=== PATIENT | female | born 1975 | race Two or more races ===

== ENCOUNTER 2024-05-13 08:09 | Outpatient (OUT) | payer BC, SELFPAY ==
--- NOTE | 2024-05-13 | XR_ITS ---
The [address] [address] Patient Name: ALEC LAM MRN: [id number] date: 1975 Sex: F Assigned Patient Location: [facility] Current Patient Location: Accession/Order Number: [id number] Exam Date: 05/13/2024 08:10 Report Date: 05/14/2024 07:55 At the request of: MIGUEL SAAVEDRA Procedure: XR foot RT min 3V PROCEDURE: XR foot RT min 3V HISTORY: RIGHT FOOT PAIN ; chronic first and second metatarsophalangeal joint pain; no known injury COMPARISON: None. FINDINGS: BONES:Mild narrowing of the first metatarsophalangeal joint and tiny degenerative osteophytes along the lateral margin. Mild degenerative hepatic spurring of the calcaneus. No fracture, dislocation, bone lesion. No significant loss of plantar arch. SOFT TISSUES:No visible soft tissue swelling. EFFUSION:None visible. OTHER: Negative. XR/XR foot RT min 3V IMPRESSION: 1. Mild degenerative change of the first metatarsophalangeal joint which may contribute to patient's symptoms. Electronically authenticated by: PER FLYNN Date: 05/14/2024 07:55
== END 2024-05-13 08:10 | disposition home or self-care (01) ==
PROVIDERS: Visit Provider Podiatrist Foot & Ankle Surgery
DX: M79.671 Pain in right foot (principal)
CPT/HCPCS: 73630

== ENCOUNTER 2024-07-13 08:07 | Outpatient (OUT) | payer BC, SELFPAY ==
--- NOTE | 2024-07-13 09:09 | P.GSHP_ITS ---
History of Present Illness History of Present Illness Chief complaint: hallux rigidus right foot Narrative: Patient presents for presurgical testing. The patient reports a long history of right great toe pain for which she has received injections, worn orthotics, and tried alternative footwear with no relief of symptoms. She denies any trauma, injury, numbness, tingling, weakness, or any other complaints. She does take meloxicam which provides little relief. Review of Systems ROS Narrative REVIEW OF SYSTEMS: Negative except as stated in HPI, ten or more systems reviewed. Constitutional: No fever, chills, weakness ENT: No sore throat or epistaxis Cardiovascular: No edema, chest pain, palpitations, or activity intolerance Respiratory: No shortness of breath, cough, or wheezing Gastrointestinal: No abdominal pain, constipation, diarrhea, or vomiting Genitourinary: No dysuria or hematuria Neurological: No numbness, tingling, weakness, or headache Psychiatric: No mood changes PFSH PFSH Medical History (Updated 07/13/24 @ 09:07 by Latoya Martinez NP) Right foot pain ?M79.671 - Pain in right foot (ICD-10) Hallux rigidus ?M20.20 - Hallux rigidus, unspecified foot (ICD-10) Arthritis ?M19.90 - Unspecified osteoarthritis, unspecified site (ICD-10) Shoulder pain ?M25.519 - Pain in unspecified shoulder (ICD-10) Anxiety ?F41.9 - Anxiety disorder, unspecified (ICD-10) Hypertension ?I10 - Essential (primary) hypertension (ICD-10) Postoperative nausea and vomiting ?R11.2 - Nausea with vomiting, unspecified (ICD-10) ?Z98.890 - Other specified postprocedural states (ICD-10) Cubital tunnel syndrome ?G56.20 - Lesion of ulnar nerve, unspecified upper limb (ICD-10) Surgical History (Updated 07/13/24 @ 08:40 by Latoya Martinez NP) History of nasal septoplasty ?Z98.890 - Other specified postprocedural states (ICD-10) History of sinus surgery ?Z98.890 - Other specified postprocedural states (ICD-10) S/P cubital tunnel release ?Z98.890 - Other specified postprocedural states (ICD-10) H/O reduction mammoplasty ?Z98.890 - Other specified postprocedural states (ICD-10) History of breast augmentation ?Z98.82 - Breast implant status (ICD-10) Family History (Updated 07/13/24 @ 08:40 by Latoya Martinez NP) Other Family history of cancer Family history of heart disease Family history of hypertension Family history of myocardial infarction Social History (Updated 07/13/24 @ 08:32 by Latoya Martinez NP) Within the past year, how often did you have a drink containing alcohol: monthly or less Smoking status: Never smoker Non-prescribed substance use: denies use 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 [employer] Highest level of school completed/degree received: high school graduate Meds Home Medications and Allergies Home Medications ?Medication ?Instructions ?Recorded ?Confirmed ?Type citalopram 20 mg tablet 20 mg PO DAILY 07/13/24 07/13/24 History meloxicam 15 mg tablet 15 mg PO DAILY 07/13/24 07/13/24 History valsartan 80 1 tab PO DAILY 07/13/24 07/13/24 History mg-hydrochlorothiazide 12.5 mg tablet Allergies Allergy/AdvReac Type Severity Reaction Status Date / Time Sulfa (Sulfonamide Allergy Rash Verified 07/13/24 08:27 Antibiotics) Exam Narrative Exam Narrative: Constitutional: Awake, alert, comfortable, well-appearing, nontoxic, interactive, vital signs as charted Head: Normocephalic, atraumatic Neck: Supple, normal appearance, normal range of motion, no meningeal signs, no lymphadenopathy Respiratory: No respiratory distress, breath sounds clear Cardiovascular: Regular rate and rhythm, strong and regular heart tones Abdomen: Nontender, normal bowel sounds, soft, no CVA tenderness Musculoskeletal: Normal gait, no swelling or edema, tenderness over the right first MPJ with reduced range of motion, good capillary refill, sensation intact Skin: No rashes or induration, no lesions, only visible skin inspected Neuro: No neurological deficits, normal sensation Psychiatric: Oriented ?3, normal affect Assessment and Plan Assessment and Plan (1) Right foot pain: (2) Hallux rigidus: Plan Right first metatarsal phalangeal joint fusion with bone graft as needed scheduled with Dr. Valdez July 23, 2024.
[2024-07-13 09:52] LABS: Calcium 8.5 mg/dL (8.5-10.1); Carbon Dioxide 29.8 mmol/L (21.0-32.0); Chloride 105 mmol/L (98-107); Estimated GFR (African America >60 (>=60 mL/min/1.73m^2); Estimated GFR (Non-African Ame >60 (>=60 mL/min/1.73m^2); Glucose 81 mg/dL (74-106); Potassium 3.8 mmol/L (3.5-5.1); Sodium 142 mmol/L (136-145)
== END 2024-07-13 08:08 | disposition home or self-care (01) ==
LOC: PST 08:09
PROVIDERS: Visit Provider Podiatrist Foot & Ankle Surgery
DX: Z01.812 Encounter for preprocedural laboratory examination (principal); Z01.818 Encounter for other preprocedural examination; M20.21 Hallux rigidus, right foot
CPT/HCPCS: 36415; 80048; G0463

== ENCOUNTER 2024-07-23 06:07 | Day surgery (SDC) | payer BC, SELFPAY ==
[2024-07-13 09:02] VITALS: BP 129/84; PULSE 67; TEMP 36.3; O2SAT 97; BMI 28.0
[2024-07-23] VITALS (14 sets, daily range): BP systolic 127–152; BP diastolic 81–92; PULSE 76–94; TEMP 36.5–36.8; O2SAT 93–97; BMI 27.6
--- NOTE | 2024-07-23 | FL_ITS ---
[address] [address] Patient Name: ALEC LAM MRN: [id number] date: 1975 Sex: F Assigned Patient [facility]: [facility] Current Patient Location: [facility] Accession/Order Number: [id number] Exam Date: 07/23/2024 09:53 Report Date: 07/24/2024 07:46 At the request of: MIGUEL SAAVEDRA Procedure: FL fluoroscopy <1hr NON-READ EXAM: FL fluoroscopy <1hr NON-READ HISTORY: TECHNIQUE: FINDINGS: Please see Operative Report. Electronically authenticated by: RADIOLOGIST NO Date: 07/24/2024 07:46
--- OUTSIDE RECORDS SUMMARY | 2024-07-23 06:10 | XMS_ITS | CCD ---
Author Organization [facility] Care Team Providers Care Bsa Officer Name Role Phone LeisulemaTomás Primary Care Provider Might STOKER ERECTOR AND SERVICER - CAP BLOCKER, Ana Paula Santizo Primary Care Provider Might STOKER ERECTOR AND SERVICER - CAP BLOCKER, Ana Paula Santizo Primary Care Provider Might STOKER ERECTOR AND SERVICER - CAP BLOCKER, Ana Paula Santizo Primary Care Provider Might STOKER ERECTOR AND SERVICER - CAP BLOCKER, Ana Paula Santizo Primary Care Provider Might STOKER ERECTOR AND SERVICER-CAP BLOCKER, Ana Paula Myers Primary Care Un available Kimberlee Malave MD Attending Unavail able Might STOKER ERECTOR AND SERVICER-CAP BLOCKER, Ana Paulabernie Myers Primary Care Un available Kimberlee Malave MD Attending Unavail able Might STOKER ERECTOR AND SERVICER-CAP BLOCKER, Ana Paula [facility] [place] Primary Care Un available Kimberlee Malave MD Attending Unavail able Might STOKER ERECTOR AND SERVICER-CAP BLOCKER, Ana Paula [facility] Care Un available Kimberlee Malave MD Attending Unavail able Might STOKER ERECTOR AND SERVICER-CAP BLOCKER Ana Paula [facility] [place] Primary Care Un available Jessika STOKER ERECTOR AND SERVICER-CAP BLOCKERSameera Attending U navailable Might STOKER ERECTOR AND SERVICER-CAP BLOCKER [facility] Primary Care Un available Jessika STOKER ERECTOR AND SERVICER-CAP BLOCKER, Sameera Herrera Attending U navailable Might STOKER ERECTOR AND SERVICER-CAP BLOCKER [facility] Primary Care Un available Kimberlee Malave MD Attending Unavail able Might STOKER ERECTOR AND SERVICER-CAP BLOCKER, [facility] Primary Care Un available Kimberlee Malave MD Attending Unavail able MIGHT, ANA PAULA Santizo Primary Care Unavailable Sujata ADRIAN Admitting Unavailenrique e Sujata ADRIAN Attending Unavailabl e Sujata ADRIAN Referring Unavailabl e MIGHT, ANA PAULA Santizo Primary Care Unavailable MIGHT, ANA PAULA Santizo Primary Care Unavailable KIMBERLEE MALAVE Referring Unavailable MIGHT, ANA PAULA Santizo Primary Care Unavailable KIMBERLEE MALAVE Referring Unavailable MIGHT, ANA PAULA W Primary Care Unavailable MIGHT, ANA PAULA W Primary Care Unavailable MIGHT, ANA PAULA W Referring Unavailable MIGHT, ANA PAULA W Primary Care Unavailable MIGHT, ANA PAULA W Referring Unavailable MIGHT, ANA PAULA W Primary Care Unavailable JAZZMINE PALMER Referring Unavailabl e MIGHT, ANA PAULA W Primary Care Unavailable KIMBERLEE MALAVE Referring Unavailable MIGHT, ANA PAULA W Primary Care Unavailable MIGHT, ANA PAULA W Referring Unavailable MIGHT, ANA PAULA W Primary Care Unavailable MIGHT, ANA PAULA W Referring Unavailable MIGHT, ANA PAULA W Primary Care Unavailable MIGHT, ANA PAULA W Referring Unavailable MIGHT, ANA PAULA W Primary Care Unavailable MIGHT, ANA PAULA W Referring Unavailable MIGHT, ANA PAULA W Primary Care Unavailable MIGHT, ANA PAULA W Referring Unavailable MIGHT, ANA PAULA W Primary Care Unavailable MIGHT, ANA PAULA W Referring Unavailable MIGHT, ANA PAULA W Primary Care Unavailable MIGHT, ANA PAULA W Referring Unavailable MIGHT, ANA PAULA W Primary Care Unavailable MIGHT, ANA PAULA W Referring Unavailable MIGHT, ANA PAULA W Primary Care Unavailable KIMBERLEE MALAVE Referring Unavailable MIGHT, ANA PAULA W Primary Care Unavailable MIGHT, ANA PAULA W Referring Unavailable MIGHT, ANA PAULA W Primary Care Unavailable MIGHT, ANA PAULA W Referring Unavailable MIGHT, ANA PAULA W Primary Care Unavailable MIGHT, ANA PAULA W Referring Unavailable MIGHT, ANA PAULA W Primary Care Unavailable MIGHT, ANA PAULA W Referring Unavailable MIGHT, ANA PAULA W Primary Care Unavailable MIGHT, ANA PAULA W Referring Unavailable MIGHT, ANA PAULA W Primary Care Unavailable MIGHT, ANA PAULA W Referring Unavailable MIGHT, ANA PAULA W Primary Care Unavailable MIGHT, ANA PAULA W Referring Unavailable MIGHT, ANA PAULA W Primary Care Unavailable MIGHT, ANA PAULA W Referring Unavailable MIGHT, ANA PAULA W Primary Care Unavailable JUDAH RIOS Referring Unavailable JUDAH RIOS Attending Unavailable MIGHT, ANA PAULA W Primary Care Unavailable KIMBERLEE MALAVE Referring Unavailable MIGHT, ANA PAULA W Primary Care Unavailable JAZZMINE PALMER Referring Unavailabl e JAZZMINE PALMER Attending Unavailabl e MIGHT, ANA PAULA W Primary Care Unavailable KIMBERLEE MALAVE Referring Unavailable MIGHT, ANA PAULA W Primary Care Unavailable MIGHT, ANA PAULA W Referring Unavailable Allergies Allergy Classification Reported Allergen(s) Allergy Type Date of Onset Reaction(s) Facility (20 sources) Sulfamethoxazole / Trimethoprim Drug Allergy 07-30-20 16 [place], [place] (1 source) Sulfonamides (Antibiotic); Translations: [sulfa drugs] Propensity to adverse reactions to drug (disorder) [facility] Medications Current Medications Medication Drug Class(es) Dates Sig (Normalized) Sig (Original) acetaminophen 325 mg / oxyCODONE hydrochloride 5 mg oral tablet (2 sources) Opioid Agonist Start: 06-08-2024 End: 06-15-2024 oxyCODONE-acetamin ophen (PERCOCET) 5-325 MG per tablet Indications: Pain following surgery or procedure Take 1 tablet by mouth every 6 hours as needed for Pain for up to 7 days. Intended supply: 7 days. Take lowest dose possible to manage pain Max Daily Amount: 4 tablets 28 tablet 06/08/2024 06/15/2024 Active Start: 06-08-2024 End: 06-08-2024 take 1 tablet by mouth every twenty-four hours 1 tablet, Oral, ONCE, 1 dose, On Sat06/08/24 at 1245, Maximum dose of acetaminophen is 4000 mg from all sources in 24 hours., STAT [id number] 200 actuat albuterol 0.09 mg/actuat metered dose inhaler (1 source) beta2-Adrenergic Agonist Start: 08-16-2023 take 2 puff(s) by inhalation four times daily as needed for wheezing albuterol sulfate HFA (VENTOLIN HFA) 108 (90 Base) MCG/ACT inhaler Indications: Acute bronchitis, unspecified organism , Mild intermittent reactive airway disease with acute exacerbation Inhale 2 puffs into the lungs 4 times daily as needed for Wheezing 18 g 1 08/16/2023 Active amoxicillin 875 mg / clavulanate 125 mg oral tablet (1 source) Penicillin-class Antibacterial Start: 07-15-2024 End: 07-25-2024 take 1 tablet by mouth twice daily amoxicillin-clav ulanate (AUGMENTIN) 875-125 MG per tablet Take 1 tablet by mouth 2 times daily for 10 days 20 tablet 07/15/2024 07/25/2024 Active azelastine hydrochloride 0.137 mg/actuat metered dose nasal spray (2 sources) Histamine-1 Receptor Antagonist Start: 08-30-2022 take 1 spray(s) nasal route twice daily Azelastine HCl 137 MCG/SPRAY SOLN INSTILL 1 SPRAY INTO NOSTRIL(S) TWICE A DAY 0 08/30/2022 Active baclofen 20 mg oral tablet (6 sources) gamma-Aminobutyric Acid-ergic Agonist Start: 08-15-2022 baclofen (LIORESAL) 20 MG tablet Indications: Left sided sciatica Take 1 tablet by mouth in the morning and 1 tablet at noon and 1 tablet before bedtime. 30 tablet 0 03/19/2022 Active betamethasone 0.5 mg/ml / clotrimazole 10 mg/ml topical cream (3 sources) Azole Antifungal, Corticosteroid Start: 12-22-2019 clotrimazole-bet amethasone (LOTRISONE) 1-0.05 % cream Indications: Recurrent candidiasis of vagina Apply topically 2 times daily. 45 g 1 12/22/2019 Active Start: 10-01-2019 clotrimazole-b etamethasone (LOTRISONE) 1-0.05 % cream Indications: Acute vaginitis Apply topically 2 times daily. 1 Tube 1 10/01/2019 Active calcium chloride 0.0014 meq/ml / potassium chloride 0.004 meq/ml / sodium chloride 0.103 meq/ml / sodium lactate 0.028 meq/ml injectable solution (1 source) Start: 06-08-2024 IntraVENous, at 125 mL/hr, CONTINUOUS, Starting on Sat06/08/24 at 0730, Pre-op (day of surgery) cephalexin 500 mg oral capsule (7 sources) Cephalosporin Antibacterial Start: 06-01-2024 take 1 capsule by mouth four times daily cephALEXin (KEFLEX) 500 MG capsule Take 1 capsule by mouth 4 times daily Start 3 days prior to procedure 40 capsule 06/01/2024 Active ciprofloxacin 500 mg oral tablet (1 source) Quinolone Antimicrobial Start: 07-06-2024 End: 07-13-2024 take 1 tablet by mouth twice daily ciprofloxacin (CIPRO) 500 MG tablet Take 1 tablet by mouth 2 times daily for 7 days 14 tablet 07/06/2024 07/13/2024 Active citalopram 20 mg oral tablet (20 sources) Serotonin Reuptake Inhibitor Start: 01-02-2024 take 1 tablet by mouth once daily citalopram (CELEXA) 20 MG tablet Indications: Stress TAKE 1 TABLET BY MOUTH EVERY DAY 90 tablet 3 01/02/2024 Active Start: 07-08-2023 take 1 tablet by moise once daily citalopram (CELEXA) 20 MG tablet Indications: Stress TAKE 1 TABLET BY MOUTH EVERY DAY 90 tablet 1 07/08/2023 Active Start: 06-06-2022 take 1 tablet by moise th once daily citalopram (CELEXA) 20 MG tablet TAKE 1 TABLET BY MOUTH DAILY 0 06/06/2022 Active citalopram (MARIA GUADALUPE XA) 10 MG tablet Take 10 mg by mouth 0 Active clindamycin 20 mg/ml vaginal cream (2 sources) Lincosamide Antibacterial Start: 09-17-2022 clindamycin (CLEOCIN ) 2 % vaginal cream Indications: BV (bacterial vaginosis) Place vaginally nightly. For 5 nights 40 g 0 09/17/2022 Active Start: 10-19-2019 clindamycin (C LEOCIN) 2 % vaginal cream Indications: BV (bacterial vaginosis) Place vaginally nightly. For 7 nights 40 g 0 10/19/2019 Active diclofenac sodium 75 mg delayed release oral tablet (6 sources) Nonsteroidal Anti-inflammatory Drug Start: 06-15-2020 diclofenac (VOLTAREN) 75 MG EC tablet doxycycline hyclate 100 mg oral tablet (3 sources) Tetracycline-class Drug Start: 05-21-2024 End: 05-31-2024 take 1 tablet by mouth twice daily doxycycline hyclate (VIBRA-TABS) 100 MG tablet Indications: Acute non-recurrent sinusitis, unspecified location Take 1 tablet by mouth 2 times daily for 10 days 20 tablet 05/21/2024 05/31/2024 Active take 1 tablet by mouth twice mitch ly doxycycline hyclate (PERIOSTAT) 20 MG tablet Take 1 tablet by mouth 2 times daily Unsure of dosage 0 Active drospirenone 4 mg oral tablet (6 sources) Progestin Start: 07-13-2021 take 1 tablet by mouth once daily SLYND 4 MG TABS TAKE ONE (1) TABLET BY MOUTH DAILY 28 tablet 2 07/13/2021 Active fluconazole 150 mg oral tablet (20 sources) Azole Antifungal Start: 04-13-2024 End: 05-21-2024 take 1 tablet by mouth once daily as needed fluconazole (DIFLUCAN) 150 MG tablet Indications: Yeast infection Take 1 tablet by mouth daily as needed (yeast) 3 tablet 1 04/13/2024 Active Start: 09-24-2023 take 1 tablet by moise th once daily fluconazole (DIFLUCAN) 150 MG tablet Indications: Acute vaginitis Take 1 tablet by mouth daily 3 tablet 0 09/24/2023 Active Start: 04-27-2022 take 1 tablet by moise th once daily as needed fluconazole (DIFLUCAN) 150 MG tablet Indications: Yeast vaginitis Take 1 tablet by mouth daily as needed (yeast) 3 tablet 1 04/27/2022 Active Start: 04-04-2020 fluconazole (D IFLUCAN) 150 MG tablet Start: 05-12-2019 take 1 tablet by moise th once daily fluconazole (DIFLUCAN) 150 MG tablet Indications: Acute vaginitis Take 1 tablet by mouth daily 3 tablet 0 05/12/2019 Active hydroCHLOROthiazide 12.5 mg / valsartan 80 mg oral tablet (18 sources) Thiazide Diuretic, Angiotensin 2 Receptor Justyn Start: 01-02-2024 take 1 tablet by mouth once daily valsartan-hydroCHLOROthiazide (DIOVAN-HCT) 80-12.5 MG per tablet Indications: Primary hypertension TAKE 1 TABLET BY MOUTH EVERY DAY 90 tablet 3 01/02/2024 Active Start: 08-02-2023 take 1 tablet by moise th once daily valsartan-hydroCHLOROthiazide (DIOVAN-HC T) 80-12.5 MG per tablet Indications: Primary hypertension Take 1 tablet by mouth daily 90 tablet 1 08/02/2023 Active 200 actuat levalbuterol 0.045 mg/actuat metered dose inhaler (2 sources) beta2-Adrenergic Agonist Start: 08-21-2023 take 1-2 puff(s) by inhalation every four hours as needed for wheezing levalbuterol (XOPENEX HFA) 45 MCG/ACT inhaler Inhale 1-2 puffs into the lungs every 4 hours as needed for Wheezing 15 g 2 08/21/2023 Active 10 ml lidocaine hydrochloride 10 mg/ml injection (1 source) Antiarrhythmic, Amide Local Anesthetic Start: 06-08-2024 End: 06-09-2024 take 1 dose intravenously once daily 1 mL, IntraDERmal, ONCE PRN, 1 dose, Starting on Sat06/08/24 at 0705, Until Sat06/09/24 at 0705, IV start, Pre-op (day of surgery) medroxyPROGESTERone acetate 5 mg oral tablet (1 source) Progestin Start: 03-29-2022 take 1 tablet by mouth in the morning medroxyPROGESTERone (PROVERA) 5 MG tablet Take 1 tablet by mouth in the morning and 1 tablet in the evening. Do all this for 7 days. 14 tablet 0 03/29/2022 Active metroNIDAZOLE 500 mg oral tablet (1 source) Nitroimidazole Antimicrobial Start: 05-31-2020 End: 06-07-2020 take 1 tablet by mouth twice daily metroNIDAZOLE (FLAGYL) 500 MG tablet Indications: Vaginal discharge Take 1 tablet by mouth 2 times daily for 7 days 14 tablet 0 05/31/2020 06/07/2020 Active predniSONE 20 mg oral tablet (2 sources) Start: 05-21-2024 End: 05-26-2024 take 2 tablets by mouth once daily predniSONE (DELTASONE) 20 MG tablet Indications: Acute non-recurrent sinusitis, unspecified location Take 2 tablets by mouth daily for 5 days 10 tablet 05/21/2024 05/26/2024 Active 72 hr scopolamine 0.0139 mg/hr transdermal system (1 source) Anticholinergic Start: 06-08-2024 End: 06-11-2024 1 patch, TransDERmal, Administer over 72 Hours, EVERY 72 HOURS, First dose on Sat06/08/24 at 0730, For 1 dose, Remove in 72 hours, Multiphase Phase of Care tranexamic acid 650 mg oral tablet (1 source) Antifibrinolytic Agent Start: 06-05-2022 take 2 tablets by mouth three times daily tranexamic acid (LYSTEDA) 650 MG TABS tablet Take 2 tablets by mouth 3 times daily 30 tablet 3 06/05/2022 Active valACYclovir 1000 mg oral tablet (15 sources) Herpesvirus Nucleoside Analog DNA Polymerase Inhibitor, Herpes Simplex Virus Nucleoside Analog DNA Polymerase Inhibitor, Herpes Zoster Virus Nucleoside Analog DNA Polymerase Inhibitor Start: 10-08-2023 take 2 tablets by mouth once daily valACYclovir (VALTREX) 1 g tablet Indications: Herpes genitalis in women Take 2 tablets by mouth daily 90 tablet 3 10/08/2023 Active Start: 09-23-2023 take 1 tablet by moise th twice daily valACYclovir (VALTREX) 500 MG tablet Take 1 tablet by mouth 2 times daily 6 tablet 6 09/23/2023 Active Start: 04-30-2022 take 1 tablet by moise th twice daily valACYclovir (VALTREX) 500 MG tablet Indications: Herpes genitalis in women One tablet by mouth twice a day for 5 days each episode. 30 tablet 3 04/30/2022 Active Start: 07-24-2019 take 1 tablet by moise th twice daily valACYclovir (VALTREX) 500 MG tablet Indications: Herpes genitalis in women One tablet by mouth twice a day for 5 days each episode. 30 tablet 8 07/24/2019 Active Start: 03-17-2019 take 1 tablet by moise th twice daily valACYclovir (VALTREX) 500 MG tablet Indications: Herpes genitalis in women One tablet by mouth twice a day for 5 days each episode. 30 tablet 1 03/17/2019 Active Completed/Discontinued Medications Medication Drug Class(es) Dates Sig (Normalized) Sig (Original) aprepitant 40 mg oral capsule (1 source) Substance P/Neurokinin-1 Receptor Antagonist Start: 06-08-2024 End: 06-08-2024 take 1 dose by mouth once daily 40 mg, Oral, ONCE, 1 dose, On 06/08/24 at 0730, Pre-op (day of surgery) celecoxib 200 mg oral capsule (20 sources) Nonsteroidal Anti-inflammatory Drug Start: 01-02-2024 End: 06-02-2024 take 1 capsule by mouth once daily celecoxib (CELEBREX) 200 MG capsule Indications: Generalized OA TAKE 1 CAPSULE BY MOUTH EVERY DAY 90 capsule 1 01/02/2024 06/02/2024 Discontinued (LIST CLEANUP) Start: 07-08-2023 take 1 capsule by mo [facility] once daily celecoxib (CELEBREX) 200 MG capsule Indications: Generalized OA TAKE 1 CAPSULE BY MOUTH EVERY DAY 90 capsule 1 07/08/2023 Active Start: 06-22-2022 take 1 capsule by mo [facility] once daily celecoxib (CELEBREX) 200 MG capsule Indications: Generalized OA TAKE 1 CAPSULE BY MOUTH EVERY DAY 90 capsule 1 06/22/2022 Active Start: 12-29-2021 take 1 capsule by mo ut once daily celecoxib (CELEBREX) 200 MG capsule Indications: Generalized OA Take 1 capsule by mouth daily 90 capsule 1 12/29/2021 Active 24 hr metFORMIN hydrochloride 500 mg extended release oral tablet (8 sources) Biguanide Start: 02-17-2024 End: 06-02-2024 take 1 tablet by mouth once daily at breakfast metFORMIN (GLUCOPHAGE-XR) 500 MG extended release tablet Take 1 tablet by mouth daily (with breakfast) 90 tablet 1 02/17/2024 06/02/2024 Discontinued (LIST CLEANUP) 5 ml sodium chloride 9 mg/ml injection (3 sources) Start: 06-08-2024 5-40 mL, Intra VENous, EVERY 12 HOURS SCHEDULED (2 times per day), First dose on Sat06/08/24 at 0900, Until Discontinued, For Line Patency: Peripheral IV = 5 mL; Midline or Central Line = 10 mL/lumen. If following IV push medication, administer flush at same rate as the IV push. Flush volume is determined by type of infusion therapy being given. For non-viscous solutions use: Peripheral IV = 5 mL Midline or Central Line = 10 mL/lumen For viscous solutions (i.e. blood components, parenteral nutrition, contrast media, or after obtaining blood sample) use: Peripheral IV = 10 mL Midline or Central Line = 20 mL/lumen, Pre-op (day of surgery) Start: 06-08-2024 take 20 mL intraveno usly every hour IntraVENous, at 5-250 mL/hr, PRN, if patient receiving piggyback infusions and maintenance fluids are not ordered OR KVO fluids to protect IV site / prevent frequent line interruptions/ long duration, Starting on Sat06/08/24 at 0705, For piggyback infusion, administer at same rate as piggyback for a total of 25 mL. Enter 25 mL into dose field and piggyback rate into rate field of order. If piggyback is infusing at a rate less than 100 mL/hr, enter 25 mL into dose field and 100 mL/hr into rate field of order. For KVO fluids, enter rate of 20 mL/hr or less into rate field of order., Pre-op (day of surgery) Start: 06-08-2024 5-40 mL, Intra VENous, PRN, Starting on Sat06/08/24 at 0705, Until Discontinued, Line Care, After every IV line use, For Line Patency: Peripheral IV = 5 mL; Midline or Central Line = 10 mL/lumen. If following IV push medication, administer flush at same rate as the IV push. Flush volume is determined by type of infusion therapy being given. For non-viscous solutions use: Peripheral IV = 5 mL Midline or Central Line = 10 mL/lumen For viscous solutions (i.e. blood components, parenteral nutrition, contrast media, or after obtaining blood sample) use: Peripheral IV = 10 mL Midline or Central Line = 20 mL/lumen, Pre-op (day of surgery) Problems Active Problems Problem Classification Problem Date Documented Date Episodic/Chronic Adjustment disorders (20 sources) Stress; Translations: [Reaction to severe stress, unspecified] Onset: 12-29-2021 12-29-2021 Chronic Disorders of lipid metabolism (18 sources) Dyslipidemia; Translations: [Hyperlipidemia, unspecified] Onset: 02-01-2023 02-01-2023 Chronic Osteoarthritis (20 sources) Degenerative joint disease involving multiple joints; Translations: [Polyosteoarthritis, unspecified] Onset: 12-29-2021 12-29-2021 Chronic Other nervous system disorders (1 source) Postoperative pain ; Translations: [Other acute postprocedural pain] 06-08-2024 Episodic Other nervous system disorders (1 source) Other acute postprocedural pain; Translations: [Other acute postprocedural pain] Onset: 06-08-2024 Episodic Other screening for suspected conditions (not mental disorders or infectious disease) (7 sources) Cancer cervix screening status; Translations: [Encounter for screening for malignant neoplasm of cervix] Onset: 10-08-2023 Episodic Spondylosis; intervertebral disc disorders; other back problems (20 sources) 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; Translations: [Other cervical disc displacement, unspecified cervical region] Onset: 12-29-2021 12-29-2021 Chronic Thyroid disorders (1 source) Goiter; 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 Unclassified (1 source) Cancer cervix screening status; Translations: [Screening for cervical cancer] Past or Other Problems Problem Classification Problem Date Documented Date Episodic/Chronic Acquired foot deformities (14 sources) Acquired deformity of toe; Translations: [Other deformities of toe(s) (acquired), right foot] Onset: 12-27-2023 12-27-2023 Episodic Inflammatory diseases of female pelvic organs (20 sources) Acute vaginitis; Translations: [Bacterial vaginosis] Onset: 12-22-2019 Resolved: 12-27-2023 12-22-2019 Episodic Mycoses (20 sources) Recurrent candidiasis of vagina; Translations: [Recurrent candidiasis of vagina] Onset: 12-22-2019 12-22-2019 Episodic Other connective tissue disease (20 sources) Bicipital tenosynovitis; Translations: [Bicipital tendinitis, unspecified shoulder] Onset: 12-29-2021 Resolved: 12-27-2023 12-29-2021 Episodic Other connective tissue disease (20 sources) Bursitis of right shoulder; Translations: [Bursitis of right shoulder] Onset: 12-29-2021 Resolved: 09-12-2023 12-29-2021 Episodic Other connective tissue disease (20 sources) Tendinitis of left rotator cuff; Translations: [Other shoulder lesions, left shoulder] Onset: 12-29-2021 Resolved: 09-12-2023 12-29-2021 Episodic Other connective tissue disease (15 sources) Metatarsalgia of right foot; Translations: [Metatarsalgia, right foot] Onset: 12-27-2023 12-27-2023 Episodic Other connective tissue disease (1 source) Metatarsalgia, right foot; Translations: [Metatarsalgia, right foot] Onset: 12-27-2023 Episodic Other non-traumatic joint disorders (20 sources) Shoulder joint pain; Translations: [Pain in unspecified shoulder] Onset: 12-29-2021 Resolved: 09-12-2023 12-29-2021 Episodic Other nutritional; endocrine; and metabolic disorders (20 sources) Body mass index 25-29 - overweight; Translations: [Overweight] Onset: 12-29-2021 12-29-2021 Episodic Spondylosis; intervertebral disc disorders; other back problems (20 sources) Cervical radiculopathy; Translations: [Radiculopathy, cervical region] Onset: 12-29-2021 12-29-2021 Episodic Results Test Name Value Interpretation Reference Range [facility] Basic Metabolic Panelon 10-1 Anion gap [Moles/Vol] 12 mmol/L 9 - 16 mmol/L [facility] Calcium [Mass/Vol] 9.3 mg/dL 8.6 - 10. 4 mg/dL [facility] Chloride [Moles/Vol] 100 mmol/L 98 - 10 7 mmol/L [facility] CO2 [Moles/Vol] 26 mmol/L 20 - 31 mmol/L [facility] Creatinine [Mass/Vol] 0.9 mg/dL 0.50 - 0.90 mg/dL [facility] Est, Glom Filt Rate 83 - PINF [facility] Comment on above: These results are not intended for use in patients <18 years of age. eGFR results are calculated without a race factor using the 2020 CKD-EPI equation. Careful clinical correlation is recommended, particularly when comparing to results calculated using previous equations. The CKD-EPI equation is less accurate in patients with extremes of muscle mass, extra-renal metabolism of creatine, excessive creatine ingestion, or following therapy that affects renal tubular secretion. Glucose [Mass/Vol] 85 mg/dL 74 - 99 mg/dL [facility] Potassium [Moles/Vol] 3.9 mmol/L 3.7 - 5.3 mmol/L [facility] Sodium [Moles/Vol] 138 mmol/L 136 - 145 mmol/L [facility] Urea nitrogen [Mass/Vol] 16 mg/dL 6 - 20 mg/dL [facility] Basic Metabolic Profon 05-22 Anion gap [Moles/Vol] 12 mmol/L Normal 9-16 [facility] Comment on above: Performed By: #### B MP, CBC #### [address] [id number] Shotblaster: Cory Farmer MD Calcium [Mass/Vol] 9.3 mg/dL Normal 8.6-10.4 [facility] Comment on above: Performed By: #### B MP, CBC #### [facility] [address] [place] [id number] Shotblaster: Cory Farmer MD Chloride [Moles/Vol] 100 mmol/L Normal 98-107 [facility] Comment on above: Performed By: #### B MP, CBC #### [facility] [address] [place] [id number] Shotblaster: Cory Farmer MD CO2 [Moles/Vol] 26 mmol/L Normal 20-31 [facility] Comment on above: Performed By: #### B MP, CBC #### [facility] [address] [place] [id number] Shotblaster: Cory Farmer MD Creatinine [Mass/Vol] 0.9 mg/dL Normal 0.50-0.90 [facility] Comment on above: Performed By: #### B MP, CBC #### [facility] [address] [place] [phone] Shotblaster: Cory Farmer MD GFR/1.73 sq M.predicted among non-blacks MDRD (S/P/Bld) [Vol rate/Area] 83 mL/min/{1.73_m2} Normal >60 [facility] Comment on above: Result Comment: These results are not intended for use in patients <18 years of age. eGFR results are calculated without a race factor using the 2020 CKD-EPI equation. Careful clinical correlation is recommended, particularly when comparing to results calculated using previous equations. The CKD-EPI equation is less accurate in patients with extremes of muscle mass, extra-renal metabolism of creatine, excessive creatine ingestion, or following therapy that affects renal tubular secretion. Performed By: #### B MP, CBC #### [facility] [address] [place] [phone] Shotblaster: Cory Farmer MD Glucose [Mass/Vol] 85 mg/dL Normal 74-99 [facility] Comment on above: Performed By: #### B MP, CBC #### [facility] [address] [place] [phone] Shotblaster: Cory Farmer MD Potassium [Moles/Vol] 3.9 mmol/L Normal 3.7-5.3 [facility] Comment on above: Performed By: #### B MP, CBC #### [facility] [address] [place] [phone] Shotblaster: Cory Farmer MD Sodium [Moles/Vol] 138 mmol/L Normal 136-145 [facility] Comment on above: Performed By: #### B MP, CBC #### [facility] [address] [place] [address] [phone] Shotblaster: Cory Farmer MD Urea nitrogen [Mass/Vol] 16 mg/dL Normal 6-20 [facility] Comment on above: Performed By: #### B MP, CBC #### [facility] [address] [place], [place] [phone] Shotblaster: Cory Farmer MD CBCon 05-22-2024 Erythrocyte distribution width (RBC) [Ratio] 12.4 % 11.8 - 14.4 % [facility] Hematocrit (Bld) [Volume fraction] 41.5 % 36.3 - 47.1 % [facility] Hemoglobin (Bld) [Mass/Vol] 13.9 g/dL 11.9 - 15.1 g/dL [facility] MCH (RBC) [Entitic mass] 31.7 pg 25.2 - 33.5 pg [facility] MCHC (RBC) [Mass/Vol] 33.5 g/dL 28.4 - 34.8 g/dL [facility] MCV (RBC) [Entitic vol] 94.7 fL 82.6 - 102.9 fL [facility] Nucleated RBC/100 WBC (Bld) [Ratio] 0.0 % 0.0 per 100 WBC [facility] Platelet mean volume (Bld) [Entitic vol] 9.9 fL 8.1 - 13.5 fL [facility] Platelets (Bld) [#/Vol] 190 10*3/uL [facility] RBC (Bld) [#/Vol] 4.38 10*6/uL 3.95 - 5.1 1 m/uL [facility] WBC other (Bld) [#/Vol] 6.7 [facility] Erythrocyte distribution width (RBC) [Ratio] 12.4 % Normal 11.8-14.4 [facility] Comment on above: Performed By: #### B MP, CBC #### [facility] [address] [place], [place] [phone] Shotblaster: Cory Farmer MD Hematocrit (Bld) [Volume fraction] 41.5 % Normal 36.3-47.1 [facility] Comment on above: Performed By: #### B MP, CBC #### [address] [address] Shotblaster: Cory Farmer MD Hemoglobin (Bld) [Mass/Vol] 13.9 g/dL Normal 11.9-15.1 [facility] Comment on above: Performed By: #### B MP, CBC #### [address] [address] Shotblaster: Cory Farmer MD MCH (RBC) [Entitic mass] 31.7 pg Normal 25.2-33.5 [facility] Comment on above: Performed By: #### B MP, CBC #### [address] [address] Shotblaster: Cory Farmer MD MCHC (RBC) [Mass/Vol] 33.5 g/dL Normal 28.4-34.8 [facility] Comment on above: Performed By: #### B MP, CBC #### [address] [address] Shotblaster: Cory Farmer MD MCV (RBC) [Entitic vol] 94.7 fL Normal 82.6-102.9 [facility] Comment on above: Performed By: #### B MP, CBC #### [address] [address] Shotblaster: Cory Farmer MD NRBC Automated 0.0 per 100 WBC Normal 0.0 [facility] Comment on above: Performed By: #### B MP, CBC #### [address] [phone] Shotblaster: Cory Farmer MD Platelet mean volume (Bld) [Entitic vol] 9.9 fL Normal 8.1-13.5 [facility] Comment on above: Performed By: #### B MP, CBC #### [facility] [address] [place] [address] Shotblaster: Cory Farmer MD Platelets (Bld) [#/Vol] 190 10*3/uL Normal 138-453 [facility] Comment on above: Performed By: #### B MP, CBC #### [facility] [address] [place] [address] Shotblaster: Cory Farmer MD RBC (Bld) [#/Vol] 4.38 10*6/uL Normal 3.95-5.11 [facility] Comment on above: Performed By: #### B MP, CBC #### [facility] [address] [place] [address] Shotblaster: Cory Farmer MD WBC (Bld) [#/Vol] 6.7 10*3/uL Normal 3.5-11.3 [facility] Comment on above: Performed By: #### B MP, CBC #### [facility] [address] [place] [phone] Shotblaster: Cory Farmer MD MR Foot - right WO contrasto n 04-08-2024 1. No clear MR evidence for metatarsal stress fracture. 2. Probable degenerative marrow edema and intraosseous ganglion formation in the proximal phalanx 1st digit and distal 1st metatarsal. 3. Mild degenerative change of the 1st MTP/MTS joints. Mild hallux valgus/metatarsus varus. [facility] R[facility] CONSOLIDATED EXAMINATION: MRI OF THE RIGHT FOOT WITHOUT CONTRAST, 04/08/2024 8:11 am TECHNIQUE: Multiplanar multisequence MRI of the right foot was performed without the administration of intravenous contrast. COMPARISON: None HISTORY: ORDERING SYSTEM PROVIDED HISTORY: Metatarsalgia, right foot 48-year-old female with right foot metatarsalgia? FINDINGS: LISFRANC JOINT: Lisfranc ligament complex appears continuous/intact. BONE MARROW: No significant marrow edema in the metatarsal diaphyses to suggest metatarsal stress fracture. Marrow edema, subcortical cystic changes or intraosseous ganglion formation involving the distal 1st metatarsal. Probable degenerative marrow edema and intraosseous ganglion formation in the proximal phalanx 1st digit. No marginal erosions. No acute displaced fracture or dislocation. GREATER AND LESSER MTP JOINTS: Mild degenerative change of the 1st MTP/MTS joints. Mild hallux valgus/metatarsus varus at the 1st MTP joint. SOFT TISSUES: No organized fluid collection. Visualized intertarsal musculature grossly unremarkable. TENDONS: Visualized peroneal, flexor, extensor tendons appear grossly intact without evidence of tearing or tenosynovitis. Nhan Allen MD - 04/08/2024 EXAMINATION: MRI OF THE RIGHT FOOT WITHOUT CONTRAST, 04/08/2024 8:11 am TECHNIQUE: Multiplanar multisequence MRI of the right foot was performed without the administration of intravenous contrast. COMPARISON: None HISTORY: ORDERING SYSTEM PROVIDED HISTORY: Metatarsalgia, right foot 48-year-old female with right foot metatarsalgia? FINDINGS: LISFRANC JOINT: Lisfranc ligament complex appears continuous/intact. BONE MARROW: No significant marrow edema in the metatarsal diaphyses to suggest metatarsal stress fracture. Marrow edema, subcortical cystic changes or intraosseous ganglion formation involving the distal 1st metatarsal. Probable degenerative marrow edema and intraosseous ganglion formation in the proximal phalanx 1st digit. No marginal erosions. No acute displaced fracture or dislocation. GREATER AND LESSER MTP JOINTS: Mild degenerative change of the 1st MTP/MTS joints. Mild hallux valgus/metatarsus varus at the 1st MTP joint. SOFT TISSUES: No organized fluid collection. Visualized intertarsal musculature grossly unremarkable. TENDONS: Visualized peroneal, flexor, extensor tendons appear grossly intact without evidence of tearing or tenosynovitis. IMPRESSION: 1. No clear MR evidence for metatarsal stress fracture. 2. Probable degenerative marrow edema and intraosseous ganglion formation in the proximal phalanx 1st digit and distal 1st metatarsal. 3. Mild degenerative change of the 1st MTP/MTS joints. Mild hallux valgus/metatarsus varus. [facility] Radiology Study observation (narrative) [facility] MR Foot - right WO contrastO rdered By: Nhan Dooley on 04-08-2024 [facility] Work Phone: MRI FOOT RIGHT WO CONTRASTon 04-08-2024 MRI FOOT RIGHT WO CONTRAST EXAMINATION: MRI OF THE RIGHT FOOT WITHOUT CONTRAST, 04/08/2024 8:11 am TECHNIQUE: Multiplanar multisequence MRI of the right foot was performed without the administration of intravenous contrast. COMPARISON: None HISTORY: ORDERING SYSTEM PROVIDED HISTORY: Metatarsalgia, right foot 48-year-old female with right foot metatarsalgia? FINDINGS: LISFRANC JOINT: Lisfranc ligament complex appears continuous/intact. BONE MARROW: No significant marrow edema in the metatarsal diaphyses to suggest metatarsal stress fracture. Marrow edema, subcortical cystic changes or intraosseous ganglion formation involving the distal 1st metatarsal. Probable degenerative marrow edema and intraosseous ganglion formation in the proximal phalanx 1st digit. No marginal erosions. No acute displaced fracture or dislocation. GREATER AND LESSER MTP JOINTS: Mild degenerative change of the 1st MTP/MTS joints. Mild hallux valgus/metatarsus varus at the 1st MTP joint. SOFT TISSUES: No organized fluid collection. Visualized intertarsal musculature grossly unremarkable. TENDONS: Visualized peroneal, flexor, extensor tendons appear grossly intact without evidence of tearing or tenosynovitis. IMPRESSION: 1. No clear MR evidence for metatarsal stress fracture. 2. Probable degenerative marrow edema and intraosseous ganglion formation in the proximal phalanx 1st digit and distal 1st metatarsal. 3. Mild degenerative change of the 1st MTP/MTS joints. Mild hallux valgus/metatarsus varus. Interpreted by: Nhan Dooley MD Signed by: Nhan Dooley MD 04/08/24 Final result Normal [facility] Provider Letteron 02-10-2024 Provider Letter Ana Paula Milligan APRN-CAP BLOCKER [address] [place] [address] Re: Alec Richtering 1975 Date of Visit: 01/28/2024 Dear Ana Paula Milligan, I had the pleasure of evaluating your patient, Alec Yeboah, in the [facility] on 01/28/2024. Attached you will find my office visit note with detailed assessment and recommendations. Thank you for allowing me to participate in the care of your kind patient. The patient was provided with discharge instructions, both written and verbal, and follow up has been arranged as stated in the attached note. Please do not hesitate to contact our office with any questions. Sincerely, Kimberlee Malave MD MS Allergy and Immunology [facility] [address] [address] C C Providers: The following document(s) were included in the letter: January 28, 2024 15:19:26 EDT - (01/28/2024) Office Visit Note Normal [facility] Allergy/Immunology Office/Cl inic Noteon 01-28-2024 Allergy/Immunology Office/Clinic Note Chief Complaint PND/sore throat History of Present Illness Alec is a 48 year old female being seen in our office for a follow up of allergic rhinitis. She reports PND, sore throat, nasal drainage, and itchy watery eyes. She denies nasal congestion, and nose bleeds. She denies any ER/UC visits since last office visit. She reports she has needed antibiotics and steroids in July, August, and September of 2023 for reoccurring sinus infections. She continues to take Pataday eye drops for itchy watery eyes. She continues to take oral antihistamine prior to allergy injection immunotherapy only. She continues to receive allergy injection immunotherapy. She denies any adverse reactions at the injection site. She reports she has been receiving allergy immunotherapy since 2004. She reports she is still having reoccurring sinus infections and allergy symptoms. 04/25/2023 Assessment/Plan 1. Chronic allergic rhinitis due to pollen Overall, chronic nasal and sinus symptoms have significantly improved since starting allergy immunotherapy injections. Although over the last year, she has had an increase in recurrent sinus infections requiring antibiotics which has been a change for her. We discussed repeating environmental allergy testing to determine if new sensitizations have occurred and she is agreeable to this plan. -Continue oral antihistamine daily as needed -Notify office if sinus infection occurs -continue allergy shots Schedule repeat skin testing with Dr. Malave 2. Recurrent sinus infections There has been approximately 3-4 sinus infections requiring multiple courses of antibiotics in order to resolve symptoms. She and has been receiving allergy no therapy injections on the reformulated prescription since 2017. [1] Physical Exam Vitals & Measurements HR: 73 (Peripheral) BP: 115/73 HT: 170 cm WT: 79.3 kg WT: 79.3 kg (Dosing) BMI: 27.44 Constitutional: The patient is oriented to person, place, and time and well-developed, well-nourished, and in no distress. HENT: Head: Normocephalic and atraumatic. Right Ear: Tympanic membrane, external ear and ear canal normal. No drainage or tenderness. Tympanic membrane is not injected, not scarred, not perforated, not erythematous and not retracted. Left Ear: Tympanic membrane, external ear and ear canal normal. No drainage or tenderness. Tympanic membrane is not injected, not scarred, not perforated, not erythematous and not retracted. Nose: Mucosal edema moderate (pale boggy nasal mucosa without obstruction or nasal polyps) and rhinorrhea (clear) ispresent. Mouth/Throat: Uvula is midline, oropharynx is clear and moist and mucous membranes are normal. Eyes: Conjunctivae and EOM are normal. Pupils are equal, round, and reactive to light. Neck: Normal range of motion. Neck supple. Cardiovascular: Normal rate and regular rhythm. No murmur heard. Pulmonary/Chest: Effort normal and breath sounds normal. No wheezes. No rales. Abdominal: Soft. Bowel sounds are normal. No masses.Musculoskelet al: Normal range of motion. No visible edema. Neurological: Alert and oriented to person, place, and time. Skin: Skin is warm and dry. No rash noted. Not diaphoretic. No erythema. Psychiatric: Affect normal. Vitals Reviewed Additional Vitals BP Position/Location: Sitting, Left arm Assessment/Plan Chronic allergic rhinitis pollen: Although she has had some improvement in her symptoms with allergen immunotherapy in the discussed that she has had persistent sensitization to trees, grasses, weeds, cat, dog, dust mite, borderline to mold despite allergen immunotherapy and this is likely the cause of her persistent symptoms of recurrent infections. As such we discussed reformulation of her allergen immunotherapy to include allergens that were not previously in her serums including the grasses, weeds, dog, mold and increasing cat/tree/dust mite in her serums. She will restart allergen immunotherapy buildup and is in agreement with this plan. In the meantime she will continue to use oral antihistamines for symptom relief. Chronic allergic conjunctivitis: Alec has had persistent ocular symptoms especially in the winter and spring and I would recommend that she continue Pataday eyedrops as needed. I am hopeful with reformulation of her immunotherapy serums that she will have less frequent need for the eyedrops. Plan - Reformulate allergy injection immunotherapy (Consent form signed ) - Continue allergy injection immunotherapy - Dust mite avoidance hand out given - Zyrtec given (sample given in office) - Follow up 6 months Physician Comments This note was created with the aid of [employer] voice recognition software. Every reasonable effort was made to assure accuracy and reliability of this note despite the inaccuracy, inefficiencies, and flaws of any electronic medical record program. There may be typographical errors that remain unaddressed and this in no way reflects on the quality of patient care received in this (more content not included)... Normal [facility] DBT Breast - bilateral scree n for implanton 11-29-2023 Stable exam. No mammographic evidence of malignancy BIRADS: BIRADS - CATEGORY 2 Benign Findings. Normal interval follow-up is recommended in 12 months. OVERALL ASSESSMENT - BENIGN A letter of notification will be sent to the patient regarding the results. [employer] recommends annual mammograms for women 40 years and older. [facility] EXAMINATION: BREAST SCREENING MAMMOGRAM WITH TOMOSYNTHESIS, 11/29/2023 TECHNIQUE: Screening mammography of the breast was performed with tomosynthesis. 2D standard and 3D tomosynthesis combination imaging performed in the MLO and CC projection. Computer aided detection was utilized in this interpretation of this exam. COMPARISON: November 02, 2022 and September 22, 2021 HISTORY: Screening. FINDINGS: Breasts are composed of scattered fibroglandular density. There is no dominant mass, architectural distortion or concerning grouping of microcalcification in either breast. Bilateral implants stable. [facility] Radiology Study observation (narrative) [facility] DBT Breast - bilateral scree n for implantOrdered By: Kevin Lopez on 11-29-2023 [facility] Work Phone: [facility] RENNY DIGITAL SCREEN AUGM ENTED BILATERALon 11-29-2023 [facility] RENNY DIGITAL SCREEN AUGMENTED BILATERAL EXAMINATION: BREAST SCREENING MAMMOGRAM WITH TOMOSYNTHESIS, 11/29/2023 TECHNIQUE: Screening mammography of the breast was performed with tomosynthesis. 2D standard and 3D tomosynthesis combination imaging performed in the MLO and CC projection. Computer aided detection was utilized in this interpretation of this exam. COMPARISON: November 02, 2022 and September 22, 2021 HISTORY: Screening. FINDINGS: Breasts are composed of scattered fibroglandular density. There is no dominant mass, architectural distortion or concerning grouping of microcalcification in either breast. Bilateral implants stable. IMPRESSION: Stable exam. No mammographic evidence of malignancy BIRADS: BIRADS - CATEGORY 2 Benign Findings. Normal interval follow-up is recommended in 12 months. OVERALL ASSESSMENT - BENIGN A letter of notification will be sent to the patient regarding the results. The [employer] recommends annual mammograms for women 40 years and older. Interpreted by: Kevin Lopez DO Signed by: Kevin Lopez DO 11/29/23 Final result Normal [facility] Cytology Reporton 10-08-2023 Cytology report Cyto stain.thin prep Doc (Cvx/Vag) (NOTE) Path Number: [id number] DIAGNOSIS Imaged ThinPrep Pap - Cervical (1 monolayer slide): Specimen Adequacy: Satisfactory for evaluation. -Endocervical/transf ormation zone component is absent. Descriptive Diagnosis: Negative for intraepithelial lesion or malignancy. Cytotech Screener: EY Electronically Signed Out Betty Alba CT(ASCP) ey/10/17/2023 Source of Specimen: A: Imaged ThinPrep Pap - Cervical (1 monolayer slide) HPV Reflex?............. .........HPV if ASCUS Clinical History Irregular Z12.4 Encounter for screening for malignant neoplasm of cervix LMP: 10/03/2023 Processing Lab: [address] [phone] Interpretation performed at [address] [phone] This Pap Test has been evaluated with the assistance of the ThinPrep Pap Test Imaging System. The Pap smear is a screening test primarily for squamous epithelial lesions, which is subject to both false negative and false positive results. Your patient should be reminded to consult you immediately if she experiences any suspicious signs or symptoms, regardless of her Pap smear result. GYNECOLOGIC CYTOLOGY REPORT Patient Name: CAROLEALEC [facility] Rec: [id number] Ofelia Feliz [facility] ANATOMIC PATHOLOGY [address] [place], [place] [address] Normal [facility] RENNY DIGITAL SCREEN AUGM ENTED BILATERALon 11-02-2022 No mammographic evidence of malignancy BIRADS: BIRADS - CATEGORY 1 Negative. Normal interval follow-up is recommended in 12 months. OVERALL ASSESSMENT - NEGATIVE A letter of notification will be sent to the patient regarding the results. The [employer] recommends annual mammograms for women 40 years and older. [facility] EXAMINATION: BREAST SCREENING MAMMOGRAM WITH TOMOSYNTHESIS, 11/02/2022 TECHNIQUE: Screening mammography of the breast was performed with tomosynthesis. 2D standard and 3D tomosynthesis combination imaging performed in the MLO and CC projection. Computer aided detection was utilized in this interpretation of this exam. COMPARISON: 22 September 2021 HISTORY: Screening. FINDINGS: Breasts are composed of scattered fibroglandular density. There is no dominant mass, architectural distortion or concerning grouping of microcalcification in either breast. Bilateral implants appear stable. [facility] Radiology Study observation (narrative) [employer] Phone: [facility] RENNY DIGITAL SCREEN AUGM ENTED BILATERALOrdered By: Kevin Lopez on 11-02-2022 [facility] Phone: US THYROIDon 07-16-2022 Essentially unremarkable thyroid ultrasound [facility] EXAMINATION: THYROID ULTRASOUND 07/16/2022 COMPARISON: None. HISTORY: ORDERING SYSTEM PROVIDED HISTORY: Thyromegaly TECHNOLOGIST PROVIDED HISTORY: This procedure can be scheduled via [employer]. Access your [employer] account by visiting Dick [employer] Bro. FINDINGS: Right thyroid lobe: 12.1 x 13.3 x 44.1 mm Left thyroid lobe: 11.5 x 11.9 x 41.5 mm Isthmus: 1.5 mm Thyroid Gland: Thyroid gland demonstrates normal echotexture and vascularity. The gland is nonenlarged. Nodules: No solid-appearing thyroid nodules greater than 1 cm in size are present. Tiny colloid cyst in the right lobe measuring up to 3.4 x 2.9 x 3.6 mm. Cervical lymphadenopathy: No abnormal lymph nodes in the imaged portions of the neck. [facility] Zay Oseguera MD - 07/16/2022 EXAMINATION: THYROID ULTRASOUND 07/16/2022 COMPARISON: None. HISTORY: ORDERING SYSTEM PROVIDED HISTORY: Thyromegaly TECHNOLOGIST PROVIDED HISTORY: This procedure can be scheduled via [employer]. Access your [employer] account by visiting Dick [employer] Bro. FINDINGS: Right thyroid lobe: 12.1 x 13.3 x 44.1 mm Left thyroid lobe: 11.5 x 11.9 x 41.5 mm Isthmus: 1.5 mm Thyroid Gland: Thyroid gland demonstrates normal echotexture and vascularity. The gland is nonenlarged. Nodules: No solid-appearing thyroid nodules greater than 1 cm in size are present. Tiny colloid cyst in the right lobe measuring up to 3.4 x 2.9 x 3.6 mm. Cervical lymphadenopathy: No abnormal lymph nodes in the imaged portions of the neck. IMPRESSION: Essentially unremarkable thyroid ultrasound [employer] Phone: Radiology Study observation (narrative) [employer] Phone: US THYROIDOrdered By: Zay salinas on 07-16-2022 [employer] Phone: Otheron 05-12-2019 Direct Exam Positive Abnormal [facility] VAGINITIS DNA PROBEon 2018 Direct Exam Negative [facility] Direct Exam Method of testing is a DNA probe intended for detection and identification of Tiburcio species, Gardnerella vaginalis, and Trichomonas vaginalis nucleic acid in vaginal fluid specimens from patients with symptoms of vaginitis/vaginosis. [facility] Interpretation and review of laboratory results Abnormal [facility] Special Requests NOT REPORTED [facility] Specimen Description .VAGINA [employer] Vital Signs Date Time Vital Sign Value Performing Clinician Lucio nguyen 07-16-2024 13:18-0500 Body temperature 96.69 [degF] [facility] 03 [facility] 07-16-2024 13:18-0500 Diastolic blood pressure 88 mm[Hg] Mth 03 [facility] 07-16-2024 13:18-0500 Heart rate 78 /min [facility] 03 [place] 07-16-2024 13:18-0500 Respiratory rate 20 /min Mth 03 [facility] 07-16-2024 13:18-0500 Systolic blood pressure 124 mm[Hg] Mth 03 [facility] [facility] 07-09[facility]24 13:25-0500 Body temperature 97 [degF] Mth 03 [facility] [place] 07-09-2024 13:25-0500 Diastolic blood pressure 89 mm[Hg] Mth 03 [facility] [place] 07-09-2024 13:25-0500 Heart rate 77 /min Mth 03 Bon [facility] [place] 07-09-2024 13:25-0500 Respiratory rate 18 /min Mth 03 [facility] [place] 07-09-2024 13:25-0500 Systolic blood pressure 143 mm[Hg] Mth 03 [facility] [place] 07-01-2024 15:20-0500 Body temperature 98.2 [degF] Mth 03 [facility] 07-01-2024 15:20-0500 Diastolic blood pressure 73 mm[Hg] Mth 03 Bon [facility] 07-01-2024 15:20-0500 Heart rate 77 /min Mth 03 Bon [facility] [place] 07-01-2024 15:20-0500 Respiratory rate 18 /min Mth 03 Bon [facility] 07-01-2024 15:20-0500 Systolic blood pressure 131 mm[Hg] Mth 03 [facility] [place] 06-25-2024 13:20-0500 Body temperature 96.69 [degF] Mth 03 [facility] [place] 06-25-2024 13:20-0500 Diastolic blood pressure 81 mm[Hg] Mth 03 Bon [facility] [place] 06-25-2024 13:20-0500 Heart rate 74 /min Mth 03 Bon [facility] [place] 06-25-2024 13:20-0500 Respiratory rate 18 /min Mth 03 Bon [facility] [place] 06-25-2024 13:20-0500 Systolic blood pressure 126 mm[Hg] Mth 03 Bon [facility] [place] 06-18-2024 13:18-0500 Body temperature 96.3 [degF] Mth 03 Bon [facility] [facility] [place] 06-18-2024 13:18-0500 Diastolic blood pressure 77 mm[Hg] Mth 03 [facility] 06-18-2024 13:18-0500 Heart rate 70 /min Mth 03 [facility] 06-18-2024 13:18-0500 Respiratory rate 20 /min [facility] 03 [facility] 06-18-2024 13:18-0500 Systolic blood pressure 129 mm[Hg] [facility] 03 [facility] 06-08-2024 13:30-0500 Diastolic blood pressure 76 mm[Hg] VITALY Adrian MD Work Phone: [facility] 06-08-2024 13:30-0500 Heart rate 73 /min VITALY Adrian MD Work Phone: [facility] 06-08-2024 13:30-0500 Respiratory rate 24 /min VITALY Adrian MD Work Phone: [facility] 06-08-2024 13:30-0500 SaO2% (BldA) [Mass fraction] 98 % VITALY Adrian MD Work Phone: [facility] 06-08-2024 13:30-0500 Systolic blood pressure 120 mm[Hg] VITALY Adrian MD Work Phone: [facility] 06-08-2024 11:44-0500 Body temperature 97.7 [degF] VITALY Adrian MD Work Phone: [facility] 06-08-2024 07:36-0500 Body height 170.2 cm VITALY Adrian MD Work Phone: [facility] 06-08-2024 07:36-0500 Body mass index (BMI) [Ratio] 27.57 kg/m2 VITALY Adrian MD Work Phone: [facility] [place] 06-08-2024 07:36-0500 Body weight 79.83 kg VITALY Adrian MD Work Phone: [facility] [place] 05-21-2024 13:18-0400 Body temperature 96.91 [degF] Mth 03 [facility] [place] 05-21-2024 13:18-0400 Diastolic blood pressure 84 mm[Hg] Mth 03 [facility] [place] 05-21-2024 13:18-0400 Heart rate 76 /min Mth 03 [facility] [place] 05-21-2024 13:18-0400 Respiratory rate 20 /min Mth 03 [facility] [place] 05-21-2024 13:18-0400 Systolic blood pressure 142 mm[Hg] Mth 03 [facility] [place] 04-07-2024 13:15-0400 Body temperature 97.59 [degF] Mth 03 [email or web address] 04-07-2024 13:15-0400 Diastolic blood pressure 84 mm[Hg] Mth 03 [email or web address] 04-07-2024 13:15-0400 Heart rate 75 /min Mth 03 [email or web address] 04-07-2024 13:15-0400 Respiratory rate 18 /min Mth 03 [facility] [email or web address] 04-07-2024 13:15-0400 Systolic blood pressure 130 mm[Hg] Mth 03 [email or web address] 03-31-2024 13:10-0400 Body temperature 97.11 [degF] Mth 03 [facility] [email or web address] 03-31-2024 13:10-0400 Diastolic blood pressure 71 mm[Hg] Mth 03 [email or web address] 03-31-2024 13:10-0400 Heart rate 80 /min Mth 03 [facility] [email or web address] 03-31-2024 13:10-0400 Respiratory rate 20 /min Mth 03 [facility] [email or web address] 03-31-2024 13:10-0400 Systolic blood pressure 128 mm[Hg] Mth 03 [facility] [email or web address] 03-17-2024 13:18-0400 Body temperature 97.11 [degF] Mth 03 [facility] [email or web address] 03-17-2024 13:18-0400 Diastolic blood pressure 68 mm[Hg] Mth 03 [facility] [email or web address] 03-17-2024 13:18-0400 Heart rate 73 /min Mth 03 [facility] [email or web address] 03-17-2024 13:18-0400 Respiratory rate 20 /min Mth 03 [facility] [email or web address] 03-17-2024 13:18-0400 Systolic blood pressure 139 mm[Hg] Mth 03 [facility] 03-10-2024 13:15-0400 Body temperature 97.3 [degF] Mth 03 [facility] 03-10-2024 13:15-0400 Diastolic blood pressure 71 mm[Hg] Mth 03 [facility] [email or web address] 03-10-2024 13:15-0400 Heart rate 68 /min Mth 03 [facility] [email or web address] 03-10-2024 13:15-0400 Respiratory rate 20 /min Mth 03 [facility] [email or web address] 03-10-2024 13:15-0400 Systolic blood pressure 125 mm[Hg] Mth 03 [facility] [email or web address] 11-21-2023 13:25-0400 Body temperature 98.01 [degF] Mth 01 [facility] [email or web address] 11-21-2023 13:25-0400 Diastolic blood pressure 79 mm[Hg] Mth 01 [facility] [email or web address] 11-21-2023 13:25-0400 Heart rate 67 /min Mth 01 [facility] [email or web address] 11-21-2023 13:25-0400 Respiratory rate 16 /min Mth 01 [facility] [email or web address] 11-21-2023 13:25-0400 Systolic blood pressure 149 mm[Hg] Mth 01 [facility] [email or web address] 09-24-2023 13:15-0500 Body temperature 97.9 [degF] Mth 01 [facility] [email or web address] 09-24-2023 13:15-0500 Diastolic blood pressure 72 mm[Hg] Mth 01 [facility] [email or web address] 09-24-2023 13:15-0500 Heart rate 72 /min Mth 01 [facility] [email or web address] 09-24-2023 13:15-0500 Respiratory rate 18 /min Mth 01 [facility] [email or web address] 09-24-2023 13:15-0500 Systolic blood pressure 123 mm[Hg] Mth 01 [facility] 08-26-2023 13:13-0500 Body temperature 96.8 [degF] Mth 03 [facility] [email or web address] 08-26-2023 13:13-0500 Diastolic blood pressure 90 mm[Hg] Mth 03 [facility] [email or web address] 08-26-2023 13:13-0500 Heart rate 71 /min [facility] 03 ARTURO [facility] 08-26-2023 13:13-0500 Respiratory rate 20 /min [facility] 03 ARTURO WILSON [email or web address] 08-26-2023 13:13-0500 Systolic blood pressure 143 mm[Hg] [facility] 03 [place] [place] [facility] Encounters Encounter Date Encounter Type Care Provider Facility Start: 07-16-2024 End: 07-16-2024 [facility]ulatory [facility] Start: 07-16-2024 End: 07-16-2024 Subsequent hospital visit by physician [facility] Op Treatment Rm 03 [facility] ([facility] Start: 07-09-2024 End: 07-09-2024 ambulatory [facility] Start: 07-09-2024 End: 07-09-2024 Subsequent hospital visit by physician [facility] Op Treatment Rm 03 [facility] ([facility]) Start: 07-01-2024 End: 07-01-2024 ambulatory ANA PAULA [facility] Start: 07-01-2024 End: 07-01-2024 Subsequent hospital visit by physician [facility] Op Treatment Rm 03 [facility] ([facility]) Start: 06-25-2024 End: 06-25-2024 ambulatory [facility] Start: 06-25-2024 End: 06-25-2024 Subsequent hospital visit by physician [facility] Op Treatment Rm 03 [facility] ([facility]) Start: 06-18-2024 End: 06-18-2024 ambulatory [facility] Start: 06-18-2024 End: 06-18-2024 Subsequent hospital visit by physician [facility] Op Treatment Rm 03 [facility] ([facility]) Start: 06-11-2024 End: 06-11-2024 ambulatory Ana Paula Milligan [employer] Facility:[facility] Start: 06-08-2024 End: 06-08-2024 ambulatory ANA PAULA [facility] Start: 06-08-2024 End: 06-08-2024 Subsequent hospital visit by physician [facility] [place] Comment on above: Pain following surge ry or procedure (Primary Dx) Start: 06-03-2024 End: 06-03-2024 ambulatory ANA PAULA Santizo [facility] Start: 06-03-2024 End: 06-03-2024 Subsequent hospital visit by physician Ana Paula Lopez CNP Work Phone: [facility] EKG Comment on above: Abnormal ECG Start: 05-26-2024 End: 05-26-2024 ambulatory ANA PAULA Santizo [facility] Start: 05-22-2024 End: 05-22-2024 ambulatory A ADILENE ADRIAN [facility] Start: 05-22-2024 Encounter for other preprocedural examination ANA PAULA MILLIGAN [facility] Start: 05-22-2024 End: 05-22-2024 Patient encounter status Ana Paula Milligan APRN - CAP BLOCKER Work Phone: [facility] Start: 05-22-2024 End: 05-22-2024 Subsequent hospital visit by physician Ana Paula Milligan APRN - JOY Work Phone: [facility] Draw Comment on above: Pre-op testing Start: 05-21-2024 End: 05-21-2024 ambulatory ANA PAULA Santizo M[facility] Start: 05-21-2024 End: 05-21-2024 Subsequent hospital visit by physician [facility] Op Treatment 03 [facility] Start: 05-14-2024 End: 05-14-2024 ambulatory ANA PAULA W [facility]IGHT [facility] Start: 05-05-2024 End: 05-05-2024 ambulatory ANA PAULA W MIGHT [facility] Start: 04-28-2024 End: 04-28-2024 ambulatory ANA PAULA W MIGHT [facility] Start: 04-21-2024 End: 04-21-2024 ambulatory ANA PAULA W MIGHT [facility] Start: 04-15-2024 End: 04-15-2024 ambulatory Ana Paula Myers José [employer] Facility:[facility] Start: 04-08-2024 End: 04-10-2024 ambulatory ANA PAULA W MIGHT [facility] Start: 04-08-2024 End: 04-10-2024 Subsequent hospital visit by physician Judah Rios DPM Work Phone: [facility] Comment on above: Metatarsalgia, right foot Start: 04-07-2024 End: 04-07-2024 ambulatory ANA PAULA W [facility] Start: 04-07-2024 End: 04-07-2024 Subsequent hospital visit by physician [facility] Op Treatment 03 [facility] Start: 03-31-2024 End: 03-31-2024 ambulatory ANA PAULA W [facility]IGHT [facility] Start: 03-31-2024 End: 03-31-2024 Subsequent hospital visit by physician [facility] Op Treatment 03 [facility] Start: 03-24-2024 End: 03-24-2024 ambulatory ANA PAULA W [facility]IGHT [facility] Start: 03-17-2024 End: 03-17-2024 ambulatory ANA PAULA W [facility] Start: 03-17-2024 End: 03-17-2024 Subsequent hospital visit by physician [facility] Op Treatment 03 [facility] Start: 03-10-2024 End: 03-10-2024 ambulatory ANA PAULA W [facility] Start: 03-10-2024 End: 03-10-2024 Subsequent hospital visit by physician [facility] Op Treatment 03 [facility] Start: 03-03-2024 End: 03-03-2024 ambulatory ANA PAULA W [facility]IGHT [facility] Start: 02-25-2024 End: 02-25-2024 ambulatory ANA PAULA W [facility]IGHT [facility] Start: 02-18-2024 End: 02-18-2024 ambulatory Ana Paula Milligan [employer]ICER-[employer] BLOCK[employer] Facility:[facility] Start: 02-05-2024 End: 02-05-2024 ambulatory Ana Paula Milligan [employer]IC[employer] BLOCKER Facility:[facility] Start: 02-04-2024 End: 02-04-2024 ambulatory Ana Paula Milligan [employer]ICER-CAP BLOCKER Facility:[facility] Start: 01-31-2024 End: 01-31-2024 ambulatory Ana Paula Milligan [employer] SERVICER-[employer] BLOCKER Facility:[facility] Start: 01-28-2024 ambulatory Ana Paula Louis Milligan [employer] AND SERVICER-CAP BLOCKER Facility:[facility] Start: 01-28-2024 End: 01-28-2024 ambulatory Ana Paula Louis Milligan [employer] AND SERVICER-CAP BLOCKER Facility:[facility] Start: 01-14-2024 End: 01-14-2024 ambulatory ANA PAULA W [facility]IGHT [facility] Start: 12-17-2023 End: 12-17-2023 ambulatory ANA PAULA W [facility]IGHT [facility] Start: 11-29-2023 End: 12-01-2023 ambulatory ANA PAULA W MIGHT [facility] Start: 11-29-2023 End: 12-01-2023 Subsequent hospital visit by physician Jazzmine Palmer APRN - CN Work Phone: [facility] Mammography Comment on above: Screening mammogram, encounter for Start: 11-21-2023 End: 11-21-2023 ambulatory ANA PAULA W MIGHT [facility] Start: 11-21-2023 End: 11-21-2023 Subsequent hospital visit by physician [facility] Op Treatment Rm 01 [facility] Start: 10-22-2023 End: 10-22-2023 ambulatory ANA PAULA W [facility]IGHT [facility] Start: 10-08-2023 End: 10-08-2023 ambulatory ANA PAULA W MIGHT [facility] Start: 09-24-2023 End: 09-24-2023 ambulatory ANA PAULA W MIGHT [facility] Start: 09-24-2023 End: 09-24-2023 Subsequent hospital visit by physician [facility] Op Treatment Rm 01 [facility] ([facility]) Start: 08-26-2023 End: 08-26-2023 ambulatory ANA PAULA W [facility]IGHT [facility] Start: 08-26-2023 End: 08-26-2023 Subsequent hospital visit by physician [facility] Op Treatment Rm 03 [facility] ([facility]) Start: 07-23-2023 End: 07-23-2023 ambulatory ANA PAULA W MIGHT [facility] Start: 11-02-2022 End: 11-04-2022 Subsequent hospital visit by physician [facility] Mammography Room [facility] Mammography Comment on above: Screening mammogram, encounter for Start: 09-12-2022 End: 09-12-2022 Subsequent hospital visit by physician Ana Paula Milligan APRN - CAP BLOCKER Work Phone: [facility] Laboratory Comment on above: Screening for malign ant neoplasm of cervix; Acute vaginitis Start: 07-16-2022 End: 07-18-2022 Subsequent hospital visit by physician [facility] Ultrasound Room [facility] Ultrasound Comment on above: Thyromegaly Start: 05-23-2022 End: 05-23-2022 Subsequent hospital visit by physician Mac Roper PT [facility] Physical Therapy Comment on above: Arrived Start: 05-16-2022 End: 05-16-2022 Subsequent hospital visit by physician Mac Roper PT [facility] Physical Therapy Comment on above: Arrived Start: 05-14-2022 End: 05-14-2022 Subsequent hospital visit by physician Aakash Charles PTA [facility] Physical Therapy Comment on above: Arrived Start: 05-11-2022 End: 05-11-2022 Subsequent hospital visit by physician Aakash Charles PTA [facility] Physical Therapy Comment on above: Arrived Start: 05-10-2022 End: 05-10-2022 Subsequent hospital visit by physician Mac Roper PT [facility] Physical Therapy Comment on above: Arrived Start: 05-09-2022 End: 05-09-2022 Subsequent hospital visit by physician Wicho Simmons PT [facility] Physical Therapy Start: 05-31-2020 End: 05-31-2020 Subsequent hospital visit by physician Tomás Lynch [facility] Laboratory Comment on above: Screening for cervic al cancer Start: 10-01-2019 End: 10-01-2019 Subsequent hospital visit by physician Tomás Lynch [facility] Laboratory Comment on above: Acute vaginitis Start: 05-12-2019 End: 05-12-2019 Subsequent hospital visit by physician Tomás Lynch [facility] Laboratory Comment on above: Acute vaginitis Procedures Date Procedure Procedure Detail Performing Clinician Start: 06-03-2024 Ecg routine ecg w/le ast 12 lds w/i&r Ana Paula Milligan [employer]IC[employer] - [employer] BLOCKER Work Phone: Start: 05-22-2024 Ecg routine ecg w/le ast 12 lds w/i&r Sujata Adrian MD Work Phone: Start: 05-22-2024 Basic metabolic pane l calcium total A Adilene Adrian MD Work Phone: Start: 04-08-2024 Mri lower extrem oth /thn jt w/o contr matrl Judah Rios DPM Work Phone: Start: 11-29-2023 Screening mammograph y bi 2-view breast inc cad Jazzmine Burnseliezer Palmer [employer] SERVICER - CNM Work Phone: Start: 10-08-2023 Microscopic observat ion [Identifier] in Cervix by Cyto stain [facility] 01 Start: 11-02-2022 Screening mammograph y bi 2-view breast inc cad Jazzmine Susanne Palmer [employer] AND SERVICER - CNM Work Phone: Start: 09-12-2022 Microscopic observat ion [Identifier] in Cervix by Cyto stain [facility] Start: 07-16-2022 Us soft tissue head & neck real time imge hayde Milligan [employer] AND SERVICER - CAP BLOCKER Work Phone: Start: 09-05-2021 Microscopic observat ion [Identifier] in Cervix by Cyto stain Mac Roper PT Start: 05-12-2019 Iadna tiburcio specie s direct probe tq Jazzmine Burnseliezer Palmer Work Phone: Plan of Treatment Date Care Activity Detail Author Start: 02-11-2029 Lipid panel Lipids [facility] Start: 11-05-2028 DTaP/Tdap/Td vaccine (3 - Td or Tdap) DTaP/Tdap/Td vaccine (3 - Td or Tdap) [facility] Start: 11-05-2028 DTaP/Tdap/Td vaccine (3 - Td) DTaP/Tdap/Td vaccine (3 - Td) [place], [place] Start: 02-02-2028 Lipid panel Lipids [facility] Start: 02-13-2027 Diabetes screen Diabetes screen [facility] Start: 12-29-2026 Lipid panel Lipids [facility] Start: 10-07-2026 Screening for malign ant neoplasm of cervix [facility] Start: 2026 Shingles Vaccine (1 of 2) Shingles Vaccine (1 of 2) [facility] [place] Start: 11-28-2025 Screening for malign ant neoplasm of breast Breast cancer screen [facility] Start: 09-12-2025 Screening for malign ant neoplasm of cervix [facility] Start: 02-13-2025 COVID-19 Vaccine (#1) COVID-19 Vacci ne (#1) [facility] Comment on above: Postponed from 02/14 (Patient Refused) Start: 02-13-2025 COVID-19 Vaccine ( season) COVID-19 Vaccine () [facility] Comment on above: Postponed from 04/05 (Patient Refused) Start: 09-05-2024 Screening for malign ant neoplasm of cervix [facility] Start: 08-31-2024 End: 08-31-2024 Patient encounter procedure 08/31/2024 3:45 PM EST Office Visit [facility] [address] [place] [address] [place] [address] [place] [address] f/u remove saline implants bilaterally and placement of new saline implants with gonzales pattern mastopexy and partial capsulectomy sx on 06/08/2024 [facility] Comment on above: f/u remove saline im plants bilaterally and placement of new saline implants with gonzales pattern mastopexy and partial capsulectomy sx on 06/08/2024 Start: 08-16-2024 Depression Screen Depression Screen [facility] Start: 08-14-2024 End: 08-14-2024 Patient encounter procedure 08/14/2024 8:00 AM EST Office Visit [facility] [address] [place] [address] Ana Paula Milligan, [employer] SERVICER - CAP BLOCKER [address] [place] [address] 6 month check [facility] Comment on above: 6 month check Start: 08-02-2024 Hepatitis B vaccine (1 of 3 - 19+ 3-dose series) Hepatitis B vaccine (1 of 3 - 19+ 3-dose series) [facility] Comment on above: Postponed from 08/17 (Patient Refused) Start: 08-02-2024 Hepatitis B vaccine (1 of 3 - 3-dose series) Hepatitis B vaccine (1 of 3 - 3-dose series) [facility] Comment on above: Postponed from 08/17 (Patient Refused) Start: 08-02-2024 Hepatitis C screening Hepatitis C sc reen [facility] Comment on above: Postponed from 08/17 (Patient Refused) Start: 08-02-2024 HIV screening HIV screen [facility] Comment on above: Postponed from 08/17 (Patient Refused) Start: 08-02-2024 Influenza vaccination B ON [facility] Comment on above: Postponed from 03/05 (Patient Refused) Postponed from 03/05 (Patient Refused) Start: 07-22-2024 End: 07-22-2024 Patient encounter procedure 07/22/2024 3:45 PM EST Appointment [facility] ([facility]) [address] [place] [address] Allergy [facility] Comment on above: Allergy Start: 07-16-2024 End: 07-16-2024 Patient encounter procedure 07/16/2024 1:15 PM EST Appointment [facility] ([facility]) [address] [place], [place] [phone] Allergy [facility] ([facility] Comment on above: Allergy Start: 07-15-2024 End: 07-15-2024 Patient encounter procedure 07/15/2024 8:30 AM EST Office Visit [facility] [address] [place], [place] [id number] [place] [address] [place], [place] [id number] f/u remove saline implants bilaterally and placement of new saline implants with gonzales pattern mastopexy and partial capsulectomy sx on 06/08/2024 [facility] Comment on above: f/u remove saline im plants bilaterally and placement of new saline implants with gonzales pattern mastopexy and partial capsulectomy sx on 06/08/2024 Start: 07-09-2024 End: 07-09-2024 Patient encounter procedure 07/09/2024 1:15 PM EST Appointment [facility] ([facility]) [address] [place] [address] [phone] Allergy [facility] ([facility] Comment on above: Allergy Start: 07-06-2024 End: 07-06-2024 Patient encounter procedure 07/06/2024 4:00 PM EST Office Visit [facility] [address] [place] [address] [place] [address] [place], [place] [phone] f/u remove saline implants bilaterally and placement of new saline implants with gonzales pattern mastopexy and partial capsulectomy sx on 06/08/2024 [facility] Comment on above: f/u remove saline im plants bilaterally and placement of new saline implants with gonzales pattern mastopexy and partial capsulectomy sx on 06/08/2024 Start: 07-01-2024 End: 07-01-2024 Patient encounter procedure 07/01/2024 3:10 PM EST Appointment [facility] ([facility]) [address] [place] [address] [phone] Allergy [facility] ([facility] Comment on above: Allergy Start: 06-25-2024 End: 06-25-2024 Patient encounter procedure 06/25/2024 1:15 PM EST Appointment [facility] ([facility]) [address] [place] [phone] Allergy [facility] ([facility]) Comment on above: Allergy Start: 06-18-2024 End: 06-18-2024 Patient encounter procedure 06/18/2024 1:15 PM EST Appointment [facility] ([facility]) [address] [place] [phone] Allergy [facility] ([facility]) Comment on above: Allergy Start: 06-15-2024 End: 06-15-2024 Patient encounter procedure 06/15/2024 4:00 PM EST Office Visit [facility] [address] [place] [address] [place] [address] [place] [address] f/u remove saline implants bilaterally and placement of new saline implants with gonzales pattern mastopexy and partial capsulectomy sx on 06/08/2024 [facility] Comment on above: f/u remove saline im plants bilaterally and placement of new saline implants with gonzales pattern mastopexy and partial capsulectomy sx on 06/08/2024 Start: 06-08-2024 End: 06-08-2024 Admission to same day surgery center 06/08/2024 8:30 AM EST - 06/08/2024 11:30 AM EST [place] [facility] [address] [place] [address] [place] [address] [address] [facility] [address] [place] [address] COSMETC REMOVAL BILATERAL OLD SALINE IMPLANTS AND REPLACEMENT WITH BILATERAL NEW SALINE IMPLANTS WITH GONZALES PATTERN MASTOPEXY AND PARTIAL CAPSULECTOMY [facility] [place] Comment on above: COSMETC REMOVAL BILA TERAL OLD SALINE IMPLANTS AND REPLACEMENT WITH BILATERAL NEW SALINE IMPLANTS WITH GONZALES PATTERN MASTOPEXY AND PARTIAL CAPSULECTOMY Start: 06-08-2024 End: 06-08-2024 Anesthesia consultation 06/08/2024 8:30 AM EST Anesthesia [place] [facility] [address] [facility] [place] [address] Jacob Prasad MD [address] [place] [address] [facility] [place] Start: 06-08-2024 End: 06-08-2024 Mammaplasty augmentation w/prosthetic implant [facility] Start: 06-08-2024 Subsequent hospital visit by physician 06/08/2024 8:30 AM EST Hospital Encounter [facility] [place] [address] [place] [address] [place] [address] [place] [address] [facility] [place] Start: 05-27-2024 End: 05-27-2024 Patient encounter procedure 05/27/2024 3:45 PM EDT Appointment [facility] Pre-Admit Testing [address] [place] [address] COSMETIC PAT FOR DOS 06/08 @ [facility] OR - DR ADRIAN [facility] Pre-Admit Testing Comment on above: COSMETIC PAT FOR DOS 06/08 @ [facility] OR - DR ADRIAN Start: 05-26-2024 End: 05-26-2024 Patient encounter procedure 05/26/2024 1:15 PM EDT Appointment [facility] ([facility]) [address] [place] [phone] Allergy [facility] ([facility]) Comment on above: Allergy Start: 05-17-2024 Screening for malign ant neoplasm of colon [facility] Start: 04-21-2024 End: 04-21-2024 Patient encounter procedure 04/21/2024 1:15 PM EDT Appointment [facility] ([facility]) [address] [place] [phone] Allergy [facility] ([facility]) Comment on above: Allergy Start: 04-08-2024 End: 04-08-2024 Patient encounter procedure 04/08/2024 8:30 AM EDT Appointment [facility] [address] [place] [address] Judah Rios, SUSI [address] [place] [address] [place] [address] MEDIA/PT [facility] Comment on above: MEDIA/PT Start: 04-07-2024 End: 04-07-2024 Patient encounter procedure 04/07/2024 1:15 PM EDT Appointment [facility] ([facility]) [address] [place], [place] [phone] Allergy [facility] ([facility]) Comment on above: Allergy Start: 04-05-2024 COVID-19 Vaccine () COVID-19 Vaccine () [facility] Start: 03-24-2024 End: 03-24-2024 Patient encounter procedure 03/24/2024 1:15 PM EDT Appointment [facility] ([facility]) [address] [place], [place] [phone] Allergy [facility] ([facility]) Comment on above: Allergy Start: 03-17-2024 End: 03-17-2024 Patient encounter procedure 03/17/2024 1:15 PM EDT Appointment [facility] ([facility]) [address] [place], [place] [phone] Allergy [facility] ([facility]) Comment on above: Allergy Start: 03-05-2024 Influenza vaccination Flu vaccine (# 1) [facility] Start: 02-02-2024 COVID-19 Vaccine (#1) COVID-19 Vacci ne (#1) [facility] Comment on above: Postponed from 02/14 (Patient Refused) Start: 01-31-2024 End: 01-31-2024 Patient encounter procedure 01/31/2024 8:20 AM EDT Office Visit [facility] [address] [place] [id number] Ana Paula Milligan, [employer] SERVICER - CAP BLOCKER [address] [place] [phone] 6 month [facility] Comment on above: 6 month Start: 12-17-2023 End: 12-17-2023 Patient encounter procedure 12/17/2023 1:15 PM EDT Appointment [facility] ([facility]) [address] [place], [place] [phone] Allergy injections. Dr Regan [facility] ([facility]) Comment on above: Allergy injections. Dr Malave Start: 12-11-2023 End: 12-11-2023 Patient encounter procedure 12/11/2023 2:30 PM EDT Initial consult [facility] [address] [place] [address] f/u cosmetic consult implant removal and replace (no fee) [facility] Comment on above: f/u cosmetic consult implant removal and replace (no fee) Start: 11-29-2023 End: 11-29-2023 Patient encounter procedure 11/29/2023 8:00 AM EDT Appointment [facility] [address] [place] [address] Jazzmine Palmer, [employer] SERVICER - CNM [address] [place] [address] Dr [address] [place] [address] EPIC sched w/ patient [facility] Comment on above: EPIC sched w/ patien t Start: 11-27-2023 End: 11-27-2023 Patient encounter procedure 11/27/2023 3:00 PM EDT Initial consult [facility] [address] [place] [address] f/u cosmetic consult implant removal and replace (no fee) [facility] Comment on above: f/u cosmetic consult implant removal and replace (no fee) Start: 10-22-2023 End: 10-22-2023 Patient encounter procedure 10/22/2023 1:15 PM EDT Appointment [facility] ([facility] [address] [place], [place] [phone] Allergy injections. Dr Regan [facility] Comment on above: Allergy injections. Dr Malave Start: 10-08-2023 End: 10-08-2023 Patient encounter procedure 10/08/2023 2:45 PM EST Office Visit [facility] Part of [address] [place] [address] Jazzmine Palmer, [employer]OK[employer]OR AND SERVICER - [address] [place] [phone] yearly [facility] Part [facility] Comment on above: yearly Start: 09-24-2023 End: 09-24-2023 Patient encounter procedure 09/24/2023 1:15 PM EST Appointment [facility] ([facility] [address] [place], [place] [phone] Allergy injections. Dr Malave [facility] ([facility] Comment on above: Allergy injections. Dr Malave Start: 09-23-2023 End: 09-23-2023 Patient encounter procedure 09/23/2023 8:00 AM EST Office Visit [facility] Part of [place] [phone] [place] [address] [place] [phone] genetic eval [facility] Comment on above: genetic eval Start: 07-31-2023 Depression Screen Depression Screen [facility] Start: 07-06-2023 Depression Screen Depression Screen [facility] Start: 05-29-2023 Influenza vaccination [facility] Comment on above: Postponed from 03/05 (Patient Refused) Postponed from 03/05 (Patient Refused) Start: 03-19-2023 Depression Screen Depression Screen [facility] Start: 01-04-2023 End: 01-04-2023 Patient encounter procedure 01/04/2023 Office Visit Primary Care Ana Paula Milligan, [employer]OR AND SERVICER - CAP BLOCKER [address] [place] [address] [facility] [place] Start: 12-29-2022 COVID-19 Vaccine (#1) COVID-19 Vacci ne (#1) [facility] Comment on above: Postponed from 02/14 (Not Indicated) Start: 12-29-2022 Hepatitis C screening Hepatitis C sc reen [facility] Comment on above: Postponed from 08/17 (Patient Refused) Start: 12-29-2022 HIV screening HIV screen [facility] Comment on above: Postponed from 08/17 (Patient Refused) Start: 12-05-2022 End: 12-05-2022 Patient encounter procedure 12/05/2022 Office Visit General Surgery Cierra Orta I, DO [address] [facility] [address] [facility] [address] [place] [phone] [facility] GENERAL SURGERY [facility] Start: 09-12-2022 End: 09-12-2022 Patient encounter procedure 09/12/2022 Office Visit Obstetrics and Gynecology Jazzmine Palmer, BRITTANY - CNM [address] [facility] [address] [place] [address] [facility] Start: 08-14-2022 End: 08-14-2022 Patient encounter procedure 08/14/2022 Office Visit Obstetrics and Gynecology Iva Osborne, DO [address] [place] [address] [facility] Start: 08-14-2022 End: 08-14-2022 Professional / ancillary services management 08/14/2022 Ancillary Procedure Obstetrics and Gynecology [facility] Start: 07-06-2022 End: 07-06-2022 Patient encounter procedure 07/06/2022 Office Visit Primary Care Ana Paula Milligan, [employer] E[employer]OR AND SERVICER - CAP BLOCKER [address] [place] [address] [facility] [place] Start: 07-03-2022 Cervical cancer screen Cervical canc er screen [facility] [place] Start: 07-03-2022 Screening for malign ant neoplasm of cervix ARTURO DEZ [facility] Start: 06-05-2022 End: 06-05-2022 Patient encounter procedure 06/05/2022 Initial consult Obstetrics and Gynecology Iva Osborne, DO [address] [place] [address] [facility] Start: 06-01-2022 End: 06-01-2022 Patient encounter procedure 06/01/2022 Appointment Physical Therapy Aakash Charles BENZ[employer] WORK[employer] [facility] Start: 05-30-2022 End: 05-30-2022 Patient encounter procedure 05/30/2022 Appointment Physical Therapy Aakash Charles, [employer]ENZ[employer] WORK[employer] [facility] Start: 05-28-2022 End: 05-28-2022 Patient encounter procedure 05/28/2022 Appointment Physical Therapy Aakash Charles [employer] [facility] Start: 05-25-2022 End: 05-25-2022 Patient encounter procedure 05/25/2022 Appointment Physical Therapy Wicho Simmons, PT [facility] Start: 05-24-2022 End: 05-24-2022 Patient encounter procedure [facility] Start: 05-23-2022 End: 05-23-2022 Patient encounter procedure 05/23/2022 Appointment Physical Therapy Mac Roper, PT [facility] Start: 05-18-2022 End: 05-18-2022 Patient encounter procedure 05/18/2022 Appointment Physical Therapy Aakash Charles [employer] Start: 05-16-2022 End: 05-16-2022 Patient encounter procedure 05/16/2022 Appointment Physical Therapy Mac Roper PT [facility] Start: 05-14-2022 End: 05-14-2022 Patient encounter procedure 05/14/2022 Appointment Physical Therapy Aakash Charles [employer] [employer] Start: 05-11-2022 End: 05-11-2022 Patient encounter procedure 05/11/2022 Appointment Physical Therapy Aakash Charles [facility] Start: 03-05-2022 Influenza vaccination Flu vaccine (# 1) [facility] Start: 2021 Screening for malign ant neoplasm of colon [facility] Start: 06-07-2021 End: 06-07-2021 Office Visit 06/07/2021 Office Visit Obstetrics and Gynecology Jazzmine Palmer, STOKER E[employer]OR AND SERVICER - CN [address] [facility] [address] [place], [place] [phone] [facility] Start: 06-15-2020 End: 06-15-2020 Ancillary Procedure [facility] Start: 05-12-2020 Diabetes screen Diabetes screen [place], [place] Comment on above: Postponed from 08/17 (Not Indicated) Start: 05-12-2020 HIV screen HIV screen [place], [place] Comment on above: Postponed from 08/17 (Patient Refused) Start: 05-12-2020 Influenza vaccination Flu vaccine (# 1) [place], [place] Comment on above: Postponed from 04/05 (Patient Refused) Start: 05-12-2020 Lipid screen Lipid screen [place], [place] Comment on above: Postponed from 08/17 (Not Indicated) Start: 04-05-2020 Influenza vaccination Flu vaccine (# 1) [place] Start: 10-07-2019 End: 10-07-2019 Office Visit 10/07/2019 Office Visit Obstetrics and Gynecology Jazzmine Palmer, STOKER ERECTOR AND SERVICER - CN [address] [facility] [address] [place] [address] [facility] Start: 2016 Diabetes screen Diabetes screen [place], [place] Start: 2016 Lipid panel Lipid screen [place], [place] Start: 1991 HIV screening HIV screen [place], [place] End: 10-01-2019 C.trachomatis N.gonorrhoeae DNA C.trachomatis N.gonorrhoeae DNA Microbiology Routine Acute vaginitis 1 Occurrences starting 10/01/2019 until 10/01/2019 [place] Comment on above: 1 Occurrences starti ng 10/01/2019 until 10/01/2019 C.trachomatis N.gonorrhoeae DNA C.trachomatis N.gonorrhoeae DNA Microbiology Routine Acute vaginitis 10/01/2019 12:11 PM EST [place] End: 10-01-2019 Culture, Genital Culture, Genital Microbiology Routine Acute vaginitis 1 Occurrences starting 10/01/2019 until 10/01/2019 [facility] [place] Comment on above: 1 Occurrences starti ng 10/01/2019 until 10/01/2019 Culture, Genital Culture, Genita l Microbiology Routine Acute vaginitis 10/01/2019 12:10 PM EST [facility] [place] End: 09-12-2022 Culture, Genital [employer] Phone: Comment on above: 1 Occurrences starti ng 09/12/2022 until 09/12/2022 End: 05-31-2020 Cytopathology procedure, preparation of smear, genital source [facility] Routine Screening for cervical cancer 1 Occurrences starting 05/31/2020 until 05/31/2020 [place] Comment on above: 1 Occurrences starti ng 05/31/2020 until 05/31/2020 End: 09-12-2022 Cytopathology procedure, preparation of smear, genital source [facility] Routine Screening for malignant neoplasm of cervix 1 Occurrences starting 09/12/2022 until 09/12/2022 [employer] Phone: Comment on above: 1 Occurrences starti ng 09/12/2022 until 09/12/2022 EKG 12 Lead EKG 12 Lead ECG Routine 05/22/2024 2:37 PM EDT [employer] Phone: EKG 12 lead EKG 12 lead ECG Routine Abnormal ECG 06/03/2024 3:24 PM EDT [employer] End: 05-12-2019 Fungus Culture Fungus Culture Microbiology Routine Acute vaginitis 1 Occurrences starting 05/12/2019 until 05/12/2019 [facility] Comment on above: 1 Occurrences starti ng 05/12/2019 until 05/12/2019 Fungus Culture Fungus Culture Microbiology Routine Acute vaginitis 05/12/2019 6:14 PM EDT [facility] [place] Oxygen therapy [[facility] Data Set] Initiate Oxygen Therapy Protocol Respiratory Care Routine As Needed until discontinued starting 06/08/2024 [employer] Phone: Comment on above: As Needed until disc ontinued starting 06/08/2024 End: 06-08-2024 , urine POCT , urine POCT Point of Care Testing Routine One Time for 1 Occurrences starting 06/08/2024 until 06/08/2024 [facility] Comment on above: One Time for 1 Occur rences starting 06/08/2024 until 06/08/2024 End: 10-01-2019 VAGINITIS DNA PROBE VAGINITIS DNA PROBE Microbiology Routine Acute vaginitis 1 Occurrences starting 10/01/2019 until 10/01/2019 [place] Comment on above: 1 Occurrences starti ng 10/01/2019 until 10/01/2019 VAGINITIS DNA PROBE VAGINITIS DN A PROBE Microbiology Routine Acute vaginitis 10/01/2019 12:10 PM EST [place] Immunizations Immunization Date Immunization Notes Care Provider Romy larios 11-05-2018 tetanus toxoid, redu kirt diphtheria toxoid, and acellular pertussis vaccine, adsorbed Shaela Judson PT [facility] Work Phone: 02-26-2018 tetanus toxoid, redu kirt diphtheria toxoid, and acellular pertussis vaccine, adsorbed Shaela Judson PT [facility] [email or web address] Work Phone: 12-20-2011 pneumococcal polysaccharide vaccine, 23 valent Shaela Judson PT [facility] [employer] Phone: Payers Date Payer Category Payer Unknown [id number] 2021 Unknown 2020 Unknown [employer] M ELVIE [place] - EXCHANGE [id number] 2020-Present [phone] [address] [place] [address] [id number] 2017 Unknown [employer] Lukas BERMEO [place] [address] xxxxxxxxxxxx 2017-Present [phone] [address] [place] [address] xxxxxxxxxxxx [id number] 1976 Unknown [id number] 2.16.840.1.194842.3.579.2.196 1976 Unknown [id number] 2.16.840.1.183015.3.579.2.196 1976 Unknown [id number] 2.16.840.1.923418.3.579.2.196 1976 Unknown [id number] 2.16.840.1.547961.3.579.2.196 1976 Unknown [id number] 2.16.840.1.160862.3.579.2.196 1976 Unknown [id number] 2.16.840.1.251564.3.579.2.196 1976 Unknown [id number] 2.16.840.1.856983.3.579.2.196 1976 Unknown [id number] 2.16.840.1.857751.3.579.2.196 1976 Unknown [id number] 2.16.840.1.697376.3.579.2.175 1976 Unknown [id number] 2.16.840.1.160960.3.579.2.173 1976 Unknown [id number] 2.16.840.1.187014.3.579.2.173 1976 Unknown [id number] 2.16.840.1.134499.3.579.2.173 1976 Unknown [id number] 2.16.840.1.750332.3.579.2.173 1976 Unknown [id number] 2.16.840.1.481524.3.579.2.173 1976 Unknown [id number] 2.16.840.1.906488.3.579.2.173 1976 Unknown [id number] 2.16.840.1.710810.3.579.2.173 1976 Unknown [id number] 2.16.840.1.861935.3.579.2.173 1976 Unknown [id number] 2.16.840.1.496372.3.579.2.173 1976 Unknown [id number] 2.16.840.1.604969.3.579.2.173 1976 Unknown [id number] 2.16.840.1.832140.3.579.2.173 1976 Unknown [id number] 2.16.840.1.674601.3.579.2.173 1976 Unknown [id number] 2.16.840.1.871141.3.579.2.173 1976 Unknown [id number] 2.16.840.1.586780.3.579.2.173 1976 Unknown [id number] 2.16.840.1.631668.3.579.2.173 1976 Unknown [id number] 2.16.840.1.121066.3.579.2.173 1976 Unknown [id number] 2.16.840.1.551919.3.579.2.173 1976 Unknown [id number] 2.16.840.1.674480.3.579.2.173 1976 Unknown [id number] 2.16.840.1.378069.3.579.2.173 1976 Unknown [id number] 2.16.840.1.467383.3.579.2.173 1976 Unknown [id number] 2.16.840.1.147062.3.579.2.173 1976 Unknown [id number] 2.16.840.1.353435.3.579.2.173 1976 Unknown [id number] 2.16.840.1.150601.3.579.2.173 1976 Unknown [id number] 2.16.840.1.436436.3.579.2.173 1976 Unknown [id number] 2.16.840.1.560234.3.579.2.173 1976 Unknown [id number] 2.16.840.1.390026.3.579.2.173 1976 Unknown [id number] 2.16.840.1.018258.3.579.2.173 1976 Unknown [id number] 2.16.840.1.555287.3.579.2.173 1976 Unknown [id number] 2.16.840.1.984704.3.579.2.173 Social History Date Type Detail Facility Start: 10-01-2019 End: 02-20-2022 Tobacco smoking status NHIS Never smoker [place] Start: 10-01-2019 End: 02-17-2024 Alcohol intake Current drinker of alcohol (finding) [place] Start: 04-22-2018 Alcohol Comment occasionally [place], [place] Sex Assigned At Not on file [place] Start: 05-31-2020 End: 02-20-2022 Tobacco use and exposure Never used [place], [place] Start: 1975 Sex Assigned At Female [place] Start: 05-12-2019 End: 06-08-2024 Alcohol intake Yes [facility] Start: 08-16-2023 End: 06-08-2024 History of Social function [facility] [facility] How hard is it for y ou to pay for the very basics like food, housing, medical care, and heating Not hard at all [facility] (I/We) worried wheth er (my/our) food would run out before (I/we) got money to buy more. Never true [facility] At any time in the p ast 12 months, were you homeless or living in care home [including now]? No [facility] Start: 12-22-2019 Gender identity Identifies as female gender (finding) [facility] Start: 12-22-2019 Sexual orientation Heterosexual (angélica lane) [facility] Start: 06-02-2024 End: 07-15-2024 Alcoholic beverage intake Ex-drinker (finding) [facility] Medical Equipment Procedure Code Equipment Code Equipment Origin al Text Equipment Identifier Dates Implant Brst 300 330cc P41cm [id number] Nacl Styl 68mp Smooth - [id number] Start: 06-08-2024 Comment on above: Description: FILLED WITH 310CC 0.9% SODIUM CHLORIDE Implant Brst 300 330cc P41cm [id number] Nacl Styl 68mp Smooth - [id number] Start: 06-08-2024 Comment on above: Description: FILLED WITH 310CC 0.9% SODIUM CHLORIDE Clinical Notes 05-09-2022 to 07-16-2024 Discharge InstructionsRashmi Charles RN - 07/16/2024 1:15 PM ESTDischarge Yoko Burdick RN - 07/09/2024 1:15 PM ESTDischarge Renae Escudero RN - 07/01/2024 3:10 PM EST Note Date & Type Note Facility 07-16-2024 Hospital Discharg e instructions Rashmi Charles RN - 07/16/2024 1:32 PM EST Verbally reviewed discharge instructions for care and follow up. Previous print out of these instructions were given with prior treatment.Patient verbalized understanding of these instructions. Today's copy offered and declined. documented in this encounter [facility] 07-16-2024 History of Presen t illness Narrative Allergy injection flow sheet Identification of own vial of serum Delayed reaction URI with or without wheezing Time of injection [place] No [id number] Injection Schedule Concentration Dose Location Vial Expiration Date Reviewed Red#A 0.3ml left yes Red#B 0.3ml right Injection given by: Yasmin CHOI Injection site checked upon discharge by: Yasmin CHOI Comments: no local Reminder: document all injections in the allergy binder. documented in this encounter [facility] 07-09-2024 [facility] Discharg e instructions Ykoo Young RN - 07/09/2024 1:43 PM EST Verbally reviewed discharge instructions for care and follow up. Previous print out of these instructions were given with prior treatment.Patient verbalized understanding of these instructions. Today's copy offered and declined. documented in this encounter [facility] 07-09-2024 History of Presen t illness Narrative Allergy injection flow sheet Identification of own vial of serum Delayed reaction URI with or without wheezing Time of injection Discharge time Yes No No [id number] Injection Schedule Concentration Dose Location Vial Expiration Date Reviewed Red A 0.25ml Left arm yes Red B 0.25ml Right arm yes Injection given by: TONY CHOI Injection site checked upon discharge by: TONY CHOI Comments: no local Reminder: document all injections in the allergy binder. documented in this encounter [facility] 07-01-2024 [facility] Discharg e instructions Renae Cisneros RN - 07/01/2024 3:31 PM EST Verbally reviewed discharge instructions for care and follow up. Previous print out of these instructions were given with prior treatment.Patient verbalized understanding of these instructions. Today's copy offered and declined. documented in this encounter [facility] 07-01-2024 History of Presen t illness Narrative Allergy injection flow sheet Identification of own vial of serum Delayed reaction URI with or without wheezing Time of injection Discharge time Yes No No [id number] Injection Schedule Concentration Dose Location Vial Expiration Date Reviewed Red vial A 0.2ml LA yes Red vial B 0.2 ml RA yes Injection given by: Renae Cisneros RN Injection site checked upon discharge by: Renae Cisneros RN Comments: no local Reminder: document all injections in the allergy binder. documented in this encounter [facility] 06-25-2024 [facility] Discharg e instructions Yoko Young RN - 06/25/2024 2:38 PM EST Verbally reviewed discharge instructions for care and follow up. Previous print out of these instructions were given with prior treatment.Patient verbalized understanding of these instructions. Today's copy offered and declined. documented in this encounter [facility] 06-25-2024 History of Presen t illness Narrative Allergy injection flow sheet Identification of own vial of serum Delayed reaction URI with or without wheezing Time of injection Discharge time Yes No No [id number] Injection Schedule Concentration Dose Location Vial Expiration Date Reviewed Red A 0.15ml Left arm yes Red B 0.15ml Right arm yes Injection given by: TONY CHOI Injection site checked upon discharge by: TONY CHOI Comments: small local (LEFT ARM) Reminder: document all injections in the allergy binder. documented in this encounter [facility] 06-18-2024 [facility] Discharg e instructions Rashmi Charles RN - 06/18/2024 1:33 PM EST Verbally reviewed discharge instructions for care and follow up. Previous print out of these instructions were given with prior treatment.Patient verbalized understanding of these instructions. Today's copy offered and declined. documented in this encounter [facility] 06-18-2024 History of Presen t illness Narrative Allergy injection flow sheet Identification of own vial of serum Delayed reaction URI with or without wheezing Time of injection Discharge time Yes No No [id number] Injection Schedule Concentration Dose Location Vial Expiration Date Reviewed Red#A 0.1ml left yes Red#B 0.1ml right Injection given by: Yasmin CHOI Injection site checked upon discharge by: Yasmin CHOI Comments: no local Reminder: document all injections in the allergy binder. documented in this encounter [facility] 06-03-2024 History of Presen t illness Narrative Pt called into PAT stating that her PCP ordered a repeat EKG today due to abnormal EKG documented in this encounter [facility] 06-02-2024 Hospital Discharg Noris Nunez RN - 06/02/2024 8:24 AM EDT BREAST SURGERY Activity You have had anesthesia today Do not drive, operate heavy equipment, consume alcoholic beverages, or make any important decisions for 24 hours. NO driving for 7 days If you are taking pain medication: Do not drive or consume alcohol. Take your time changing positions today. You may feel light headed or dizzy if you move too quickly. Continue your home medications as ordered by your physician. Avoid aspirin and over the counter medications (including vitamins, and herbal supplements) for 7 days. DO NOT smoke. Activity should be minimal for the first 24 hours. DO NOT use your arms in strenuous activity as vacuuming, pushing yourself up in bed and pushing yourself up from a sitting position for approximately 1 week. NO HEAVY LIFTING (10 LBS. OR MORE) FOR 3-4 WEEKS. You may take gentle walks within a few days. Do not return to aerobic exercise for 3 weeks. No contact sports, gym or heavy work for 6 weeks. Use Incentive Spirometer as directed, at least 10 times an hour, when awake (if provided) Sleep with the head of the bed elevated or sleep in a recliner. During the first week, attempt to sleep on your back instead of on your side. We want your implants to stay in a perfect position during the initial healing process. DO NOT sleep on your belly. Wear your bra or garment continuously day and night for the first week. Then you may remove it to bathe or wash the bra. To wash the bra: hand wash, then air dry. DO NOT place in the dryer, it will shrink. We recommend sleeping in a bra at all times. If you have a drain, empty and record drainage from drain on form provided and bring the form with you to your follow up appointment Diet You can eat your normal diet when you feel well. You should start off with bland foods like chicken soup, toast, or yogurt. Then advance as tolerated. Drink plenty of fluids (unless your doctor tells you not to). Your urine should be very lightly colored without a strong odor. Medicines If the doctor gave you a prescription medicine for pain, take it as needed as prescribed. You will need to take an antibiotic for any dental procedures in the future. Call the office to have antibiotics prescribed. Care of the cut (incision) Do not change dressing You may reinforce dressing with gauze if needed Dr. Adrian will remove steri-strips placed over your incision line within 7-10 days after surgery. If they fall off prior to this time, do not be concerned. You may cover the area with a gauze bandage if it weeps or rubs against clothing. Keep the area clean and dry. Call your doctor now or seek immediate medical care if: You have pain that does not get better after you take pain medicine. You have a fever over 101 F. You have chills Excessive swelling or bleeding( especially if you notice a difference in only one breast) You have signs of infection, such as: Increased pain, swelling, warmth, or redness. Red streaks leading from the incision. Pus draining from the incision. If you do not urinate within 8 hours after surgery The following attachments cannot be sent through Care Everywhere.scopolamine transdermal ([place]ian)documented in this encounter [facility] 05-21-2024 Hospital Discharg e Rashmi Mathis RN - 05/21/2024 1:27 PM EDT Verbally reviewed discharge instructions for care and follow up. Previous print out of these instructions were given with prior treatment.Patient verbalized understanding of these instructions. Today's copy offered and declined. documented in this encounter [facility] 05-21-2024 History of Presen t illness Narrative Allergy injection flow sheet Identification of own vial of serum Delayed reaction URI with or without wheezing Time of injection Discharge time Yes No No 1320 1240 Injection Schedule Concentration Dose Location Vial Expiration Date Reviewed Yellow#A 0.4ml left yes Yellow#B 0.4ml right Injection given by: Yasmin CHOI Injection site checked upon discharge by: Yasmin CHOI Comments: no local Reminder: document all injections in the allergy binder. documented in this encounter [facility] 04-07-2024 Hospital Discharg e instructions Yoko Young RN - 04/07/2024 2:58 PM EDT Verbally reviewed discharge instructions for care and follow up. Previous print out of these instructions were given with prior treatment.Patient verbalized understanding of these instructions. Today's copy offered and declined. documented in this encounter [facility] 04-07-2024 History of Presen t illness Narrative Allergy injection flow sheet Identification of own vial of serum Delayed reaction URI with or without wheezing Time of injection Discharge time Yes No No 1325 9385 Injection Schedule Concentration Dose Location Vial Expiration Date Reviewed BLUE A 0.4ML LEFT ARM YES BLUE B 0.4ML RIGHT ARM YES Injection given by: Stephenie YOUNG RN Injection site checked upon discharge by: Stephenie YOUNG RN Comments: no local Reminder: document all injections in the allergy binder. documented in this encounter [facility] 03-31-2024 [facility] Discharg e instructions Rashmi Charles RN - 03/31/2024 1:37 PM EDT Verbally reviewed discharge instructions for care and follow up. Previous print out of these instructions were given with prior treatment.Patient verbalized understanding of these instructions. Today's copy offered and declined. documented in this encounter [facility] 03-31-2024 History of Presen t illness Narrative Allergy injection flow sheet Identification of own vial of serum Delayed reaction URI with or without wheezing Time of injection Discharge time Yes No No 8259 1333 Injection Schedule Concentration Dose Location Vial Expiration Date Reviewed Blue#A 0.2ml left yes Blue#B 0.2ml right Injection given by: Melvin Pate RN Injection site checked upon discharge by: Yasmin CHOI Comments: no local Reminder: document all injections in the allergy binder. documented in this encounter [facility] 03-17-2024 [facility] Discharg e instructions Rashmi Charles RN - 03/17/2024 2:07 PM EDT Verbally reviewed discharge instructions for care and follow up. Previous print out of these instructions were given with prior treatment.Patient verbalized understanding of these instructions. Today's copy offered and declined. documented in this encounter [facility] 03-17-2024 History of Presen t illness Narrative Allergy injection flow sheet Identification of own vial of serum Delayed reaction URI with or without wheezing Time of injection Discharge time Yes No No 0619 1340 Injection Schedule Concentration Dose Location Vial Expiration Date Reviewed Blue#A 0.05ML left yes Blue#B 0.05ml right Injection given by: Yasmin CHOI Injection site checked upon discharge by: Yasmin CHOI Comments: no local Reminder: document all injections in the allergy binder. documented in this encounter [facility] 03-10-2024 [facility] Discharg e instructions Rashmi Charles RN - 03/10/2024 1:23 PM EDT Verbally reviewed discharge instructions for care and follow up. Previous print out of these instructions were given with prior treatment.Patient verbalized understanding of these instructions. Today's copy offered and declined. documented in this encounter [facility] 03-10-2024 History of Presen t illness Narrative Allergy injection flow sheet Identification of own vial of serum Delayed reaction URI with or without wheezing Time of injection Discharge time Yes No No 9470 6399 Injection Schedule Concentration Dose Location Vial Expiration Date Reviewed Green#A 0.4ml left yes Green#B 0.4ml right Injection given by: Yasmin CHOI Injection site checked upon discharge by: Yasmin CHOI Comments: no local Reminder: document all injections in the allergy binder. documented in this encounter [facility] 11-21-2023 [facility] Discharg e instructions Renae Cisneros RN - 11/21/2023 2:02 PM EDT Verbally reviewed discharge instructions for care and follow up. Previous print out of these instructions were given with prior treatment.Patient verbalized understanding of these instructions. Today's copy offered and declined. documented in this encounter [facility] 11-21-2023 History of Presen t illness Narrative Allergy injection flow sheet Identification of own vial of serum Delayed reaction URI with or without wheezing Time of injection Discharge time Yes No No 8337 4144 Injection Schedule Concentration Dose Location Vial Expiration Date Reviewed Red vial A 0.5 ml LA yes Red vial B 0.5 ml RA yes Injection given by: Renae Cisneros RN Injection site checked upon discharge by: Renae Cisneros RN Comments: no local Reminder: document all injections in the allergy binder. documented in this encounter [facility] 09-24-2023 [facility] Discharg e instructions Yoko Young RN - 09/24/2023 1:21 PM EST Verbally reviewed discharge instructions for care and follow up. Previous print out of these instructions were given with prior treatment.Patient verbalized understanding of these instructions. Today's copy offered and declined. documented in this encounter [facility] 09-24-2023 History of Presen t illness Narrative Allergy injection flow sheet Identification of own vial of serum Delayed reaction URI with or without wheezing Time of injection Discharge time Yes No No 8776 3990 Injection Schedule Concentration Dose Location Vial Expiration Date Reviewed Red A 0.5ml Left arm yes Red B 0.5ml Right arm yes Injection given by: Stephenie YOUNG RN Injection site checked upon discharge by: Stephenie YOUNG RN Comments: no local Reminder: document all injections in the allergy binder. documented in this encounter [facility] 08-26-2023 [facility] Discharg e instructions Rashmi Charles RN - 08/26/2023 1:41 PM EST Verbally reviewed discharge instructions for care and follow up. Previous print out of these instructions were given with prior treatment.Patient verbalized understanding of these instructions. Today's copy offered and declined. documented in this encounter [facility] 08-26-2023 History of Presen t illness Narrative Allergy injection flow sheet Identification of own vial of serum Delayed reaction URI with or without wheezing Time of injection Discharge time Yes No No 0941 4632 Injection Schedule Concentration Dose Location Vial Expiration Date Reviewed Red#A 0.5ml left yes Red#B 0.5ml right Injection given by: Yasmin CHOI Injection site checked upon discharge by: Yasmin CHOI Comments: no local Reminder: document all injections in the allergy binder. documented in this encounter [facility] 05-23-2022 History of Presen t illness Narrative [facility] Daily Note Patient: Alec Simpson : 1975 CSN #: [id number] Referring Physician: Rasta Bain MD Date: 05/23/2022 Diagnosis: M54.16 Lumbar Radiculopathy Treatment Diagnosis: Lumbar Strain Onset Date: 03/07/22 PT Insurance Information: BCBS Total # of Visits Approved: 18 Per Physician Order Total # of Visits to Date: 7 No Show: 0 Canceled Appointment: 1 Pre-Treatment Pain: 0/10 Subjective: Pt denies pain/tightness today, just has some tenderness over L greater trochanter. Exercises: Exercise 4: B SL bridges x10 Exercise 5: piriformis stretch 10x5 Exercise 7: Scifit x8min L2.0 Exercise 8: Step stretches L HS and hip flexor [id number] Exercise 12: Monster walks fwd/retro/lateral 2 laps, YTB Exercise 13: Squats with vc's for correct form 15x Manual: Soft Tissue Mobilizaton: IDN with static placement L lumbar paraspinals 3x2 and L glut max/L piriformis and L TFL 5x3 with estim x10 min Modalities: Estim with IDN to L posterior hip to decrease pain Assessment Assessment: Progressed to squats and monster walks with YTB to progress glut strength. Noted patient compensation with squat with decreased WB'ing through L LE; able to correct with vc's and looking in a mirror. Pt able to complete SL bridges but with difficulty with L SL. Continued IDN with estim to L hip to decrease tone and pain. Will continue. Activity Tolerance Activity Tolerance: Patient tolerated treatment well Patient Education Exercise technique and progression/rationale; HEP update Pt verbalized/demonstrated good understanding: [x] Yes [] No, pt required further clarification. Post Treatment Pain: 0/10 Plan Plan Frequency: 3x/week Plan weeks: 6 weeks Goals (Total # of Visits to Date: 7) Short Term Goals Time Frame for Short Term Goals: 3 weeks Short Term Goal 1: Pt to initate HEP-MET Short Term Goal 2: Pt to not exceed 7/10 pain to improve functional capacity for ADLs-progressing Usp Goals Time Frame for [employer] Goals : 6 weeks [employer] Goal 1: Pt to be comfortable and complient with HEP [employer] Goal 2: Pt to not exceed 3/10 pain with activity to improve functional capacity. Usp Goal 3: Pt to be able to sit for 8 hour shift without significant increase in pain to improve functional endurance. Usp Goal 4: Pt to improve L Hip Strength to 5/5 to improve dynamic stability and reduce pain with ADLs. Minutes Tracking: Time In: 1639 Time Out: 1728 Minutes: 49 Timed Code Treatment Minutes: 47 Minutes Mac Roper PT, DPT Date: 05/23/2022 documented in this encounter [facility] Phone: 05-16-2022 History of Presen t illness Narrative [facility] Daily Note Patient: Alec Simpson : 1975 CSN #: [id number] Referring Physician: Rasta Bain MD Date: 05/16/2022 Diagnosis: M54.16 Lumbar Radiculopathy Treatment Diagnosis: Lumbar Strain Onset Date: 03/07/22 PT Insurance Information: BCBS Total # of Visits Approved: 18 Per Physician Order Total # of Visits to Date: 6 No Show: 0 Canceled Appointment: 1 Pre-Treatment Pain: 0/10 Subjective: Pt denies pain today but wonders if it's because she's been on a muscle relaxer for TMJ. Exercises: Exercise 1: HEP: MET, Hip/Posterior chain stretching Exercise 5: piriformis stretch 10x5 Exercise 7: Scifit x8min L1.0 Exercise 8: Step stretches L HS and hip flexor [id number] Exercise 12: sideways amb 3 laps GTB and HAB/ diags 15x ea Exercise 13: sit<>stand 10x Manual: Soft Tissue Mobilizaton: IDN with static placement L lumbar paraspinals 3x2 and L glut max/L piriformis and L TFL 5x3 with estim x10 min Modalities: Estim with IDN x10 min to L glut max, med and L piriformis to decrease pain and tone Assessment Assessment: Patient able to tolerate glut med/max strengthening with no increase in pain; mild discomfort noted with L piriformis stretch. Continued IDN with estim to L glut max, med and L piriformis to decrease tone and pain. will continue. Activity Tolerance Activity Tolerance: Patient tolerated treatment well Patient Education Exercise technique Pt verbalized/demonstrated good understanding: [x] Yes [] No, pt required further clarification. Post Treatment Pain: 0/10 Plan Plan Frequency: 3x/week Plan weeks: 6 weeks Goals (Total # of Visits to Date: 6) Short Term Goals Time Frame for Short Term Goals: 3 weeks Short Term Goal 1: Pt to initate HEP-MET Short Term Goal 2: Pt to not exceed 7/10 pain to improve functional capacity for ADLs-progressing [employer] Goals Time Frame for Usp Goals : 6 weeks [employer] Goal 1: Pt to be comfortable and complient with HEP Usp Goal 2: Pt to not exceed 3/10 pain with activity to improve functional capacity. Usp Goal 3: Pt to be able to sit for 8 hour shift without significant increase in pain to improve functional endurance. Usp Goal 4: Pt to improve L Hip Strength to 5/5 to improve dynamic stability and reduce pain with ADLs. Minutes Tracking: Time In: 1517 Time Out: 1557 Minutes: 40 Timed Code Treatment Minutes: 39 Minutes Mac Roper PT, DPT Date: 05/16/2022 [facility] this [facility] Work Phone: 05-10-2022 History of Presen t illness Narrative [facility] Daily Note Patient: Alec Simpson : 1975 CSN #: [id number] Referring Physician: Rasta Bain MD Date: 05/10/2022 Diagnosis: M54.16 Lumbar Radiculopathy Treatment Diagnosis: Lumbar Strain Onset Date: 03/07/22 PT Insurance Information: BCBS Total # of Visits Approved: 18 Per Physician Order Total # of Visits to Date: 3 No Show: 0 Canceled Appointment: 1 Pre-Treatment Pain: 10 Subjective: Patient reports about /10 soreness on the L PSIS and L greater trochanter. Was tender/sore after last session. No real difference in pain noted with estim. Exercises: Exercise 1: HEP: MET, Hip/Posterior chain stretching Exercise 4: bridges, PPT, SLR L LE x10 Exercise 5: piriformis stretch 10x5 Exercise 7: Scifit x8min L1.0 Exercise 8: Step stretches L HS and hip flexor [id number] Exercise 9: Supine L sciatic nerve glides 10x prox/distal Exercise 10: R sidelying L TFL stretch [id number] Exercise 11: MET to correct L innominate anterior rotation Manual: Soft Tissue Mobilizaton: IDN with static placement L lumbar paraspinals 3x2 and L glut max/L piriformis and L TFL 5x3 with estim x10 min Modalities: Estim with IDN to L hip in prone x10 min to decrease pain and promote healing Assessment Assessment: Focused on L hip stretching and sciatic nerve glides to improve mobility and decrease radicular pain. Patient with mild L anterior innominate rotation corrected with MET in supine. Initiated IDN with estim to L glut max, L piriformis and L TFL/IT band to decrease pain and promote healing. Will continue to progress as tolerated. Activity Tolerance Activity Tolerance: Patient tolerated treatment well Patient Education Rationale for IDN and MET, Cont stretching with HEP Pt verbalized/demonstrated good understanding: [x] Yes [] No, pt required further clarification. Post Treatment Pain: 10/12 Plan Plan Frequency: 3x/week Plan weeks: 6 weeks Goals (Total # of Visits to Date: 3) Short Term Goals Time Frame for Short Term Goals: 3 weeks Short Term Goal 1: Pt to initate HEP-MET Short Term Goal 2: Pt to not exceed 7/10 pain to improve functional capacity for ADLs-progressing Usp Goals Time Frame for Usp Goals : 6 weeks Usp Goal 1: Pt to be comfortable and complient with HEP [employer] Goal 2: Pt to not exceed 3/10 pain with activity to improve functional capacity. Usp Goal 3: Pt to be able to sit for 8 hour shift without significant increase in pain to improve functional endurance. Usp Goal 4: Pt to improve L Hip Strength to 5/5 to improve dynamic stability and reduce pain with ADLs. Minutes Tracking: Time In: 1315 Time Out: 1408 Minutes: 53 Timed Code Treatment Minutes: 50 Minutes Mac Roper, PT, DPT Date: 05/10/2022 documented in this encounter [facility] Phone: 05-09-2022 History of Presen t illness Narrative [facility] Inpatient/Observation/Outpatien t Rehabilitation Date: 05/09/2022 Patient Name: Alec Simpson [] Inpatient Acute/Observation [] Outpatient : 1975 [] Pt no showed for scheduled appointment [] Pt refused/declined therapy at this time due to: [] Pt cancelled due to: [] No Reason Given [x] Sick/ill [] Other: Patient was called into work. Therapist/Engine Room Operator will attempt to see this patient, at our earliest opportunity. Yanira Stallworth Date: 05/09/2022 documented in this encounter [facility] Phone: Evaluation note Diagnosis Thyromegaly Goiter, unspecified documented in this encounter [facility] Phone: evaluation note* Diagnosis Screening for malignant neoplasm of cervix Screening for malignant neoplasm of the cervix Acute vaginitis Vaginitis and vulvovaginitis, unspecified documented in this encounter [facility] Phone: evaluation note* Diagnosis Screening mammogram, encounter for documented in this encounter [employer] Work Phone: evaluation note* Diagnosis Screening mammogram, encounter for documented in this encounter [facility] [employer] [facility]* Diagnosis Metatarsalgia, right foot Encounter for cosmetic surgery Other plastic surgery for unacceptable cosmetic appearance documented in this encounter [facility] [employer] [facility]* Diagnosis Pre-op testing Preoperative examination, unspecified Encounter for cosmetic surgery Other plastic surgery for unacceptable cosmetic appearance documented in this encounter [facility] Access Information ManagementEvaluation note* Diagnosis Abnormal ECG Nonspecific abnormal electrocardiogram (ECG) (EKG) Encounter for cosmetic surgery Other plastic surgery for unacceptable cosmetic appearance [facility] Center Access Information ManagementEvaluation note* Diagnosis Pain following surgery or procedure- Primary Other acute postoperative pain documented in this encounter [employer] Diagnosis Acute vaginitis Vaginitis and vulvovaginitis, unspecified Diagnosis Screening for cervical cancer Screening for malignant neoplasm of the cervix Diagnosis Acute vaginitis Vaginitis and vulvovaginitis, unspecified Advance Directives Documents on File Type Date Recorded 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 Advance Directives and Living Will Power of Design Release Engineer Documents on File Type Date Recorded 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 ACP-Advance Directive ACP-Power of Design Release Engineer Healthcare Agents on File Name Relationship Healthcare Agent Relationshi p Communication José Shock Other Primary Decision Maker [address] [place] [address] (Home) Healthcare Agents on File Name Relationship Healthcare Agent Relationshi p Communication José Shock Other Primary Decision Maker [address] [place] [address] (Home) Healthcare Agents on File Name Relationship Healthcare Agent Relationshi p Communication José Shock Other Primary Decision Maker [facility] (Home) Healthcare Agents on File Name Relationship Healthcare Agent Relationshi p Communication José Shock Other Primary Decision Maker [phone] (Home) Healthcare Agents on File Name Relationship Healthcare Agent Relationshi p Communication José Carole Other Primary Decision Maker [phone] (Home) Healthcare Agents on File Name Relationship Healthcare Agent Relationshi p Communication José Shock Other Primary Decision Maker [phone] (Home) Healthcare Agents on File Name Relationship Healthcare Agent Relationshi p Communication José Shock Other Primary Decision Maker [facility] [phone] (Home) Healthcare Agents on File Name Relationship Healthcare Agent Relationshi p Communication José Shock Other Primary Decision Maker Healthcare Agents on File Name Relationship Healthcare Agent Relationshi p Communication José Shock Other Primary Decision Maker Healthcare Agents on File Name Relationship Healthcare Agent Relationshi p Communication José Carole Other Primary Decision Maker Healthcare Agents on File Name Relationship Healthcare Agent Relationshi p Communication José Shock Other Primary Decision Maker Healthcare Agents on File Name Relationship Healthcare Agent Relationshi p Communication José Shock Other Primary Decision Maker Healthcare Agents on File Name Relationship Healthcare Agent Relationshi p Communication José Shock Other Primary Decision Maker Healthcare Agents on File Name Relationship Healthcare Agent Relationshi p Communication José Carole Other Primary Decision Maker Healthcare Agents on File Name Relationship Healthcare Agent Relationshi p Communication José Shock Other Primary Decision Maker Healthcare Agents on File Name Relationship Healthcare Agent Relationshi p Communication José Carole Other Primary Decision Maker Healthcare Agents on File Name Relationship Healthcare Agent Relationshi p Communication José Shock Other Primary Decision Maker Healthcare Agents on File Name Relationship Healthcare Agent Relationshi p Communication José Carole Other Primary Decision Maker Healthcare Agents on File Name Relationship Healthcare Agent Relationshi p Communication José Shock Other Primary Decision Maker Reason for Referral Specialty Diagnoses / Procedures Referred By Contac t Referred To Contact Radiology Diagnoses Thyromegaly Procedures US THYROID Might, Ana Paula W, [employer]OR [employer] SERVICER - CAP BLOCKER [address] [place] [address] Referral ID Status Reason Start Date Expiration Date Visits Re quested Visits Authorized [id number] Open 07/06/2022 07/06/2023 1 1 Specialty Diagnoses / Procedures Referred By Xiaoac t Referred To Contact Radiology Diagnoses Metatarsalgia, right foot Procedures MRI FOOT RIGHT WO CONTRAST Judah Rios, DPM [address] [place] [address] [place] [address] Referral ID Status Reason Start Date Expiration Date Visits Re quested Visits Authorized [id number] Closed 04/01/2024 09/28/2024 1 1 Specialty Diagnoses / Procedures Referred By Praful brower Referred To Contact Cardiology Diagnoses Abnormal ECG Procedures EKG 12 lead Ana Paula Milligan [employer] SERVIC[employer] - [employer] BLOCKER [address] [place] [address] Referral ID Status Reason Start Date Expiration Date Visits Re quested Visits Authorized [id number] Open 06/02/2024 06/02/2025 1 1 Summary Purpose Family History No Family History Records FoundNo Family History Records FoundNo Family History Records Found Additional Source Comments Care Teams (unrecognized sec tion and content) Bsa Officer Relationship Specialty Start Date End Date Ana Paula Milligan [employer] E[employer] SERVICER - CAP BLOCKER [address] [id number] PCP - General Family Nurse Practitioner 12/29/21 Bsa Officer Relationship Specialty Start Date End Date Ana Paula Milligan [employer] SERVICER - CAP BLOCKER [address] [id number] PCP - General Family Nurse Practitioner 12/29/21 Bsa Officer Relationship Specialty Start Date End Date Ana Paula Milligan [employer] E[employer] AND SERVICER - CAP BLOCKER [address] [id number] PCP - General Family Nurse Practitioner 12/29/21 Bsa Officer Relationship Specialty Start Date End Date Ana Paula Milligan [employer] E[employer] SERVICER - CAP BLOCKER [address] [place] [address] PCP - General Family Nurse Practitioner 12/29/21 Bsa Officer Relationship Specialty Start Date End Date Ana Paula Milligan [employer] E[employer] AND SERVICER - CAP BLOCKER [address] [id number] PCP - General Family Nurse Practitioner 12/29/21 Bsa Officer Relationship Specialty Start Date End Date Might, Ana Paula Santizo APRN - CAP BLOCKER [address] [place] [address] PCP - General Family Nurse Practitioner 12/29/21 Bsa Officer Relationship Specialty Start Date End Date Might, Ana Paula Santizo APRN - CAP BLOCKER [address] [place] [address] PCP - General Family Nurse Practitioner 12/29/21 Bsa Officer Relationship Specialty Start Date End Date Might, Ana Paula Santizo APRN - CAP BLOCKER [address] [place] [address] PCP - General Family Nurse Practitioner 12/29/21 Bsa Officer Relationship Specialty Start Date End Date Might, Ana Paula Santizo APRN - CAP BLOCKER [address] [place] [address] PCP - General Family Nurse Practitioner 12/29/21 Bsa Officer Relationship Specialty Start Date End Date Might, Ana Paula Santizo [employer] E[employer]OR AND SERVICER - CAP BLOCKER [address] [place] [address] PCP - General Family Nurse Practitioner 12/29/21 Bsa Officer Relationship Specialty Start Date End Date Might, Ana Paula Santizo APRN - CAP BLOCKER [address] [place] [address] PCP - General Family Nurse Practitioner 12/29/21 Bsa Officer Relationship Specialty Start Date End Date Might, Ana Paula Santizo [employer] E[employer]OR AND SERVICER - CAP BLOCKER [address] [place] [address] PCP - General Family Nurse Practitioner 12/29/21 Bsa Officer Relationship Specialty Start Date End Date Might, Ana Paula Santizo [employer]OKER E[employer]OR AND SERVICER - CAP BLOCKER [address] [facility] [place] [place] [address] PCP - General Family Nurse Practitioner 12/29/21 Bsa Officer Relationship Specialty Start Date End Date JoséAna Paula APRN [facility] [address] [place] [facility] [address] PCP - General Family Nurse Practitioner 12/29/21 Bsa Officer Relationship Specialty Start Date End Date Ana Paula Milligan APRN [facility] [address] [place] [facility] [address] PCP - General Family Nurse Practitioner 12/29/21 Bsa Officer Relationship Specialty Start Date End Date Ana Paula Milligan APRN [facility] [address] [place] [facility] [place] [address] PCP - General Family Nurse Practitioner 12/29/21 Bsa Officer Relationship Specialty Start Date End Date Ana Paula Milligan APRN [facility] [address] [place] [facility] [address] PCP - General Family Nurse Practitioner 12/29/21 Bsa Officer Relationship Specialty Start Date End Date Ana Paula Milligan APRN [facility] [address] [place] [facility] [place] [address] PCP - General Family Nurse Practitioner 12/29/21 Bsa Officer Relationship Specialty Start Date End Date Ana Paula Milligan APRN [facility] [address] [place] [facility] [place] [address] PCP - General Family Nurse Practitioner 12/29/21 Reason for Visit (unrecogniz ed section and content) Specialty Diagnoses / Procedures Referred By Praful brower Referred To Contact Radiology Diagnoses Thyromegaly Procedures US THYROID Might, Ana Paula Santizo APRN [facility] [address] [place] [facility] [place] [address] Referral ID Status Reason Start Date Expiration Date Visits Re quested Visits Authorized [id number] Open 07/06/2022 07/06/2023 1 1 Specialty Diagnoses / Procedures Referred By Praful brower Referred To Contact Radiology Diagnoses Screening mammogram, encounter for Procedures SHAUNNA RENNY DIGITAL SCREEN AUGMENTED BILATERAL SHAUNNA RENNY DIGITAL SCREEN BILATERAL Spencer Jazzminesalvador Skinner, STOKER ERECTOR AND SERVICER - CNM [address] [place] [address] Referral ID Status Reason Start Date Expiration Date Visits Re quested Visits Authorized [id number] Closed 09/12/2022 09/12/2023 1 1 Referral ID Status Reason Start Date Expiration Date Visits Re quested Visits Authorized [id number] Closed 10/08/2023 10/07/2024 1 1 Specialty Diagnoses / Procedures Referred By Praful brower Referred To Contact Radiology Diagnoses Metatarsalgia, right foot Procedures MRI FOOT RIGHT WO CONTRAST Judah Rios, [facility] [address] [place] [address] [place] [address] Referral ID Status Reason Start Date Expiration Date Visits Re quested Visits Authorized [id number] Closed 04/01/2024 09/28/2024 1 1 Ordered Prescriptions (unrec ognized section and content) Prescription Sig Dispensed Refills Start Date End Da te oxyCODONE-acetaminophen (PERCOCET) 5-325 MG per tabletIndications:Pain following surgery or procedure Take 1 tablet by mouth every 6 hours as needed for Pain for up to 7 days. Intended supply: 7 days. Take lowest dose possible to manage pain Max Daily Amount: 4 tablets 28 tablet 06/08/2024 06/15/2024 Scheduled Active and Recently Administ ered Medications (unrecognized section and content) Medication Order 06/06/2024 06/07/2024 06/08/2024 aprepitant (EMEND) capsule 40 mg (COMPLETED) 40 mg, Oral, ONCE, 1 dose, On Sat06/08/24 at 0730, Pre-op (day of surgery) 0750 (Given - Provid er: Kassidy Layton RN) ceFAZolin (ANCEF) 2000 mg in sterile water 20 mL IV syringe (COMPLETED) 2,000 mg, IntraVENous, ONCE, On Sat06/08/24 at 0845, For 1 dose, Administer over 5 mins., Pre-op (day of surgery) 0844 (Given - Provid er: BRITTANY Berkowitz CRNA) oxyCODONE-acetaminophen (PERCOCET) 5-325 MG per tablet 1 tablet (COMPLETED) 1 tablet, Oral, ONCE, 1 dose, On Sat06/08/24 at 1245, Maximum dose of acetaminophen is 4000 mg from all sources in 24 hours., STAT 1223 (Given - Provid er: Becky Joseph RN) scopolamine (TRANSDERM-SCOP) transdermal patch 1 patch 1 patch, TransDERmal, Administer over 72 Hours, EVERY 72 HOURS, First dose on Sat06/08/24 at 0730, For 1 dose, Remove in 72 hours, Multiphase Phase of Care 0751 (Patch Applied - Provider: Kassidy Layton, RN - Comment: behind right ear) sodium chloride flush 0.9 % injection 5-40 mL 5-40 mL, IntraVENous, EVERY 12 HOURS SCHEDULED (2 times per day), First dose on Sat06/08/24 at 0900, Until Discontinued, For Line Patency: Peripheral IV = 5 mL; Midline or Central Line = 10 mL/lumen. If following IV push medication, administer flush at same rate as the IV push. Flush volume is determined by type of infusion therapy being given. For non-viscous solutions use: Peripheral IV = 5 mL Midline or Central Line = 10 mL/lumen For viscous solutions (i.e. blood components, parenteral nutrition, contrast media, or after obtaining blood sample) use: Peripheral IV = 10 mL Midline or Central Line = 20 mL/lumen, Pre-op (day of surgery) 0900 (Due)2100 (Due) Continuous Medication Order 06/06/2024 06/07/2024 06/08/2024 lactated ringers infusion IntraVENous, at 125 mL/hr, CONTINUOUS, Starting on Sat06/08/24 at 0730, Pre-op (day of surgery) 0747 (New Bag - Prov ider: Kassidy Layton, JIMBO)0834 (NoRateChange - Provider: BRITTANY Berkowitz CRNA)1141 (Paused - Provider: BRITTANY Berkowitz CRNA - Comment: Switch to gravity)1142 (Restarted - Provider: BRITTANY Berkowitz CLAY STAIN MIXER) PRN Medication Order 06/06/2024 06/07/2024 06/08/2024 0.9 % sodium chloride infusion IntraVENous, at 5-250 mL/hr, PRN, if patient receiving piggyback infusions and maintenance fluids are not ordered OR KVO fluids to protect IV site / prevent frequent line interruptions/ long duration, Starting on Sat06/08/24 at 0705, For piggyback infusion, administer at same rate as piggyback for a total of 25 mL. Enter 25 mL into dose field and piggyback rate into rate field of order. If piggyback is infusing at a rate less than 100 mL/hr, enter 25 mL into dose field and 100 mL/hr into rate field of order. For KVO fluids, enter rate of 20 mL/hr or less into rate field of order., Pre-op (day of surgery) BUPivacaine-EPINEPHrine (MARCAINE-w/EPINEPHrine) 0.25% -1:[id number] injection (CANCELED) PRN, Starting on Sat06/08/24 at 0956, Until Sat06/08/24 at 1143, Intra-op 0956 (Given - Provid er: Sujata Adrian MD)1010 (Given - Provider: Sujata Adrian MD) gentian shagufta 1 % topical solution (CANCELED) PRN, Starting on Sat06/08/24 at 0855, Intra-op 0855 (Given - Provid er: Sujata Ardian MD - Comment: to the sterile field) lidocaine PF 1 % injection 1 mL 1 mL, IntraDERmal, ONCE PRN, 1 dose, Starting on Sat06/08/24 at 0705, Until 06/09/24 at 0705, IV start, Pre-op (day of surgery) sodium chloride flush 0.9 % injection 5-40 mL 5-40 mL, IntraVENous, PRN, Starting on Sat06/08/24 at 0705, Until Discontinued, Line Care, After every IV line use, For Line Patency: Peripheral IV = 5 mL; Midline or Central Line = 10 mL/lumen. If following IV push medication, administer flush at same rate as the IV push. Flush volume is determined by type of infusion therapy being given. For non-viscous solutions use: Peripheral IV = 5 mL Midline or Central Line = 10 mL/lumen For viscous solutions (i.e. blood components, parenteral nutrition, contrast media, or after obtaining blood sample) use: Peripheral IV = 10 mL Midline or Central Line = 20 mL/lumen, Pre-op (day of surgery) 0747 (Given - Provid er: Kassidy Layton RN) No Frequency Medication Order 06/06/2024 06/07/2024 06/08/2024 BUPivacaine-EPINEPHrine PF (MARCAINE-w/EPINEPHrine) 0.25% -1:[id number] injection 1 dose, Starting on Sat06/08/24 at 0806, Until Sat06/08/24 at 2013, Blaine Shirley: cabinet override, Blaine Shirley: cabinet override 0815 (Due) dexmedeTOMIDine HCl in NaCl (PRECEDEX) 400 MCG/100ML premix infusion 1 dose, Starting on Sat06/08/24 at 0800, Until Sat06/08/24 at 2013, J Luis Au: cabinet override, J Luis Au: cabinet override 0815 (Due) gentian shagufta 1 % topical solution Starting on Sat06/08/24 at 0805, For 1 dose, Blaine Shirley: cabinet override 0815 (Due) INFORMATION SOURCE (unrecogn ized section and content) DATE CREATED AUTHOR 06/13/2024 [facility] DATE CREATED AUTHOR AUTHOR'S ORGANIZ ATION 06/13/2024 [facility] DATE CREATED AUTHOR AUTHOR'S ORGANIZ ATION 07/19/2024 [facility] FOR RECORDS PERTAINING TO PATIENTS WHO ARE OR HAVE BEEN ENROLLED IN A CHEMICAL DEPENDENCY/SUBSTANCEABUSE PROGRAM, SOME INFORMATION MAY BE OMITTED. This clinical summary was aggregated from multiple sources. Caution should be exercised in using it in the provision of clinical care. This summary normalizes information from multiple sources, and as a consequence, information in this document may materially change the coding, format and clinical context of patient data. In addition, data may be omitted in some cases. CLINICAL DECISIONS SHOULD BE BASED ON THE PRIMARY CLINICAL RECORDS. [employer] [facility]. provides no warranty or guarantee of the accuracy or completeness of information in this document.
[2024-07-23 06:16] LABS: Basophils Absolute Auto 0.1 10^3/uL (0.0-0.1); Basophils Percent Auto 0.8 % (0.2-2.0); Eosinophils Absolute Auto 0.5 10^3/uL (0.0-0.7); Eosinophils Percent Auto 6.2 % (0.9-7.0); Hematocrit 41.3 % (36.0-48.0); Immature Granulocytes Abs Auto 0.01 10^3/uL (0.00-0.03); Immature Granulocytes Pct Auto 0.1 % (0.0-0.5); Lymphocytes Absolute Auto 2.2 10^3/uL (1.2-3.8); Lymphocytes Percent Auto 30.1 % (20.5-60.0); Mean Corpuscular HGB Conc 33.9 g/dL (29.9-35.2); Mean Corpuscular Hemoglobin 31.3 pg (26.7-34.0); Mean Corpuscular Volume 92.2 fL (81.0-99.0); Mean Platelet Volume 9.8 fL (9.5-13.5); Monocytes Absolute Auto 0.7 10^3/uL (0.3-0.8); Monocytes Percent Auto 9.2 % (1.7-12.0); Neutrophils Absolute Auto 3.9 10^3/uL (1.4-6.5); Neutrophils Percent Auto 53.6 % (43.0-75.0); Platelet Count 166 10^3/uL (150-450); Red Blood Count 4.48 10^6/uL (4.20-5.40); Red Cell Distribution Width 11.8 % (11.0-15.0); White Blood Count 7.4 10^3/uL (4.0-11.0)
[2024-07-23 06:25] LABS: HCG Qualitative NEGATIVE (NEGATIVE); Internal Control Within Normal Limits
[2024-07-23 06:47] LABS: Glucometer 100 mg/dL (74-106)
[2024-07-23] MEDS: LACTATED RINGER'S SOLUTION 1,000 ML 50 ML IV (06:56)
[2024-07-23] MEDS: SCOPOLAMINE 1 MG/3 DAYS TRANSDERM PATCH 1 PATCH TD (07:02)
[2024-07-23] MEDS: CEFAZOLIN SODIUM 2 GM/50 ML D5W PREMIX IV (07:49)
--- NOTE | 2024-07-23 08:47 | PC.NURSE ---
(5832) Final timeout completed. Patient placed on 2l/min via nc and on monitor. (2034) Right popliteal landmarked with ultrasound per Dr. Delgado. Right popliteal block initiated. (9436) Right popliteal block completed. Patient tolerated it well. See posted vital signs.
[2024-07-23] MEDS: LACTATED RINGER'S SOLUTION 1,000 ML 1000 ML IV (09:10)
[2024-07-23] MEDS: BUPIVACAINE HCL 0.5% PF 50 MG/10 ML VIAL 20 ML INJ (10:06)
--- NOTE | 2024-07-23 10:13 | XR_ITS ---
The [address] [address] Patient Name: ALEC LAM MRN: [id number] date: 1975 Sex: F Assigned Patient Location: [facility] Current Patient Location: [facility] Accession/Order Number: [id number] Exam Date: 07/23/2024 11:10 Report Date: 07/24/2024 12:00 At the request of: MIGUEL SAAVEDRA Procedure: XR foot RT min 3V PROCEDURE: XR foot RT min 3V COMPARISON: 05/13/2024 HISTORY: hallux rigidus, 2nd hammertoe FINDINGS: BONES:Interval fusion the first metatarsal-phalangeal joint with dorsal plate and screws. No acute fracture, dislocation or mechanical failure SOFT TISSUES:Postprocedural dorsal subcutaneous soft tissue swelling and air EFFUSION:None visible. OTHER: Negative. XR/XR foot RT min 3V IMPRESSION: First metatarsal-phalangeal joint fusion Electronically authenticated by: NAHOMY KENNY Date: 07/24/2024 12:00
[2024-07-23 10:45] LABS: Glucometer 119 mg/dL (74-106)
--- NOTE | 2024-07-23 11:52 | P.ORON_ITS ---
Brief Operative Note Date of procedure: 07/23/24 Pre-op diagnosis general: Right hallux rigidus, second hammertoe with contract ure at metatarsal phalangeal joint Post-op diagnosis: same as pre-op Procedure: Procedure performed: Right first metatarsal phalangeal joint fusion, second proximal inner phalangeal joint arthroplasty, second metatarsophalangeal joint capsulotomy, application of short leg splint Indications for procedure: Patient is a 48-year-old female who presented to me for second opinion regarding her right foot. She previously was treated by another foot surgeon for last 2 years for right great toe pain which included multiple injections, orthotics and metatarsal pads. Her pain has only worsened over the last 2 years and has been affecting activities of daily living, recreation and exercise. She had been given previous surgical options involving first MPJ fusion versus first MPJ joint replacement versus cheilectomy. I discussed the pros and cons of each option and she wished to undergo first MPJ fusion. Today in the preoperative area she also related to pain at her dorsal second PIP J which sometimes rubs in shoes and persistent pain at the plantar aspect of the second metatarsal head. Examination of this toe revealed a reduci ble hammertoe as well as dorsiflexion and valgus reducible deformity at the metatarsal phalangeal joint. After discussing the potential risks and benefits of correcting her second toe in addition to her great toe she wished to proceed with additional procedures and I recommended PIPJ arthroplasty and release of the second metatarsal phalangeal joint capsule. Intraoperative findings: First metatarsal head had greater than 50% of full- thickness cartilage erosion predominantly at its dorsal aspect. The plantar cartilage was thin and there was a significant amount of acute and chronic synovitis surrounding the joint. Periarticular osteophytes were also noted. Sagittal plane deformity of the proximal inner phalangeal joint of the second toe was reducible and after arthroplasty this deformity was corrected however mild reducible contracture persisted at the metatarsal phalangeal joint. Bone quality was within normal limits. Procedure in detail: Patient was identified in preoperative holding by myself which time correct side and site were marked and consent was obtained. Regional anesthesia was performed by the anesthesia team and patient is brought back to the operating theater placed on table in supine position with a thigh tourniquet. General anesthesia was administered and the right lower extremity was prepped and draped in usual sterile fashion. Formal timeout was performed and the right lower extremity was exsanguinated and tourniquet was inflated. Incision over the dorsal aspect of the first metatarsal phalangeal joint was placed parallel to the extensor hallucis longus tendon which was protected throughout the procedure. Combination of sharp and blunt dissection with all bleeders being coagulated gained access to the dorsal first metatarsal and proximal phalanx. The capsule of the first MPJ was released with a scalpel and a McGlamry elevator then a guidepin was placed into the first metatarsal centered on the first metatarsal head. Reamers were used to prepare the first metatarsal head removing all cartilage and subchondral bone. Reamers and guidepin were removed and the guidepin was placed into the base of the proximal phalanx and reamers were used to remove cartilage and subchondral bone while contouring the joint for fusion. The guidepin and reamer were removed and the site was irrigated. 2.0 mm drill bit was then used to drill the fusion site which was then irrigated with copious saline. 1 cc of bone allograft was packed into the fusion site. Then a stab incision was placed on the medial aspect of the great toe which was then pinned in a rectus position under fluoroscopic guidance ensuring good bony apposition. Position was checked on the table as well as under fluoroscopy. Then a 3.5 mm cannulated screw was placed over the g uidewire accordingly noting compression at the fusion site. Hardware placement and position of the great toe was checked on the table as well as under fluoroscopy. Then a rongeur and sagittal saw was used to contour the dorsal aspect of the first metatarsal and proximal phalanx. A locking first MPJ plate was then provisionally fixated and checked under fluoroscopy. Then locking and nonlocking screws were placed accordingly removing temporary fixation. Stability and position was adequate and the sagittal saw was used to contour the medial eminence of the first metatarsal ensuring no bony prominences. Surgical site was irrigated with copious saline. Attention was then drawn to the second toe and an elliptical incision was placed over the dorsal aspect of the proximal inner phalangeal joint. Combination of sharp and blunt dissection gained access to the extensor tendon which was transected transversely gaining access to the PIPJ which was released of all periligamentous tissue exposing the proximal phalanx head. Sagittal saw was used to remove the proximal phalanx head which was passed the back table. Surgical site was irrigated and the tendon was repaired with observable suture. The deformity of the toe was now reduced however when loading the foot slight dorsiflexion and valgus deformity persisted at the level of the MPJ. Utilizing fluoroscopy a scalpel was used to create a stab incision over the dorsal lateral aspect of the second metatarsal phalangeal joint. The capsule and lateral collateral ligaments were released sharply. The foot was loaded and the second toe was now reduced. Surgical sites were irrigated with copious saline and incisions were then closed in layers. Tourniquet was deflated with a prompt hyperemic response. A dry sterile dressing and multilayer modified Waters compression splint was placed. Brisk capillary refill was noted to the toes. Patient tolerated the procedure and anesthesia well transferred to the recovery room with vital signs stable and brisk capillary refill to the toes. Postoperative plan: Discharge home under mother's care Prescriptions were sent to her pharmacy using my office EMR Nonweightbearing right foot but may place partial weight to the right heel for balance and transfers Elevate above level of the heart Follow-up in 1 to 2 weeks to be placed into a cam boot Implants: Medline plate and screws; 1 cc Sparc bone allograft Anesthesia: regional and General-LMA Surgeon: Navneet Valdez Estimated blood loss (mL): 10 Tourniquet time (min): 62 Pathology: none sent Condition: stable Disposition: PACU
== END 2024-07-23 12:20 | disposition home or self-care (01) ==
PROVIDERS: Anesthesiology; Visit Provider Podiatrist Foot & Ankle Surgery
PROC: (CPT 1480; principal; 2024-07-23 07:30)
DX: M20.21 Hallux rigidus, right foot (principal); M20.41 Other hammer toe(s) (acquired), right foot; M24.574 Contracture, right foot; F41.9 Anxiety disorder, unspecified; I10 Essential (primary) hypertension; Z79.899 Other long term (current) drug therapy; Z79.1 Long term (current) use of non-steroidal anti-inflammatories (NSAID); Z88.2 Allergy status to sulfonamides
CPT/HCPCS: 28270; 28285; 28750; 36415; 64445; 73630; 76000; 82948; 84703; 85025; C1713; J0665; J0690; J1100; J1885; J2250; J2405; J2704; J2795; J3010

== ENCOUNTER 2024-08-19 14:47 | Outpatient (OUT) | payer BC, SELFPAY ==
--- NOTE | 2024-08-19 14:51 | XR_ITS ---
The [address] [address] Patient Name: ALEC LAM MRN: [id number] date: 1975 Sex: F Assigned Patient Location: [facility] Current Patient Location: Accession/Order Number: [id number] Exam Date: 08/19/2024 14:57 Report Date: 08/20/2024 07:45 At the request of: MIGUEL SAAVEDRA Procedure: XR foot RT min 3V PROCEDURE: XR foot RT min 3V COMPARISON: 07/23/2024 HISTORY: Right Foot Pain FINDINGS: BONES:Stable fusion of the first metatarsal-phalangeal joint with a plate and screws. Interval partial bony fusion across the joint space. No acute fracture or dislocation. Mild enthesopathic spurring of the calcaneus. Remote resection head of the second proximal phalanx SOFT TISSUES:Negative. No visible soft tissue swelling. EFFUSION:None visible. OTHER: Negative. XR/XR foot RT min 3V IMPRESSION: Stable first metatarsal-phalangeal joint fusion with partial bony bridging Electronically authenticated by: NAHOMY KENNY Date: 08/20/2024 07:45
== END 2024-08-19 14:48 | disposition home or self-care (01) ==
LOC: RAD 14:47
PROVIDERS: Visit Provider Podiatrist Foot & Ankle Surgery
DX: M79.671 Pain in right foot (principal); M24.674 Ankylosis, right foot
CPT/HCPCS: 73630

== ENCOUNTER 2024-09-09 14:46 | Outpatient (OUT) | payer BC, SELFPAY ==
--- OUTSIDE RECORDS SUMMARY | 2024-09-09 14:49 | XMS_ITS | CCD ---
Author Organization [facility] Care Team Providers Care Residence Counselor Name Role Phone Cris Tomás Ernst Primary Care Provider Might SENIOR LOGISTICS MANAGER - VAMP THROATER, Ana Paula Santizo Primary Care Provider Might SENIOR LOGISTICS MANAGER - VAMP THROATER, Ana Paula Santizo Primary Care Provider Might SENIOR LOGISTICS MANAGER - VAMP THROATER, Ana Paula Santizo Primary Care Provider Might SENIOR LOGISTICS MANAGER - VAMP THROATER, Ana Paula Santizo Primary Care Provider Might SENIOR LOGISTICS MANAGER-VAMP THROATER, Ana Paulabernie Myers Primary Care Un available Kimberlee Spears MD Attending Unavail able Might SENIOR LOGISTICS MANAGER-VAMP THROATER, Ana Paula Louis Primary Care Un available Kimberlee Spears MD Attending Unavail able Might SENIOR LOGISTICS MANAGER-VAMP THROATER, [facility] Care Un available Kimberlee Spears MD Attending Unavail able Might SENIOR LOGISTICS MANAGER-VAMP THROATER, [facility] Care Un available Kimberlee Spears MD Attending Unavail able Might SENIOR LOGISTICS MANAGER-VAMP THROATER Anap Aula Louis Primary Care Un available Jessika SENIOR LOGISTICS MANAGER-VAMP THROATERSameera Attending U navailable Might SENIOR LOGISTICS MANAGER-VAMP THROATER, [facility] Primary Care Un available Jessika SENIOR LOGISTICS MANAGER-VAMP THROATER, Sameera Herrera Attending U navailable Might SENIOR LOGISTICS MANAGER-VAMP THROATER [facility] Primary Care Un available Kimberlee Spears MD Attending Unavail able Might SENIOR LOGISTICS MANAGER-VAMP THROATER, [facility] Care Un available Kimberlee Spears MD Attending Unavail able MIGHTANA PAULA Primary Care Unavailable Sujata ADRIAN Attending Unavailabl e Sujata ADRIAN Admitting Unavailabl e MIGHT, ANA PAULA Santizo Primary Care Unavailable Sujata ADRIAN Referring UnavailKIMBERLEE Lui Referring Unavailable MIGHT, ANA PAULA Santizo Primary Care Unavailable SLACK, LOTTIE Referring Unavailable MIGHT, ANA PAULA W Primary Care Unavailable MIGHT, ANA PAULA W Referring Unavailable MIGHT, ANA PAULA W Primary Care Unavailable MIGHT, ANA PAULA W Referring Unavailable MIGHT, ANA APULA W Primary Care Unavailable MIGHT, ANA PAULA W Primary Care Unavailable MIGHT, ANA PAULA W Referring Unavailable MIGHT, ANA PAULA W Primary Care Unavailable MIGHT, ANA PAULA W Referring Unavailable MIGHT, ANA PAULA W Primary Care Unavailable MIGHT, ANA PAULA W Referring Unavailable MIGHT, ANA PAULA W Primary Care Unavailable MIGHT, ANA PAULA W Referring Unavailable MIGHT, ANA PAULA W Referring Unavailable [...] W Referring Unavailable MIGHT, ANA PAULA W Referring Unavailable [...] Unavailable MIGHT, ANA PAULA W Referring Unavailable SLACK, LOTTIE Referring Unavailable MIGHT, ANA PAULA W Primary Care Unavailable MIGHT, ANA PAULA W Referring Unavailable MIGHT, ANA PAULA W Primary Care Unavailable SLACK, LOTTIE Referring Unavailable MIGHT, ANA PAULA W Primary Care Unavailable MIGHT, ANA PAULA W Primary Care Unavailable MIGHT, ANA PAULA W Referring Unavailable MIGHT, ANA PAULA W Primary Care Unavailable JAZZMINE PALMER Referring Unavailabl e JAZZMINE PALMER Attending Unavailabl e MIGHT, ANA PAULA W Referring Unavailable MIGHT, ANA PAULA W Primary Care Unavailable MIGHT, ANA PAULA W Primary Care Unavailable JUDAH RIOS Referring Unavailable JUDAH RIOS Attending Unavailable MIGHT, ANA PAULA W Primary Care Unavailable MIGHT, ANA PAULA W Referring Unavailable SLACK, LOTTIE Referring Unavailable MIGHT, ANAP AULA W Primary Care Unavailable MIGHT, ANA PAULA W Referring Unavailable MIGHT, ANA PAULA W Primary Care Unavailable MIGHT, ANA PAULA W Primary Care Unavailable MIGHT, ANA PAULA W Referring Unavailable MIGHT, ANA PAULA W Primary Care Unavailable MIGHT, ANA PAULA W Referring Unavailable MIGHT, ANA PAULA W Primary Care Unavailable MIGHT, ANA PAULA W Referring Unavailable MIGHT, ANA PAULA W Primary Care Unavailable Allergies Allergy Classification Reported Allergen(s) Allergy Type Date of Onset Reaction(s) Facility (20 sources) Sulfamethoxazole / Trimethoprim Drug Allergy 12-26-20 16 [place] (1 source) Sulfonamides (Antibiotic); Translations: [sulfa drugs] Propensity to adverse reactions to drug (disorder) [facility] Repository Medications Current Medications Medication Drug Class(es) [...] from all sources in 24 hours., STAT [id number] 200 actuat albuterol 0.09 mg/actuat metered dose [...] mg / clavulanate 125 mg oral tablet (2 sources) Penicillin-class Antibacterial Start: 07-15-2024 End: 07-25-2024 take [...] tablet (6 sources) gamma-Aminobutyric Acid-ergic Agonist Start: 03-19-2022 baclofen (LIORESAL) 20 MG tablet Indications: Left [...] IntraVENous, at 125 mL/hr, CONTINUOUS, Starting on 06/08/24 at 0730, Pre-op (day of surgery) cephalexin 500 mg oral capsule (10 sources) Cephalosporin Antibacterial Start: 06-01-2024 take 1 [...] Start: 07-08-2023 take 1 tablet by moise th once [...] mg / valsartan 80 mg oral tablet (20 sources) Thiazide Diuretic, Angiotensin 2 Receptor Justyn [...] 7 days. 14 tablet 0 03/29/2022 Active meloxicam 15 mg oral tablet (1 source) Nonsteroidal Anti-inflammatory Drug Start: 07-13-2024 meloxicam (MOBIC) 15 MG tablet Take 1 tablet by mouth 07/13/2024 Active metroNIDAZOLE 500 mg oral tablet (1 [...] Sat06/08/24 at 0730, Pre-op (day of surgery) celecoxib 200 mg oral capsule (20 sources) Nonsteroidal Anti-inflammatory Drug Start: 01-02-2024 End: 06-02-2024 take 1 capsule by mouth once daily celecoxib (CELEBREX) 200 MG capsule Indications: Generalized OA TAKE 1 CAPSULE BY MOUTH EVERY DAY 90 capsule 1 01/02/2024 06/02/2024 Discontinued (LIST CLEANUP) Start: 07-08-2023 take 1 capsule by mo uth once daily celecoxib (CELEBREX) 200 MG capsule Indications: Generalized OA TAKE 1 CAPSULE BY MOUTH EVERY DAY 90 capsule 1 07/08/2023 Active Start: 06-22-2022 take 1 capsule by mo uth once daily celecoxib (CELEBREX) 200 MG capsule Indications: Generalized OA TAKE 1 CAPSULE BY MOUTH EVERY DAY 90 capsule 1 06/22/2022 Active Start: 05-27-2022 take 1 capsule by mo uth once daily celecoxib (CELEBREX) 200 MG capsule [...] 12-29-2021 12-29-2021 Chronic Disorders of lipid metabolism (20 sources) Dyslipidemia; Translations: [Hyperlipidemia, unspecified] Onset: 02-01-2023 02-01-2023 Chronic Essential hypertension (1 source) Essential hypertension; Translations: [Essential (primary) hypertension] Onset: 08-14-2024 08-14-2024 Chronic Osteoarthritis (20 sources) Degenerative joint disease [...] Date Documented Date Episodic/Chronic Acquired foot deformities (18 sources) Acquired deformity of toe; Translations: [Other [...] 09-12-2023 12-29-2021 Episodic Other connective tissue disease (19 sources) Metatarsalgia of right foot; Translations: [Metatarsalgia, [...] Results Test Name Value Interpretation Reference Range Facility Basic Metabolic Panelon 10-1 Anion gap [Moles/Vol] [...] Est, Glom Filt Rate 83 - PINF [facility] Comment on above: These results are not [...] [Mass/Vol] 16 mg/dL 6 - 20 mg/dL [facility] Basic Metabolic Profon 05-22 Anion gap [Moles/Vol] 12 mmol/L Normal 9-16 [facility] Comment on above: Performed By: #### B MP, CBC #### [facility] [address] [place] [id number] Ecological Economist: Cory Farmer MD Calcium [Mass/Vol] 9.3 mg/dL Normal 8.6-10.4 [facility] Comment on above: Performed By: #### B MP, CBC #### [facility] [address] [place], [place] [phone] Ecological Economist: Cory Farmer MD Chloride [Moles/Vol] 100 mmol/L Normal 98-107 [facility] Comment on above: Performed By: #### B MP, CBC #### [facility] [address] [place] [address] Ecological Economist: Cory Farmer MD CO2 [Moles/Vol] 26 mmol/L Normal 20-31 [facility] Comment on above: Performed By: #### B MP, CBC #### [facility] [address] [place] [address] Ecological Economist: Cory Farmer MD Creatinine [Mass/Vol] 0.9 mg/dL Normal 0.50-0.90 [facility] Comment on above: Performed By: #### B MP, CBC #### [address] [address] Ecological Economist: Cory Farmer MD GFR/1.73 sq M.predicted among non-blacks MDRD (S/P/Bld) [Vol rate/Area] 83 mL/min/{1.73_m2} Normal >60 [facility] Comment on above: Result Comment: These results [...] Performed By: #### B MP, CBC #### [facility] [address] [place] [address] Ecological Economist: Cory Farmer MD Glucose [Mass/Vol] 85 mg/dL Normal 74-99 [facility] Comment on above: Performed By: #### B MP, CBC #### [facility] [address] [place] [address] Ecological Economist: Cory Farmer MD Potassium [Moles/Vol] 3.9 mmol/L Normal 3.7-5.3 [facility] Comment on above: Performed By: #### B MP, CBC #### [facility] [address] [place], [place] [phone] Ecological Economist: Cory Farmer MD Sodium [Moles/Vol] 138 mmol/L Normal 136-145 [facility] Comment on above: Performed By: #### B MP, CBC #### [facility] [address] [place], [place] [phone] Ecological Economist: Cory Farmer MD Urea nitrogen [Mass/Vol] 16 mg/dL Normal 6-20 [facility] Comment on above: Performed By: #### B MP, CBC #### [facility] [place], [place] [phone] Ecological Economist: Cory Farmer MD CBCon 05-22-2024 Erythrocyte distribution [...] Health Center WBC other (Bld) [#/Vol] 6.7 [facility] Erythrocyte distribution width (RBC) [Ratio] 12.4 % Normal 11.8-14.4 [facility] Comment on above: Performed By: #### B MP, CBC #### [facility] [address] [place] [address] Ecological Economist: Cory Farmer MD Hematocrit (Bld) [Volume fraction] 41.5 % Normal 36.3-47.1 [facility] Comment on above: Performed By: #### B MP, CBC #### [facility] [address] [place] [address] Ecological Economist: Cory Farmer MD Hemoglobin (Bld) [Mass/Vol] 13.9 g/dL Normal 11.9-15.1 [facility] Comment on above: Performed By: #### B MP, CBC #### [facility] [address] [place] [phone] Ecological Economist: Cory Farmer MD MCH (RBC) [Entitic mass] 31.7 pg Normal 25.2-33.5 [facility] Comment on above: Performed By: #### B MP, CBC #### [facility] [address] [place] [address] Ecological Economist: Cory Farmer MD MCHC (RBC) [Mass/Vol] 33.5 g/dL Normal 28.4-34.8 [facility] Comment on above: Performed By: #### B MP, CBC #### [facility] [address] [place] [address] Ecological Economist: Cory Farmer MD MCV (RBC) [Entitic vol] 94.7 fL Normal 82.6-102.9 [facility] Comment on above: Performed By: #### B MP, CBC #### [address] [address] Ecological Economist: Cory Farmer MD NRBC Automated 0.0 per 100 WBC Normal 0.0 [facility] Comment on above: Performed By: #### B MP, CBC #### [address] [address] Ecological Economist: Cory Farmer MD Platelet mean volume (Bld) [Entitic vol] 9.9 fL Normal 8.1-13.5 [facility] Comment on above: Performed By: #### B MP, CBC #### [address] [address] Ecological Economist: Cory Farmer MD Platelets (Bld) [#/Vol] 190 10*3/uL Normal 138-453 [facility] Comment on above: Performed By: #### B MP, CBC #### [address] [address] Ecological Economist: Cory Farmer MD RBC (Bld) [#/Vol] 4.38 10*6/uL Normal 3.95-5.11 [facility] Comment on above: Performed By: #### B MP, CBC #### [address] [address] Ecological Economist: Cory Farmer MD WBC (Bld) [#/Vol] 6.7 10*3/uL Normal 3.5-11.3 [facility] Comment on above: Performed By: #### B MP, CBC #### [address] [address] Ecological Economist: Cory Farmer MD MR Foot - right WO contrasto n 04-08-2024 1. No clear MR evidence for metatarsal stress fracture. 2. Probable degenerative marrow edema and intraosseous ganglion formation in the proximal phalanx 1st digit and distal 1st metatarsal. 3. Mild degenerative change of the 1st MTP/MTS joints. Mild hallux valgus/metatarsus varus. [facility] CONSOLIDATED EXAMINATION: MRI OF THE RIGHT FOOT [...] intact without evidence of tearing or tenosynovitis. [facility] CONSOLIDATED Nhan Dooley MD - 04/08/2024 EXAMINATION: MRI OF THE [...] 1st MTP/MTS joints. Mild hallux valgus/metatarsus varus. [facility] Radiology Study observation (narrative) [facility] MR Foot - right WO contrastO rdered By: Nhan Dooley on 04-08-2024 [facility] Work Phone: MRI FOOT RIGHT WO CONTRASTon [...] Nhan Dooley MD 04/08/24 Final result Normal [facility] Provider Letteron 02-10-2024 Provider Letter Ana Paula Milligna APRN-VAMP THROATER [address] [place] [address] Re: Alec Lam 1975 Date of Visit: 01/28/2024 Dear Ana Paula Milligan, I had the pleasure of evaluating your patient, Alec Lam, in the [facility] on 01/28/2024. Attached you will find my [...] our office with any questions. Sincerely, Kimberlee Spears MD MS Allergy and Immunology [facility] [address] [address] C C Providers: The following document(s) were included in the letter: January 28, 2024 15:19:26 EDT - (01/28/2024) Office Visit Note Normal [facility] Allergy/Immunology Office/Cl inic Noteon 01-28-2024 Allergy/Immunology Office/Clinic [...] shots Schedule repeat skin testing with Dr. Spears 2. Recurrent sinus infections There has been [...] note was created with the aid of [employer] voice recognition software. Every reasonable effort was made to assure accuracy and reliability of this note despite the inaccuracy, inefficiencies, and flaws of any electronic medical record program. There may be typographical errors that remain unaddressed and this in no way reflects on the quality of patient care received in this (more content not included)... Normal [facility] DBT Breast - bilateral scree n for implanton 11-29-2023 Stable exam. No mammographic evidence of malignancy BIRADS: BIRADS - CATEGORY 2 Benign Findings. Normal interval follow-up is recommended in 12 months. OVERALL ASSESSMENT - BENIGN A letter of notification will be sent to the patient regarding the results. [employer] recommends annual mammograms for women 40 years and older. [facility] RIS CONSOLIDATED EXAMINATION: BREAST SCREENING MAMMOGRAM WITH TOMOSYNTHESIS, [...] microcalcification in either breast. Bilateral implants stable. [facility] CONSOLIDATED Radiology Study observation (narrative) [facility] DBT Breast - bilateral scree n for implantOrdered By: Kevin Lopez on 11-29-2023 [facility] Work Phone: [facility] RENNY DIGITAL SCREEN AUGM ENTED BILATERALon 11-29-[address] [facility] RENNY DIGITAL SCREEN AUGMENTED BILATERAL EXAMINATION: BREAST [...] to the patient regarding the results. [employer] recommends annual mammograms for women 40 years and older. Interpreted by: Kevin Lopez DO Signed by: Kevin Lopez DO 11/29/23 Final result Normal [facility] Cytology Reporton 10-08-2023 Cytology report Cyto stain.thin prep Doc (Cvx/Vag) (NOTE) Path Number: [id number] DIAGNOSIS Imaged ThinPrep Pap - Cervical (1 [...] neoplasm of cervix LMP: 10/03/2023 Processing Lab: [place] [id number] Interpretation performed at [facility] [address] [place] [address] This Pap Test has been evaluated with the assistance of the [employer] reQRdosPrep Pap Test Imaging System. The Pap smear is a screening test primarily for squamous epithelial lesions, which is subject to both false negative and false positive results. Your patient should be reminded to consult you immediately if she experiences any suspicious signs or symptoms, regardless of her Pap smear result. GYNECOLOGIC CYTOLOGY REPORT Patient Name: ALEC LAM [facility] Rec: [id number] [facility] ANATOMIC PATHOLOGY [address] [place], [place] [address] [facility] RENNY DIGITAL SCREEN AUGM ENTED BILATERALon 11-02-2022 No mammographic evidence of malignancy BIRADS: BIRADS - CATEGORY 1 Negative. Normal interval follow-up is recommended in 12 months. OVERALL ASSESSMENT - NEGATIVE A letter of notification will be sent to the patient regarding the results. [employer] recommends annual mammograms for women 40 years and older. [facility] CONSOLIDATED EXAMINATION: BREAST SCREENING MAMMOGRAM WITH TOMOSYNTHESIS, 11/02/2022 [...] in either breast. Bilateral implants appear stable. [facility] CONSOLIDATED Radiology Study observation (narrative) [employer] Phone: [facility] RENNY DIGITAL SCREEN AUGM ENTED BILATERALOrdered By: Kevin Lopez on 11-02-2022 [facility] Phone: US THYROIDon 07-16-2022 Essentially unremarkable thyroid ultrasound [facility] CONSOLIDATED EXAMINATION: THYROID ULTRASOUND 07/16/2022 COMPARISON: None. HISTORY: ORDERING SYSTEM PROVIDED HISTORY: Thyromegaly TECHNOLOGIST PROVIDED HISTORY: This procedure can be scheduled via [employer]. Access your MyChart account by visiting [employer]. FINDINGS: Right thyroid lobe: 12.1 x 13.3 [...] in the imaged portions of the neck. [facility] RIS CONSOLIDATED Zay Oseguera MD - 07/16/2022 EXAMINATION: THYROID ULTRASOUND 07/16/2022 COMPARISON: None. HISTORY: ORDERING SYSTEM PROVIDED HISTORY: Thyromegaly TECHNOLOGIST PROVIDED HISTORY: This procedure can be scheduled via [employer]. Access your [employer] account by visiting [employer]. FINDINGS: Right thyroid lobe: 12.1 x 13.3 [...] the neck. IMPRESSION: Essentially unremarkable thyroid ultrasound [employer] Phone: Radiology Study observation (narrative) [employer] Phone: THYROIDOrdered By: Zay salinas on 07-16-2022 [employer] Phone: Otheron 05-12-2019 Direct Exam Positive Abnormal [facility] VAGINITIS DNA PROBEon 2018 Direct Exam Negative [facility]ound Direct Exam Method of testing is a DNA probe intended for detection and identification of Tiburcio species, Gardnerella vaginalis, and Trichomonas vaginalis nucleic acid in vaginal fluid specimens from patients with symptoms of vaginitis/vaginosis. [place] Interpretation and review of laboratory results Abnormal [place] Special Requests NOT REPORTED [place] Specimen Description .VAGINA [place] Vital Signs Date Time Vital Sign Value Performing Clinician Lucio nguyen 08-20-2024 13:13-0500 Body temperature 95.9 [degF] Mth 03 [facility] 08-20-2024 13:13-0500 Diastolic blood pressure 78 mm[Hg] Mth 03 [facility] 08-20-2024 13:13-0500 Heart rate 79 /min [facility] 03 [facility] 08-20-2024 13:13-0500 Respiratory rate 20 /min [facility] 03 [facility] 08-20-2024 13:13-0500 Systolic blood pressure 148 mm[Hg] Mth 03 [facility] 08-12-2024 15:23-0500 Body temperature 96.49 [degF] Mth 03 [facility] 08-12-2024 15:23-0500 Diastolic blood pressure 71 mm[Hg] Mth 03 [facility] 08-12-2024 15:23-0500 Heart rate 73 /min [facility] 03 [facility] 08-12-2024 15:23-0500 Respiratory rate 18 /min [facility] 03 [facility] 08-12-2024 15:23-0500 Systolic blood pressure 127 mm[Hg] Mth 03 [facility] 08-03-2024 13:53-0500 Body temperature 96.8 [degF] [facility] 03 [facility] 08-03-2024 13:53-0500 Diastolic blood pressure 79 mm[Hg] Mth 03 [facility] 08-03-2024 13:53-0500 Heart rate 77 /min [facility] 03 [facility] [place] 08-03-2024 13:53-0500 Respiratory rate 20 /min [facility] 03 [facility] [place] 08-03-2024 13:53-0500 Systolic blood pressure 132 mm[Hg] Mth 03 [facility] [place] 07-22-2024 15:48-0500 Body temperature 95.79 [degF] [facility] 03 [facility] 07-22-2024 15:48-0500 Diastolic blood pressure 78 mm[Hg] Mth 03 [facility] [place] 07-22-2024 15:48-0500 Heart rate 81 /min Mth 03 [facility] [place] 07-22-2024 15:48-0500 Respiratory rate 20 /min Mth 03 [facility] [place] 07-22-2024 15:48-0500 Systolic blood pressure 137 mm[Hg] Mth 03 [facility] [place] 07-16-2024 13:18-0500 Body temperature 96.69 [degF] Mth 03 [facility] 07-16-2024 13:18-0500 Diastolic blood pressure 88 mm[Hg] Mth 03 [facility] [place] 07-16-2024 13:18-0500 Heart rate 78 /min Mth 03 [facility] [place] 07-16-2024 13:18-0500 Respiratory rate 20 /min Mth 03 [facility] [place] 07-16-2024 13:18-0500 Systolic blood pressure 124 mm[Hg] Mth 03 [facility] [place] 07-09-2024 13:25-0500 Body temperature 97 [degF] Mth 03 [facility] 07-09-2024 13:25-0500 Diastolic blood pressure 89 mm[Hg] Mth 03 [facility] 07-09-2024 13:25-0500 Heart rate 77 /min Mth 03 Arturo [facility] [place] 07-09-2024 13:25-0500 Respiratory rate 18 /min Mth 03 [facility] 07-09-2024 13:25-0500 Systolic blood pressure 143 mm[Hg] Mth 03 [facility] [place] 07-01-2024 15:20-0500 Body temperature 98.2 [degF] Mth 03 [facility] [place] 07-01-2024 15:20-0500 Diastolic blood pressure 73 mm[Hg] Mth 03 [facility] 07-01-2024 15:20-0500 Heart rate 77 /min Mth 03 [facility] [place] 07-01-2024 15:20-0500 Respiratory rate 18 /min Mth 03 [facility] [place] 07-01-2024 15:20-0500 Systolic blood pressure 131 mm[Hg] Mth 03 Bon [facility] [place] 06-25-2024 13:20-0500 Body temperature 96.69 [degF] Mth 03 [facility] [employer] [facility] [place] 06-25-2024 13:20-0500 Diastolic blood pressure 81 mm[Hg] Mth 03 Arturo [facility] [place] 06-25-2024 13:20-0500 Heart rate 74 /min Mth 03 [facility] [employer] [facility] [place] 06-25-2024 13:20-0500 Respiratory rate 18 /min Mth 03 [facility] [employer] [facility] [place] 06-25-2024 13:20-0500 Systolic blood pressure 126 mm[Hg] Mth 03 [facility] [place] 06-18-2024 13:18-0500 Body temperature 96.3 [degF] Mth 03 Arturo [facility] [place] 06-18-2024 13:18-0500 Diastolic blood pressure 77 mm[Hg] Mth 03 [facility] [place] 06-18-2024 13:18-0500 Heart rate 70 /min [facility] 03 [facility] [place] 06-18-2024 13:18-0500 Respiratory rate 20 /min [facility] 03 [facility] [employer] [facility] [place] 06-18-2024 13:18-0500 Systolic blood pressure 129 mm[Hg] [facility] 03 [facility] [place] 06-08-2024 13:30-0500 Diastolic blood pressure 76 mm[Hg] VITALY Adrian MD Work Phone: [facility] [place] 06-08-2024 13:30-0500 Heart rate 73 /min VITALY Adrian MD Work Phone: [facility] [place] 06-08-2024 13:30-0500 Respiratory rate 24 /min VITALY Adrian MD Work Phone: [facility] [place] 06-08-2024 13:30-0500 SaO2% (BldA) [Mass fraction] 98 % VITALY Adrian MD Work Phone: [facility] [place] 06-08-2024 13:30-0500 Systolic blood pressure 120 mm[Hg] VITALY Adrian MD Work Phone: [facility] [place] 06-08-2024 11:44-0500 Body temperature 97.7 [degF] VITALY Adrian MD Work Phone: [facility] [employer] [place] 06-08-2024 07:36-0500 Body height 170.2 cm VITALY Adrian MD Work Phone: [facility] [place] 06-08-2024 07:36-0500 Body mass index (BMI) [Ratio] 27.57 kg/m2 VITALY Adrian MD Work Phone: [facility] [employer] [place] 06-08-2024 07:36-0500 Body weight 79.83 kg VITALY Adrian MD Work Phone: [facility] [employer] [place] 05-21-2024 13:18-0400 Body temperature 96.91 [degF] [facility] 03 [employer] [facility] [place] 05-21-2024 13:18-0400 Diastolic blood pressure 84 mm[Hg] [facility] 03 [facility] [employer] [place] 05-21-2024 13:18-0400 Heart rate 76 /min [facility] 03 [facility] [employer] [place] 05-21-2024 13:18-0400 Respiratory rate 20 /min [facility] 03 [facility] [employer] [facility] [place] 05-21-2024 13:18-0400 Systolic blood pressure 142 mm[Hg] [facility] 03 [facility] [employer] [facility] [place] 04-07-2024 13:15-0400 Body temperature 97.59 [degF] [facility] 03 [facility] [employer] [facility] [place] 04-07-2024 13:15-0400 Diastolic blood pressure 84 mm[Hg] [facility] 03 [facility] [place] 04-07-2024 13:15-0400 Heart rate 75 /min [facility] 03 [facility] [employer] [place] 04-07-2024 13:15-0400 Respiratory rate 18 /min [facility] 03 [facility] [employer] [facility] [place] 04-07-2024 13:15-0400 Systolic blood pressure 130 mm[Hg] Mth 03 [facility] [employer] [place] 03-31-2024 13:10-0400 Body temperature 97.11 [degF] [facility] 03 [facility] [employer] [facility] [place] 03-31-2024 13:10-0400 Diastolic blood pressure 71 mm[Hg] Mth 03 [facility] [employer] [place] 03-31-2024 13:10-0400 Heart rate 80 /min Mth 03 [facility] 03-31-2024 13:10-0400 Respiratory rate 20 /min Mth 03 [facility] 03-31-2024 13:10-0400 Systolic blood pressure 128 mm[Hg] Mth 03 [facility] [place] 03-17-2024 13:18-0400 Body temperature 97.11 [degF] Mth 03 [facility] 03-17-2024 13:18-0400 Diastolic blood pressure 68 mm[Hg] Mth 03 [facility] 03-17-2024 13:18-0400 Heart rate 73 /min Mth 03 [facility] [employer] [facility] [place] 03-17-2024 13:18-0400 Respiratory rate 20 /min Mth 03 [facility] 03-17-2024 13:18-0400 Systolic blood pressure 139 mm[Hg] Mth 03 [facility] 03-10-2024 13:15-0400 Body temperature 97.3 [degF] Mth 03 [facility] 03-10-2024 13:15-0400 Diastolic blood pressure 71 mm[Hg] Mth 03 [facility] [place] 03-10-2024 13:15-0400 Heart rate 68 /min Mth 03 [facility] [place] 03-10-2024 13:15-0400 Respiratory rate 20 /min Mth 03 [facility] 03-10-2024 13:15-0400 Systolic blood pressure 125 mm[Hg] Mth 03 [facility] [place] 11-21-2023 13:25-0400 Body temperature 98.01 [degF] Mth 01 [facility] 11-21-2023 13:25-0400 Diastolic blood pressure 79 mm[Hg] Mth 01 [facility] [employer] [facility] [place] 11-21-2023 13:25-0400 Heart rate 67 /min Mth 01 [facility] 11-21-2023 13:25-0400 Respiratory rate 16 /min Mth 01 [facility] 11-21-2023 13:25-0400 Systolic blood pressure 149 mm[Hg] Mth 01 [facility] [employer] [facility] [place] 09-24-2023 13:15-0500 Body temperature 97.9 [degF] Mth 01 [facility] 09-24-2023 13:15-0500 Diastolic blood pressure 72 mm[Hg] [facility] 01 ARTURO GARCES [employer] [place] 09-24-2023 13:15-0500 Heart rate 72 /min [facility] 01 ARTURO Franklin [place] 09-24-2023 13:15-0500 Respiratory rate 18 /min [facility] 01 [facility] SECCHRISTIAN WILSON [place] 09-24-2023 13:15-0500 Systolic blood pressure 123 mm[Hg] [facility] 01 ARTURO [facility] 08-26-2023 13:13-0500 Body temperature 96.8 [degF] [facility] 03 ARTURO SECCHRISTIAN KATIE [place] 08-26-2023 13:13-0500 Diastolic blood pressure 90 mm[Hg] [facility] 03 [facility]URO [facility] [place] 08-26-2023 13:13-0500 Heart rate 71 /min [facility] 03 ARTURO [employer] 08-26-2023 13:13-0500 Respiratory rate 20 /min [facility] 03 ARTURO [employer] KATIE [place] 08-26-2023 13:13-0500 Systolic blood pressure 143 mm[Hg] [facility] 03 ARTURO [employer] [place] Encounters Encounter Date Encounter Type Care Provider Facility Start: 08-20-2024 End: 08-20-2024 ambulatory [facility]ULA [facility] Start: 08-20-2024 End: 08-20-2024 Subsequent hospital visit by physician [facility] Op Treatment Rm 03 [facility] Start: 08-12-2024 End: 08-12-2024 ambulatory ANA PAULA W MIGHT [facility] Start: 08-12-2024 End: 08-12-2024 Subsequent hospital visit by physician [facility] Op Treatment 03 [facility] Start: 08-03-2024 End: 08-03-2024 ambulatory ANA PAULA W MIGHT [facility] Start: 08-03-2024 End: 08-03-2024 Subsequent hospital visit by physician [facility] Op Treatment 03 [facility] Start: 07-22-2024 End: 07-22-2024 ambulatory ANA PAULA W MIGHT [facility] Start: 07-22-2024 End: 07-22-2024 Subsequent hospital visit by physician [facility] Op Treatment Rm 03 [facility] Start: 07-16-2024 End: 07-16-2024 ambulatory ANA PAULA W MIGHT [facility] Start: 07-16-2024 End: 07-16-2024 Subsequent hospital visit by physician [facility] Op Treatment Rm 03 [facility] ([facility] Start: 07-09-2024 End: 07-09-2024 ambulatory ANA PAULA W MIGHT [facility] Start: 07-09-2024 End: 07-09-2024 Subsequent hospital visit by physician [facility] Op Treatment Rm 03 [facility] Start: 07-01-2024 End: 07-01-2024 ambulatory ANA PAULA W MIGHT [facility] Start: 07-01-2024 End: 07-01-2024 Subsequent hospital visit by physician [facility] Op Treatment Rm 03 [facility] ([facility] Start: 06-25-2024 End: 06-25-2024 ambulatory ANA PAULA W MIGHT [facility] Start: 06-25-2024 End: 06-25-2024 Subsequent hospital visit by physician [facility] Op Treatment Rm 03 [facility] ([facility] Start: 06-18-2024 End: 06-18-2024 ambulatory ANA PAULA W MIGHT [facility] Start: 06-18-2024 End: 06-18-2024 Subsequent hospital visit by physician [facility] Op Treatment Rm 03 [facility] ([facility] Start: 06-11-2024 End: 06-11-2024 ambulatory Ana Paula Milligan APRN-VAMP THROATER Facility:[facility] Start: 06-08-2024 End: 06-08-2024 [facility] Start: 06-08-2024 End: 06-08-2024 Subsequent hospital visit by physician [facility] [place] Comment on above: Pain following surge ry or procedure (Primary Dx) Start: 06-03-2024 End: 06-03-2024 ambulatory ANA PAULA W MIGHT [facility] Start: 06-03-2024 End: 06-03-2024 Subsequent hospital visit by physician Ana Paula Milligan SENIOR LOGISTICS MANAGER - VAMP THROATER Work Phone: [facility] EKG Comment on above: Abnormal ECG Start: 05-26-2024 End: 05-26-2024 ambulatory ANA PAULA W MIGHT [facility] Start: 05-22-2024 End: 05-22-2024 ambulatory ANA PAULA W MIGHT [facility] Start: 05-22-2024 Encounter for other preprocedural examination ANA PAULA MILLIGAN [facility] Start: 05-22-2024 End: 05-22-2024 Patient encounter status Ana Paula Milligan SENIOR LOGISTICS MANAGER - VAMP THROATER Work Phone: [facility] Start: 05-22-2024 End: 05-22-2024 Subsequent hospital visit by physician Ana Paula Milligan SENIOR LOGISTICS MANAGER - VAMP THROATER Work Phone: [facility] Draw Comment on above: Pre-op testing Start: 05-21-2024 End: 05-21-2024 ambulatory ANA PAULA W MIGHT [facility] Start: 05-21-2024 End: 05-21-2024 Subsequent hospital visit by physician [facility] Op Treatment 03 [facility] ([facility]) Start: 05-14-2024 End: 05-14-2024 ambulatory ANA PAULA W MIGHT [facility] Start: 05-05-2024 End: 05-05-2024 ambulatory ANA PAULA W MIGHT [facility] Start: 04-28-2024 End: 04-28-2024 ambulatory ANA PAULA W MIGHT [facility] Start: 04-21-2024 End: 04-21-2024 ambulatory ANA PAULA W MIGHT [facility] Start: 04-15-2024 End: 04-15-2024 ambulatory Ana Paula Louis Might SENIOR LOGISTICS MANAGER-VAMP THROATER Facility:[facility] Start: 04-08-2024 End: 04-10-2024 ambulatory ANA PAULA W MIGHT [facility] Start: 04-08-2024 End: 04-10-2024 Subsequent hospital visit by physician Judah Rios DPM Work Phone: [facility] Comment on above: Metatarsalgia, right foot Start: 04-07-2024 End: 04-07-2024 ambulatory ANA PUALA W MIGHT [facility] Start: 04-07-2024 End: 04-07-2024 Subsequent hospital visit by physician [facility] Op Treatment Rm 03 [facility] Start: 03-31-2024 End: 03-31-2024 ambulatory ANA PAULA W MIGHT [facility] Start: 03-31-2024 End: 03-31-2024 Subsequent hospital visit by physician [facility] Op Treatment Rm 03 [facility] ([facility] Start: 03-24-2024 End: 03-24-2024 ambulatory ANA PAULA W MIGHT [facility] Start: 03-17-2024 End: 03-17-2024 ambulatory ANA PAULA W MIGHT [facility] Start: 03-17-2024 End: 03-17-2024 Subsequent hospital visit by physician [facility] Op Treatment Rm 03 [facility] Start: 03-10-2024 End: 03-10-2024 ambulatory ANA PAULA W MIGHT [facility] Start: 03-10-2024 End: 03-10-2024 Subsequent hospital visit by physician [facility] Op Treatment Rm 03 [facility] Start: 03-03-2024 End: 03-03-2024 ambulatory ANA PAULA W MIGHT [facility] Start: 02-25-2024 End: 02-25-2024 ambulatory ANA PAULA W MIGHT [facility] Start: 02-18-2024 End: 02-18-2024 ambulatory Ana Paula Louis José SENIOR LOGISTICS MANAGER-VAMP THROATER Facility:[facility] Start: 02-05-2024 End: 02-05-2024 ambulatory Ana Paula Milligan SENIOR LOGISTICS MANAGER-VAMP THROATER Facility:[facility] Start: 02-04-2024 End: 02-04-2024 ambulatory Ana Paula Milligan SENIOR LOGISTICS MANAGER-VAMP THROATER Facility:[facility] Start: 01-31-2024 End: 01-31-2024 ambulatory Ana Paula Milligan SENIOR LOGISTICS MANAGER-VAMP THROATER Facility:[facility] Start: 01-28-2024 ambulatory Ana Paula Milligan SENIOR LOGISTICS MANAGER-VAMP THROATER Facility:[facility] Start: 01-28-2024 End: 01-28-2024 ambulatory Ana Paula Milligan SENIOR LOGISTICS MANAGER-VAMP THROATER Facility:[facility] Start: 01-14-2024 End: 01-14-2024 ambulatory ANA PAULA W MIGHT [facility] Start: 12-17-2023 End: 12-17-2023 ambulatory [facility] Start: 11-29-2023 End: 12-01-2023 ambulatory [facility] Start: 11-29-2023 End: 12-01-2023 Subsequent hospital visit by physician Jazzmine Palmer APRN - CNKerri Work Phone: [facility] Mammography Comment on above: Screening mammogram, encounter for Start: 11-21-2023 End: 11-21-2023 ambulatory [facility] Start: 11-21-2023 End: 11-21-2023 Subsequent hospital visit by physician [facility] Op Treatment 01 [facility] Start: 10-22-2023 End: 10-22-2023 ambulatory [facility] Start: 10-08-2023 End: 10-08-2023 ambulatory [facility] Start: 09-24-2023 End: 09-24-2023 ambulatory [facility] Start: 09-24-2023 End: 09-24-2023 Subsequent hospital visit by physician [facility] Op Treatment 01 [facility] Start: 08-26-2023 End: 08-26-2023 ambulatory [facility] Start: 08-26-2023 End: 08-26-2023 Subsequent hospital visit by physician [facility] Op Treatment 03 [facility] Start: 11-02-2022 End: 11-04-2022 Subsequent hospital visit by physician [facility] Mammography Room [facility] Mammography Comment on above: Screening mammogram, encounter for Start: 09-12-2022 End: 09-12-2022 Subsequent hospital visit by physician Ana Paula Lopez CNP Work Phone: [facility] Laboratory Comment on above: Screening for malign ant neoplasm of cervix; Acute vaginitis Start: 07-16-2022 End: 07-18-2022 Subsequent hospital visit by physician [facility] Ultrasound Room [facility] Ultrasound Comment on above: Thyromegaly Start: 05-23-2022 End: 05-23-2022 Subsequent hospital visit by physician Mac Roper PT [facility] Physical Therapy Comment on above: Arrived Start: 05-16-2022 End: 05-16-2022 Subsequent hospital visit by physician Mac Roper PT [facility] Physical Therapy Comment on above: Arrived Start: 05-14-2022 End: 05-14-2022 Subsequent hospital visit by physician Aakash Charles PTA [facility] Physical Therapy Comment on above: Arrived Start: 05-11-2022 End: 05-11-2022 Subsequent hospital visit by physician Aakash Charles PTA [facility] Physical Therapy Comment on above: Arrived Start: 05-10-2022 End: 05-10-2022 Subsequent hospital visit by physician Mac Roper PT [facility] Physical Therapy Comment on above: Arrived Start: 05-09-2022 End: 05-09-2022 Subsequent hospital visit by physician Wicho Simmons PT [facility] Physical Therapy Start: 05-31-2020 End: 05-31-2020 Subsequent hospital visit by physician Tomás [place] [facility] Laboratory Comment on above: Screening for cervic al cancer Start: 10-01-2019 End: 10-01-2019 Subsequent hospital visit by physician Tomás [place] [facility] Laboratory Comment on above: Acute vaginitis Start: 05-12-2019 End: 05-12-2019 [facility] [place] [facility]: Acute vaginitis Procedures Date Procedure Procedure Detail Performing Clinician Start: 06-03-2024 Ecg routine ecg w/le ast 12 lds w/i&r Ana Paula W José SCHERERN - VAMP THROATER Work Phone: Start: 05-22-2024 Ecg routine ecg w/le ast 12 lds w/i&r A Mike Adrian MD Work Phone: Start: 05-22-2024 Basic metabolic pane l calcium total A Mike Adrian MD Work Phone: Start: 04-08-2024 Mri lower extrem oth /thn jt w/o contr matrl Judah Rios DPM Work Phone: Start: 11-29-2023 Screening mammograph y bi 2-view breast inc cad Jazzmine Palmer SENIOR LOGISTICS MANAGER - CNM Work Phone: Start: 10-08-2023 Microscopic observat ion [Identifier] in Cervix by Cyto stain Mth 01 Start: 11-02-2022 Screening mammograph y bi 2-view breast inc cad Jazzmine Skinner Spencer SENIOR LOGISTICS MANAGER - CNM Work Phone: Start: 09-12-2022 Microscopic observat ion [Identifier] in Cervix by Cyto stain [facility] Start: 07-16-2022 Us soft tissue head & neck real time imge garrisonkerri Milligan SENIOR LOGISTICS MANAGER - VAMP THROATER Work Phone: Start: 09-05-2021 Microscopic observat ion [Identifier] in Cervix by Cyto stain Calebbladimir Judson PT Start: 05-12-2019 Iadna tiburcio specie s direct probe tq Jazzmine Palmer Work Phone: Plan of Treatment Date Care Activity Detail Author Start: 02-11-2029 Lipid panel Lipids [facility] Start: 11-05-2028 DTaP/Tdap/Td vaccine (3 - Td or Tdap) DTaP/Tdap/Td vaccine (3 - Td or Tdap) [facility] Start: 11-05-2028 DTaP/Tdap/Td vaccine (3 - Td) DTaP/Tdap/Td vaccine (3 - Td) [place] Start: 02-02-2028 Lipid panel Lipids [facility] Start: 02-13-2027 Diabetes screen Diabetes screen [facility] Start: 12-29-2026 Lipid panel Lipids [facility] Start: 10-07-2026 Screening for malign ant neoplasm of cervix [facility] Start: 2026 Shingles Vaccine (1 of 2) Shingles Vaccine (1 of 2) [place] Start: 11-28-2025 Screening for malign ant neoplasm of breast Breast cancer screen [facility] Start: 09-12-2025 Screening for malign ant neoplasm of cervix [facility] Start: 2025 Screening for malign ant neoplasm of colon [facility] Start: 08-14-2025 COVID-19 Vaccine ( season) COVID-19 Vaccine ( season) [facility] Comment on above: Postponed from 04/05 (Unavailable) Start: 08-14-2025 Depression Screen Depression Screen [facility] Start: 08-14-2025 Hepatitis B vaccine (1 of 3 - 19+ 3-dose series) Hepatitis B vaccine (1 of 3 - 19+ 3-dose series) [facility] [employer] Comment on above: Postponed from 08/17 (Patient Refused) Start: 08-14-2025 Hepatitis C screening Hepatitis C sc reen [facility] [employer] Comment on above: Postponed from 08/17 (Patient Refused) Start: 08-14-2025 HIV screening HIV screen [facility] [employer] Comment on above: Postponed from 08/17 (Patient Refused) Start: 02-13-2025 COVID-19 Vaccine (#1) COVID-19 Vacci ne (#1) [facility] Comment on above: Postponed from 02/14 (Patient Refused) Start: 02-13-2025 COVID-19 Vaccine ( season) COVID-19 Vaccine ( season) [facility] Comment on above: Postponed from 04/05 (Patient Refused) Start: 02-12-2025 End: 02-12-2025 Patient encounter procedure 02/12/2025 8:00 AM EDT Office Visit [facility] [address] [place] [address] Ana Paula Milligan, SENIOR LOGISTICS MANAGER - VAMP THROATER [address] [place] [address] 6 months [facility] Comment on above: 6 months Start: 02-01-2025 Influenza vaccination Flu vaccine (# 1) [facility] Comment on above: Postponed from 03/05 (Unavailable) Start: 09-17-2024 End: 09-17-2024 Patient encounter procedure 09/17/2024 1:15 PM EST Appointment [facility] [address] [place] [address] Allergy [facility] ([facility]) Comment on above: Allergy Start: 09-05-2024 Screening for malign ant neoplasm of cervix [facility] Start: 09-02-2024 End: 09-02-2024 Patient encounter procedure 09/02/2024 3:45 PM EST Office Visit [facility] [address] [place], [place] [id number] [place] [address] [place] [address] Dr Beck patient-f/u remove saline implants bilaterally and placement of new saline implants with gonzales pattern mastopexy and partial capsulectomy sx on 06/08/2024 [facility] Comment on above: Dr Beck patient-f/u rem ove saline implants bilaterally and placement of new saline implants with gonzales pattern mastopexy and partial capsulectomy sx on 06/08/2024 Start: 08-31-2024 End: 08-31-2024 Patient encounter procedure 08/31/2024 3:45 PM EST Office Visit [facility] [address] [place] [address] [place] [address] [place], [place] [id number] f/u remove saline implants bilaterally and placement of new saline implants with gonzales pattern mastopexy and partial capsulectomy sx on 06/08/2024 [facility] [facility] Comment on above: f/u remove saline im plants bilaterally and placement of new saline implants with gonzales pattern mastopexy and partial capsulectomy sx on 06/08/2024 Start: 08-20-2024 End: 08-20-2024 Patient encounter procedure 08/20/2024 1:15 PM EST Appointment [facility] (MOB) [address] [place] [address] [phone] Allergy [facility] (MOB) Comment on above: Allergy Start: 08-16-2024 Depression Screen Depression Screen [facility] Start: 08-14-2024 End: 08-14-2024 Patient encounter procedure [facility] Comment on above: 6 month check Start: 08-12-2024 End: 08-12-2024 Patient encounter procedure 08/12/2024 3:15 PM EST Appointment [facility] (MOB) [address] [place], [place] [phone] Allergy [facility] (MOB) Comment on above: Allergy Start: 08-03-2024 End: 08-03-2024 Patient encounter procedure 08/03/2024 2:00 PM EST Appointment [facility] (MOB) [address] [place] [address] [phone] Allergy [facility] (MOB) Comment on above: Allergy Start: 08-02-2024 Hepatitis B vaccine (1 of 3 - 19+ 3-dose series) Hepatitis B vaccine (1 of 3 - 19+ 3-dose series) [facility] Comment on above: Postponed from 08/17 (Patient Refused) Start: 08-02-2024 Hepatitis B vaccine (1 of 3 - 3-dose series) Hepatitis B vaccine (1 of 3 - 3-dose series) [facility] Comment on above: Postponed from 08/17 (Patient Refused) Start: 08-02-2024 Hepatitis C screening Hepatitis C sc reen [facility] Comment on above: Postponed from 08/17 (Patient Refused) Start: 08-02-2024 HIV screening [facility] Comment on above: Postponed from 08/17 (Patient Refused) Start: 08-02-2024 Influenza [facility] Comment on above: Postponed from 03/05 (Patient Refused) Postponed from 03/05 (Patient Refused) Start: 07-22-2024 End: 07-22-2024 Patient encounter procedure 07/22/2024 3:45 PM EST Appointment [facility] (MOB) [address] [place] [address] [phone] Allergy [facility] (MOB) Comment on above: Allergy Start: 07-16-2024 End: 07-16-2024 Patient encounter procedure 07/16/2024 1:15 PM EST Appointment [facility] (MOB) [address] [place] [phone] Allergy [facility] (MOB) Comment on above: Allergy Start: 07-15-2024 End: 07-15-2024 Patient encounter procedure 07/15/2024 8:30 AM EST Office Visit [facility] [address] [facility] [place] [address] [place] [address] [facility] [address] [place] [phone] f/u remove saline implants bilaterally and placement of new saline implants with gonzales pattern mastopexy and partial capsulectomy sx on 06/08/2024 [facility] Comment on above: f/u remove saline im plants bilaterally and placement of new saline implants with gonzales pattern mastopexy and partial capsulectomy sx on 06/08/2024 Start: 07-09-2024 End: 07-09-2024 Patient encounter procedure 07/09/2024 1:15 PM EST Appointment [facility] (MOB) [address] [place] [phone] Allergy [facility] ([facility] Comment on above: Allergy Start: 07-06-2024 End: 07-06-2024 Patient encounter procedure 07/06/2024 4:00 PM EST Office Visit [facility] [address] [facility] [place] [phone] [place] [address] [facility] [facility] [address] [facility] [place] [address] f/u remove saline implants bilaterally and placement of new saline implants with gonzales pattern mastopexy and partial capsulectomy sx on 06/08/2024 [facility] Comment on above: f/u remove saline im plants bilaterally and placement of new saline implants with gonzales pattern mastopexy and partial capsulectomy sx on 06/08/2024 Start: 07-01-2024 End: 07-01-2024 Patient encounter procedure 07/01/2024 3:10 PM EST Appointment [facility] (MOB) [address] [place] [phone] [facility] Comment on above: Allergy Start: 06-25-2024 End: 06-25-2024 Patient encounter procedure 06/25/2024 1:15 PM EST [facility] [address] [place] [address] [phone] [facility] Comment on above: Allergy Start: 06-18-2024 End: 06-18-2024 Patient encounter procedure 06/18/2024 1:15 PM EST [facility]ment [facility] [address] [place] [phone] [facility] Comment on above: Allergy Start: 06-15-2024 End: 06-15-2024 Patient encounter procedure 06/15/2024 4:00 PM EST Office Visit [facility] [address] [facility]. [address] [place] [address] [place] [address] [facility] [address] [place] [address] f/u remove saline implants bilaterally and placement of new saline implants with gonzales pattern mastopexy and partial capsulectomy sx on 06/08/2024 [facility] Comment on above: f/u remove saline im plants bilaterally and placement of new saline implants with gonzales pattern mastopexy and partial capsulectomy sx on 06/08/2024 Start: 06-08-2024 End: 06-08-2024 Admission to same day surgery center 06/08/2024 8:30 AM EST - 06/08/2024 11:30 AM EST Surgery [facility] [address] [facility] [address] [place] [address] [facility] [address] [place] [address] COSMETC REMOVAL BILATERAL OLD SALINE IMPLANTS AND REPLACEMENT WITH BILATERAL NEW SALINE IMPLANTS WITH GONZALES PATTERN MASTOPEXY AND PARTIAL CAPSULECTOMY [facility] [place] Comment on above: COSMETC REMOVAL BILA TERAL OLD SALINE IMPLANTS AND REPLACEMENT WITH BILATERAL NEW SALINE IMPLANTS WITH GONZALES PATTERN MASTOPEXY AND PARTIAL CAPSULECTOMY Start: 06-08-2024 End: 06-08-2024 Anesthesia consultation 06/08/2024 8:30 AM EST [place]est[place] [address] [address] Jacob Prasad MD [address] [facility] [place] [address] [place] [address] [facility] [place] Start: 06-08-2024 End: 06-08-2024 Mammaplasty augmentation w/prosthetic implant [facility] Start: 06-08-2024 Subsequent hospital visit by physician 06/08/2024 8:30 AM EST Hospital [place] [address] [place] [address] [place] [address] [facility] [address] [place] [address] [facility] [place] Start: 05-27-2024 End: 05-27-2024 Patient encounter procedure 05/27/2024 3:45 PM EDT Appointment Count includes the [facility] Pre-Admit Testing [address] [facility] [address] [place] [address] COSMETIC PAT FOR DOS 06/08 @ [facility] OR - DR ADRIAN Count includes the [facility] Pre-Admit Testing Comment on above: COSMETIC PAT FOR DOS 06/08 @ [facility] OR - DR ADRIAN Start: 05-26-2024 End: 05-26-2024 Patient encounter procedure 05/26/2024 1:15 PM EDT Appointment [facility] (MOB) [address] [place] [phone] Allergy [facility] ([facility] Comment on above: Allergy Start: 05-17-2024 Screening for malign ant neoplasm of colon [facility] Start: 04-21-2024 End: 04-21-2024 Patient encounter procedure 04/21/2024 1:15 PM EDT Appointment [facility] (MOB) [address] [place], [place] [phone] Allergy [facility] (MOB) Comment on above: Allergy Start: 04-08-2024 End: 04-08-2024 Patient encounter procedure 04/08/2024 8:30 AM EDT Appointment [facility] [address] [place] [address] [phone] Judah Rios, DPKerri [address] [place] [address] MEDIA/PT [facility] Comment on above: MEDIA/PT Start: 04-07-2024 End: 04-07-2024 Patient encounter procedure 04/07/2024 1:15 PM EDT Appointment [facility] (MOB) [address] [place], [place] [phone] Allergy [facility] (MOB) Comment on above: Allergy Start: 04-05-2024 COVID-19 Vaccine ( season) COVID-19 Vaccine ( season) [facility] Start: 03-24-2024 End: 03-24-2024 Patient encounter procedure 03/24/2024 1:15 PM EDT Appointment [facility] (MOB) [address] [place] [address] [phone] Allergy [facility] (MOB) Comment on above: Allergy Start: 03-17-2024 End: 03-17-2024 Patient encounter procedure 03/17/2024 1:15 PM EDT Appointment [facility] (MOB) [address] [place] [phone] Allergy [facility] (MOB) Comment on above: Allergy Start: 03-05-2024 Influenza vaccination Flu vaccine (# 1) [facility] Start: 02-02-2024 COVID-19 Vaccine (#1) COVID-19 Vacci ne (#1) [facility] Comment on above: Postponed from 02/14 (Patient Refused) Start: 01-31-2024 End: 01-31-2024 Patient encounter procedure 01/31/2024 8:20 AM EDT Office Visit [facility] [place] [address] [place] [id number] Ana Paula Milligan, SENIOR LOGISTICS MANAGER - VAMP THROATER [address] [facility] [place] [address] 6 month [facility] Comment on above: 6 month Start: 12-17-2023 End: 12-17-2023 Patient encounter procedure 12/17/2023 1:15 PM EDT Appointment [facility] ([facility] [address] [phone] All[address] injections. [address] Spears [facility] ([facility] Comment on above: Allergy injections. Dr Spears Start: 12-11-2023 End: 12-11-2023 Patient encounter procedure 12/11/2023 2:30 PM EDT Initial consult [facility] [address] [place], [place] [phone] f/u cosmetic consult implant removal and replace (no fee) [facility] Comment on above: f/u cosmetic consult implant removal and replace (no fee) Start: 11-29-2023 End: 11-29-2023 Patient encounter procedure 11/29/2023 8:00 AM EDT Appointment [facility] [address] [place], [place] [phone] Jazzmine Palmer, SENIOR LOGISTICS MANAGER - CNM [address] [facility] [address] [facility] [phone] EPIC sched w/ patient [facility] Comment on above: EPIC sched w/ patien t Start: 11-27-2023 End: 11-27-2023 Patient encounter procedure 11/27/2023 3:00 PM EDT Initial consult [facility] [address] [place], [place] [phone] f/u cosmetic consult implant removal and replace (no fee) [facility] Comment on above: f/u cosmetic consult implant removal and replace (no fee) Start: 10-22-2023 End: 10-22-2023 Patient encounter procedure 10/22/2023 1:15 PM EDT [facility] [address] [place] [phone] Spears [facility] Comment on above: Allergy injections. Dr Spears Start: 10-08-2023 End: 10-08-2023 Patient encounter procedure 10/08/2023 2:45 PM EST Office Visit [facility] [place] [address] Jazzmine Palmer, SENIOR LOGISTICS MANAGER - [address] [place], [place] [phone] yearly [facility] Comment on above: yearly Start: 09-24-2023 End: 09-24-2023 Patient encounter procedure 09/24/2023 1:15 PM EST [facility]ment [facility] [address] [place] [phone] Spears [facility] Comment on above: Allergy injections. Dr Spears Start: 09-23-2023 End: 09-23-2023 Patient encounter procedure 09/23/2023 8:00 AM EST Office Visit [facility] Part of [address] [phone] Susanne Cruz [address] [place] [phone] genetic eval [facility] Part [facility] Comment on above: genetic eval Start: 07-31-2023 Depression Screen Depression Screen [facility] Start: 07-06-2023 Depression Screen Depression Screen [facility] Start: 05-29-2023 Influenza vaccination [facility] Comment on above: Postponed from 03/05 (Patient Refused) Postponed from 03/05 (Patient Refused) Start: 03-19-2023 Depression Screen Depression Screen [facility] Start: 01-04-2023 End: 01-04-2023 Patient encounter procedure 01/04/2023 Office Visit Primary Care Ana Paula Milligan, SENIOR LOGISTICS MANAGER - VAMP THROATER [address] [place] [address] [facility] Primary [facility] Start: 12-29-2022 COVID-19 Vaccine (#1) COVID-19 Vacci ne (#1) [facility] Comment on above: Postponed from 02/14 (Not Indicated) Start: 12-29-2022 Hepatitis C screening Hepatitis C sc reen [facility] Comment on above: Postponed from 08/17 (Patient Refused) Start: 12-29-2022 HIV screening HIV screen [facility] Comment on above: Postponed from 08/17 (Patient Refused) Start: 12-05-2022 End: 12-05-2022 Patient encounter procedure 12/05/2022 Office Visit General Surgery Cierra Orta I, DO [address] [facility] [address] [place] [address] [facility] Start: 09-12-2022 End: 09-12-2022 Patient encounter procedure 09/12/2022 Office Visit Obstetrics and Gynecology Jazzmine Palmer, SENIOR LOGISTICS MANAGER - CNM [address] [address] [facility] Start: 08-14-2022 End: 08-14-2022 Patient encounter procedure 08/14/2022 Office Visit Obstetrics and Gynecology Iva Osborne, DO [address] [place] [address] [facility] Start: 08-14-2022 End: 08-14-2022 Professional / ancillary services management 08/14/2022 Ancillary Procedure Obstetrics and Gynecology [facility] Start: 07-06-2022 End: 07-06-2022 Patient encounter procedure 07/06/2022 Office Visit Primary Care José, Ana Paula W, SENIOR LOGISTICS MANAGER - VAMP THROATER [address] [place] [address] [facility] [place] Start: 07-03-2022 Cervical cancer screen Cervical canc er screen [facility] [place], [place] Start: 07-03-2022 Screening for malign ant neoplasm of cervix [facility] Start: 06-05-2022 End: 06-05-2022 Patient encounter procedure 06/05/2022 Initial consult Obstetrics and Gynecology Iva Osborne, DO [address] [place] [address] [facility] Part of [facility] Start: 06-01-2022 End: 06-01-2022 Patient encounter procedure 06/01/2022 Appointment Physical Therapy 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 Charles, RICE FARMWORKER [facility] Start: 05-30-2022 End: 05-30-2022 Patient encounter procedure 05/30/2022 Appointment Physical Therapy Aakash Charles, [employer]ICE FARM[employer] [facility] Start: 05-28-2022 End: 05-28-2022 Patient encounter procedure 05/28/2022 Appointment Physical Therapy Aakash Charles, [employer]ARM[employer] [facility] Start: 05-25-2022 End: 05-25-2022 Patient encounter procedure 05/25/2022 Appointment Physical Therapy Wicho Simmons, PT [facility] Start: 05-24-2022 End: 05-24-2022 Patient encounter procedure [facility] Start: 05-23-2022 End: 05-23-2022 Patient encounter procedure 05/23/2022 Appointment Physical Therapy Mac Roper, PT [facility] Start: 05-18-2022 End: 05-18-2022 Patient encounter procedure 05/18/2022 Appointment Physical Therapy Aakash Charles, [employer] [facility] Start: 05-16-2022 End: 05-16-2022 Patient encounter procedure 05/16/2022 Appointment Physical Therapy Mac Roper, PT [facility] Start: 05-14-2022 End: 05-14-2022 Patient encounter procedure 05/14/2022 Appointment Physical Therapy Aakash Charles PTA [facility] Start: 05-11-2022 End: 05-11-2022 Patient encounter procedure 05/11/2022 Appointment Physical Therapy Aakash Charles PTA [facility] Start: 03-05-2022 Influenza vaccination Flu vaccine (# 1) [facility] Start: 2021 Screening for malign ant neoplasm of colon [facility] Start: 06-07-2021 End: 06-07-2021 Office Visit 06/07/2021 Office Visit Obstetrics and Gynecology Jazzmine Palmer APRN - JESÚS [address] [place], [place] [phone] [facility] Start: 06-15-2020 End: 06-15-2020 Ancillary Procedure [facility] Start: 05-12-2020 Diabetes screen Diabetes screen [place], [place] Comment on above: Postponed from 08/17 (Not Indicated) Start: 05-12-2020 HIV screen HIV screen [place], [place] Comment on above: Postponed from 08/17 (Patient Refused) Start: 05-12-2020 Influenza vaccination Flu vaccine (# 1) [place] Comment on above: Postponed from 04/05 (Patient Refused) Start: 05-12-2020 Lipid screen Lipid screen [place], [place] Comment on above: Postponed from 08/17 (Not Indicated) Start: 04-05-2020 Influenza vaccination Flu vaccine (# 1) [place] Start: 10-07-2019 End: 10-07-2019 Office Visit 10/07/2019 Office Visit Obstetrics and Gynecology Jazzmine Palmer, BRITTANY - JESÚS [address] [place] [address] [facility] Start: 2016 Diabetes screen Diabetes screen [place], [place] Start: 2016 Lipid panel Lipid screen [place], [place] Start: 1995 Hepatitis B vaccine (1 of 3 - 19+ 3-dose series) Hepatitis B vaccine (1 of 3 - 19+ 3-dose series) [facility] Start: 1994 Hepatitis C screening Hepatitis C sc reen [facility] Start: 1991 HIV screening HIV screen [facility] End: 10-01-2019 C.trachomatis N.gonorrhoeae DNA C.trachomatis N.gonorrhoeae DNA Microbiology Routine Acute vaginitis 1 Occurrences starting 10/01/2019 until 10/01/2019 [place] Comment on above: 1 Occurrences starti ng 10/01/2019 until 10/01/2019 C.trachomatis N.gonorrhoeae DNA C.trachomatis N.gonorrhoeae DNA Microbiology Routine Acute vaginitis 10/01/2019 12:11 PM [place] End: 10-01-2019 Culture, Genital Culture, Genital Microbiology Routine Acute vaginitis 1 Occurrences starting 10/01/2019 until 10/01/2019 [place] Comment on above: 1 Occurrences starti ng 10/01/2019 until 10/01/2019 Culture, Genital Culture, Genita l Microbiology Routine Acute vaginitis 10/01/2019 12:10 PM [place] End: 09-12-2022 Culture, Genital [facility] Work Phone: Comment on above: 1 Occurrences starti ng 09/12/2022 until 09/12/2022 End: 05-31-2020 Cytopathology procedure, preparation of smear, genital source [facility] Routine Screening for cervical cancer 1 Occurrences starting 05/31/2020 until 05/31/2020 [place] Comment on above: 1 Occurrences starti ng 05/31/2020 until 05/31/2020 End: 09-12-2022 Cytopathology procedure, preparation of smear, genital source [facility] Routine Screening for malignant neoplasm of cervix 1 Occurrences starting 09/12/2022 until 09/12/2022 [facility] [employer] Phone: Comment on above: 1 Occurrences starti ng 09/12/2022 until 09/12/2022 EKG 12 Lead EKG 12 Lead ECG Routine 05/22/2024 2:37 PM EDT [facility] [employer] Phone: EKG 12 lead EKG 12 lead ECG Routine Abnormal ECG 06/03/2024 3:24 PM EDT [facility] [employer] End: 05-12-2019 Fungus Culture Fungus Culture Microbiology Routine Acute vaginitis 1 Occurrences starting 05/12/2019 until 05/12/2019 [place] Comment on above: 1 Occurrences starti ng 05/12/2019 until 05/12/2019 Fungus Culture Fungus Culture Microbiology Routine Acute vaginitis 05/12/2019 6:14 PM EDT [place] [place] Initiate Oxygen Therapy Protocol Respiratory Care Routine As Needed until discontinued starting 06/08/2024 [facility] [employer] Phone: Comment on above: As Needed until disc ontinued starting 06/08/2024 End: 06-08-2024 , urine POCT , urine POCT Point of Care Testing Routine One Time for 1 Occurrences starting 06/08/2024 until 06/08/2024 [facility] [employer] Comment on above: One Time for 1 Occur rences starting 06/08/2024 until 06/08/2024 End: 10-01-2019 VAGINITIS DNA PROBE VAGINITIS DNA PROBE Microbiology Routine Acute vaginitis 1 Occurrences starting 10/01/2019 until 10/01/2019 [place] Comment on above: 1 Occurrences starti ng 10/01/2019 until 10/01/2019 VAGINITIS DNA PROBE VAGINITIS DN A PROBE Microbiology Routine Acute vaginitis 10/01/2019 12:10 PM EST [place] Immunizations Immunization Date Immunization Notes Care Provider Fa harriet 11-05-2018 tetanus toxoid, redu kirt diphtheria toxoid, and acellular pertussis vaccine, adsorbed Shaela Judson PT [facility] [employer] Phone: 02-26-2018 tetanus toxoid, redu kirt diphtheria toxoid, and acellular pertussis vaccine, adsorbed Shaela Judson PT [facility] [employer] Phone: 12-20-2011 pneumococcal polysaccharide vaccine, 23 valent Mac Roper PT ARTURO GARCES [facility] [employer] Work Phone: Payers Date Payer Category Payer Unknown [id number] 2021 Unknown [id number] 2021 Unknown 2020 Unknown [employer] Kerri [place] - EXCHANGE [id number] 2020-Present [phone] [address] [place] [id number] 2017 Unknown [employer] Kerri BERME[place] [address] xxxxxxxxxxxx 2017-Present [phone] [address] [place] [address] xxxxxxxxxxxx [id number] 1976 Unknown [id number] 2.16.840.1.460214.3.579.2. 1976 Unknown [id number] 2.16.840.1.301955.3.579.2. 1976 Unknown [id number] 2.16.840.1.798535.3.579.2. 1976 Unknown [id number] 2.16.840.1.433990.3.579.2. 1976 Unknown [id number] 2.16.840.1.528604.3.579.2. 1976 Unknown [id number] 2.16.840.1.185526.3.579.2. 1976 Unknown [id number] 2.16.840.1.805551.3.579.2.196 1976 Unknown [id number] 2.16.840.1.889192.3.579.2.196 1976 Unknown [id number] 2.16.840.1.010463.3.579.2.175 1976 Unknown [id number] 2.16.840.1.036119.3.579.2.173 1976 Unknown [id number] 2.16.840.1.041990.3.579.2.173 1976 Unknown [id number] 2.16.840.1.803016.3.579.2.173 1976 Unknown [id number] 2.16.840.1.213020.3.579.2.173 1976 Unknown [id number] 2.16.840.1.906492.3.579.2.173 1976 Unknown [id number] 2.16.840.1.577140.3.579.2.173 1976 Unknown [id number] 2.16.840.1.062507.3.579.2.173 1976 Unknown [id number] 2.16.840.1.004930.3.579.2.173 1976 Unknown [id number] 2.16.840.1.078835.3.579.2.173 1976 Unknown [id number] 2.16.840.1.999361.3.579.2.173 1976 Unknown [id number] 2.16.840.1.003689.3.579.2.173 1976 Unknown [id number] 2.16.840.1.439344.3.579.2.173 1976 Unknown [id number] 2.16.840.1.317052.3.579.2.173 1976 Unknown [id number] [id number] 1975 Unknown [id number] 2.16.840.1.322517.3.579.2.173 1975 Unknown [id number] 2.16.840.1.975372.3.579.2.173 1975 Unknown [id number] 2.16.840.1.166807.3.579.2.173 1975 Unknown [id number] 2.16.840.1.225683.3.579.2.173 1975 Unknown [id number] 2.16.840.1.298219.3.579.2.173 1975 Unknown [id number] 2.16.840.1.471359.3.579.2.173 1975 Unknown [id number] 2.16.840.1.470912.3.579.2.173 1975 Unknown [id number] 2.16.840.1.744007.3.579.2.173 1975 Unknown [id number] 2.16.840.1.992843.3.579.2.173 1975 Unknown [id number] 2.16.840.1.919090.3.579.2.173 1975 Unknown [id number] 2.16.840.1.509366.3.579.2.173 1975 Unknown [id number] 2.16.840.1.020956.3.579.2.173 1975 Unknown [id number] 2.16.840.1.666864.3.579.2.173 1975 Unknown [id number] 2.16.840.1.818102.3.579.2. 1975 Unknown [id number] 2.16.840.1.706921.3.579.2.173 1975 Unknown [id number] 2.16.840.1.575439.3.579.2.173 1975 Unknown [id number] 2.16.840.1.537458.3.579.2.173 1975 Unknown [id number] 2.16.840.1.438549.3.579.2.173 Social History Date Type Detail Facility Start: 10-01-2019 End: 02-20-2022 [facility] status [facility] [place] [place] Start: 10-01-2019 End: 02-17-2024 Alcohol intake Current drinker of alcohol (finding) [facility] [place] Start: 04-22-[address] Comment [address] [place], [place] Sex Assigned At Not on file [facility] [place] Start: 05-31-2020 End: 02-20-2022 Tobacco use and exposure [facility] Start: 1975 Sex [facility]igned At [facility] [place] Start: 05-12-2019 End: 06-08-2024 Alcohol intake Yes [facility] Start: 08-16-2023 End: 06-08-2024 History of Social function [facility] How hard is it for y ou to pay for the very basics like food, housing, medical care, and heating Not hard at all [facility] (I/We) worried alden er (my/our) food would run out before (I/we) got money to buy more. Never true [facility] At any time in the p ast 12 months, were you homeless or living in care home [including now]? No [facility] Start: 12-22-2019 Gender identity Identifies as female gender (finding) [facility] Start: 12-22-2019 Sexual orientation Heterosexual (fin ding) [facility] Start: 06-02-2024 End: 08-14-2024 Alcoholic beverage intake Ex-drinker (finding) [facility] Procedure Code Equipment Code Equipment Origin al Text Equipment Identifier Dates Implant Brst 300 330cc P41cm [id number] Nacl Styl 68mp Smooth - [id number] Start: 06-08-2024 Comment on above: Description: FILLED WITH 310CC 0.9% SODIUM CHLORIDE Implant Brst 300 330cc P41cm [id number] Nacl Styl 68mp [facility] - [id number] Start: 06-08-2024 Comment on above: Description: FILLED WITH 310CC 0.9% SODIUM CHLORIDE Clinical Notes 05-09-2022 to 08-20-2024 Discharge InstructionsRashmi Charles RN - 08/20/2024 1:15 PM ESTDischarge InstructionsYoko Young RN - 08/12/2024 3:23 PM ESTDischarge InstructionsDischarge InstructionsAttachments Note Date & Type Note Facility 08-20-2024 [facility] Discharg e instructions Rashmi Charles RN - 08/20/2024 1:36 PM EST Verbally reviewed discharge instructions for care and follow up. Previous print out of these instructions were given with prior treatment.Patient verbalized understanding of these instructions. Today's copy offered and declined. documented in this encounter [facility] 08-20-2024 History of Presen t illness Narrative Allergy injection flow sheet Identification of own vial of serum Delayed reaction URI with or without wheezing Time of injection Discharge time Yes No No 9081 3726 Injection Schedule Concentration Dose Location Vial Expiration Date Reviewed Red#a 0.5ml left yes Red#B 0.5ml right Injection given by: Yasmin CHOI Injection site checked upon discharge by: Yasmin CHOI Comments: no local Reminder: document all injections in the allergy binder. documented in this encounter [facility] 08-12-2024 [facility] Discharg e instructions Yoko Young RN - 08/12/2024 3:33 PM EST Verbally reviewed discharge instructions for care and follow up. Previous print out of these instructions were given with prior treatment.Patient verbalized understanding of these instructions. Today's copy offered and declined. documented in this encounter [facility] 08-12-2024 History of Presen t illness Narrative Allergy injection flow sheet Identification of own vial of serum Delayed reaction URI with or without wheezing Time of injection Discharge time Yes No No 1449 6191 Injection Schedule Concentration Dose Location Vial Expiration Date Reviewed RED A 0.45ML LEFT ARM YES RED B 0.45ML RIGHT ARM YES Injection given by: TONY CHOI Injection site checked upon discharge by: Stephenie YOUNG RN Comments: no local Reminder: document all injections in the allergy binder. documented in this encounter [facility] 08-03-2024 Hospital Discharg e instructions Rashmi Charles RN - 08/03/2024 3:10 PM EST Verbally reviewed discharge instructions for care and follow up. Previous print out of these instructions were given with prior treatment.Patient verbalized understanding of these instructions. Today's copy offered and declined. documented in this encounter [facility] 07-22-2024 [facility] Discharg e instructions Rashmi Charles RN - 07/22/2024 4:07 PM EST Verbally reviewed discharge instructions for care and follow up. Previous print out of these instructions were given with prior treatment.Patient verbalized understanding of these instructions. Today's copy offered and declined. documented in this encounter [facility] 07-22-2024 History of Presen t illness Narrative Allergy injection flow sheet Identification of own vial of serum Delayed reaction URI with or without wheezing Time of injection Discharge time Yes No No 4041 7510 Injection Schedule Concentration Dose Location Vial Expiration Date Reviewed Red#A 0.35ml left yes Red#B 0.35ml right Injection given by: Yasmin CHOI Injection site checked upon discharge by: S.Melvin RN Comments: no local Reminder: document all injections in the allergy binder. documented in this encounter [facility] 07-16-2024 [facility] Discharg e instructions Rashmi Charles RN [...] injection Discharge time Yes No No 1320 1350 Injection Schedule Concentration Dose Location Vial Expiration Date Reviewed Red#A 0.3ml left yes Red#B 0.3ml right Injection given by: Yasmin CHOI Injection site checked upon discharge by: Yasmin CHOI Comments: no local Reminder: document all injections in the allergy binder. documented in this encounter [facility] 07-09-2024 [facility] Discharg e instructions Yoko Young RN - 07/09/2024 1:43 PM EST [...] injection Discharge time Yes No No 1325 1355 Injection Schedule Concentration Dose Location Vial Expiration Date Reviewed Red A 0.25ml Left arm yes Red B 0.25ml Right arm yes Injection given by: TONY CHOI Injection site checked upon discharge by: TONY CHOI Comments: no local Reminder: document all injections in the allergy binder. documented in this encounter [facility] 07-01-2024 [facility] Discharg e instructions Renae Cisneros RN [...] of injection Discharge time Yes No No 1520 1550 Injection Schedule Concentration Dose Location Vial Expiration Date Reviewed Red vial A 0.2ml LA yes Red vial B 0.2 ml RA yes Injection given by: Renae Cisneros RN Injection site checked upon discharge by: Renae Cisneros RN Comments: no local Reminder: document all injections in the allergy binder. documented in this encounter [facility] 06-25-2024 [facility] Discharg e instructions Yoko Young RN [...] injection Discharge time Yes No No 1320 1350 Injection Schedule Concentration Dose Location Vial Expiration Date Reviewed Red A 0.15ml Left arm yes Red B 0.15ml Right arm yes Injection given by: TONY CHOI Injection site checked upon discharge by: TONY CHOI Comments: small local (LEFT ARM) Reminder: document all injections in the allergy binder. documented in this encounter [facility] 06-18-2024 [facility] Discharg e Rashmi Mathis RN - 06/18/2024 1:33 PM EST Verbally [...] of injection Discharge time Yes No No 1321 1341 Injection Schedule Concentration Dose Location Vial Expiration [...] this encounter [facility] 06-02-2024 [facility] Discharg e Noris Folwer RN - 06/02/2024 8:24 AM EDT BREAST [...] cannot be sent through Care Everywhere.scopolamine transdermal (Welsh)documented in this encounter [facility] 05-21-2024 [facility] Discharg e instructions Rashmi Charles RN - 05/21/2024 1:27 PM EDT Verbally [...] of injection Discharge time Yes No No 8091 3937 Injection Schedule Concentration Dose Location Vial Expiration Date Reviewed Yellow#A 0.4ml left yes Yellow#B 0.4ml right Injection given by: Yasmin CHOI Injection site checked upon discharge by: Yasmin CHOI Comments: no local Reminder: document all injections in the allergy binder. documented in this encounter [facility] 04-07-2024 [facility] Discharg e instructions Yoko Young RN - 04/07/2024 2:58 PM EDT Verbally reviewed discharge instructions for care and follow up. Previous print out of these instructions were given with prior treatment.Patient verbalized understanding of these instructions. Today's copy offered and declined. documented in this encounter [facility] 04-07-2024 History of Presen t illness Narrative Allergy injection flow sheet Identification of own vial of serum Delayed reaction URI with or without wheezing Time of injection Discharge time Yes No No 3720 3165 Injection Schedule Concentration Dose Location Vial Expiration Date Reviewed BLUE A 0.4ML LEFT ARM YES BLUE B 0.4ML RIGHT ARM YES Injection given by: Stephenie YOUNG RN Injection site checked upon discharge by: Stephenie YOUNG RN Comments: no local Reminder: document all injections in the allergy binder. documented in this encounter [facility] 03-31-2024 Hospital Discharg e instructions Rashmi Charles RN - 03/31/2024 1:37 PM EDT Verbally reviewed discharge instructions for care and follow up. Previous print out of these instructions were given with prior treatment.Patient verbalized understanding of these instructions. Today's copy offered and declined. documented in this encounter [facility] 03-31-2024 History of Presen t illness Narrative Allergy injection flow sheet Identification of own vial of serum Delayed reaction URI with or without wheezing Time of injection Discharge time Yes No No 1567 0527 Injection Schedule Concentration Dose Location Vial Expiration Date Reviewed Blue#A 0.2ml left yes Blue#B 0.2ml right Injection given by: Melvin Pate RN Injection site checked upon discharge by: Yasmin CHOI Comments: no local Reminder: document all injections in the allergy binder. documented in this encounter [facility] 03-17-2024 [facility] Discharg e instructions Rashmi Charles RN - 03/17/2024 2:07 PM EDT Verbally reviewed discharge instructions for care and follow up. Previous print out of these instructions were given with prior treatment.Patient verbalized understanding of these instructions. Today's copy offered and declined. documented in this encounter [facility] 03-17-2024 History of Presen t illness Narrative Allergy injection flow sheet Identification of own vial of serum Delayed reaction URI with or without wheezing Time of injection Discharge time Yes No No 1325 1340 Injection Schedule Concentration Dose Location Vial Expiration Date Reviewed Blue#A 0.05ML left yes Blue#B 0.05ml right Injection given by: Yasmin CHOI Injection site checked upon discharge by: Yasmin CHOI Comments: no local Reminder: document all injections in the allergy binder. documented in this encounter [facility] 03-10-2024 [facility] Discharg e instructions Rashmi Charles RN - 03/10/2024 1:23 PM EDT Verbally reviewed discharge instructions for care and follow up. Previous print out of these instructions were given with prior treatment.Patient verbalized understanding of these instructions. Today's copy offered and declined. documented in this encounter [facility] 03-10-2024 History of Presen t illness Narrative Allergy injection flow sheet Identification of own vial of serum Delayed reaction URI with or without wheezing Time of injection Discharge time Yes No No 6956 9618 Injection Schedule Concentration Dose Location Vial Expiration Date Reviewed Green#A 0.4ml left yes Green#B 0.4ml right Injection given by: Yasmin CHOI Injection site checked upon discharge by: Yasmin CHOI Comments: no local Reminder: document all injections in the allergy binder. documented in this encounter [facility] 11-21-2023 [facility] Discharg e instructions Renae Cisneros RN - 11/21/2023 2:02 PM EDT Verbally reviewed discharge instructions for care and follow up. Previous print out of these instructions were given with prior treatment.Patient verbalized understanding of these instructions. Today's copy offered and declined. documented in this encounter [facility] 11-21-2023 History of Presen t illness Narrative Allergy injection flow sheet Identification of own vial of serum Delayed reaction URI with or without wheezing Time of injection Discharge time Yes No No 1328 1358 Injection Schedule Concentration Dose Location Vial Expiration Date Reviewed Red vial A 0.5 ml LA yes Red vial B 0.5 ml RA yes Injection given by: Renae Cisneros RN Injection site checked upon discharge by: Renae Cisneros RN Comments: no local Reminder: document all injections in the allergy binder. documented in this encounter [facility] 09-24-2023 [facility] Discharg e instructions Yoko Young RN - 09/24/2023 1:21 PM EST Verbally reviewed discharge instructions for care and follow up. Previous print out of these instructions were given with prior treatment.Patient verbalized understanding of these instructions. Today's copy offered and declined. documented in this encounter [facility] 09-24-2023 History of Presen t illness Narrative Allergy injection flow sheet Identification of own vial of serum Delayed reaction URI with or without wheezing Time of injection Discharge time Yes No No 1320 1350 Injection Schedule Concentration Dose Location Vial Expiration Date Reviewed Red A 0.5ml Left arm yes Red B 0.5ml Right arm yes Injection given by: Stephenie YOUNG RN Injection site checked upon discharge by: Stephenie YOUNG RN Comments: no local Reminder: document all injections in the allergy binder. documented in this encounter [facility] 08-26-2023 Hospital Discharg e instructions Rashmi Charles RN - 08/26/2023 1:41 PM EST Verbally reviewed discharge instructions for care and follow up. Previous print out of these instructions were given with prior treatment.Patient verbalized understanding of these instructions. Today's copy offered and declined. documented in this encounter [facility] 08-26-2023 History of Presen t illness Narrative Allergy injection flow sheet Identification of own vial of serum Delayed reaction URI with or without wheezing Time of injection Discharge time Yes No No 7320 7268 Injection Schedule Concentration Dose Location Vial Expiration Date Reviewed Red#A 0.5ml left yes Red#B 0.5ml right Injection given by: Yasmin CHOI Injection site checked upon discharge by: Yasmin CHOI Comments: no local Reminder: document all injections in the allergy binder. 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 Retirement Goal 3: Pt to be able to sit for 8 hour shift without significant increase in pain to improve functional endurance. Retirement Goal 4: Pt to improve L Hip Strength to 5/5 to improve dynamic stability and reduce pain with ADLs. 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 Minutes Tracking: Time In: 1517 Time Out: 1557 Minutes: 40 Timed Code Treatment Minutes: 39 Minutes Mac Roper PT, DPT Date: 05/16/2022 documented in this encounter [facility] Phone: 05-10-2022 History of Presen t illness Narrative [facility] Outpatient Physical Therapy Daily Note Patient: Alec Simpson : 1975 CSN #: [id number] Referring Physician: Rasta Bain MD Date: 05/10/2022 Diagnosis: M54.16 Lumbar Radiculopathy Treatment Diagnosis: Lumbar Strain Onset Date: 03/07/22 PT Insurance Information: [facility] Total # of Visits Approved: 18 Per Physician Order Total # of Visits to Date: 3 No Show: 0 Canceled Appointment: 1 Pre-Treatment Pain: 4/10 Subjective: Patient reports about 4/10 soreness on the L PSIS and L greater trochanter. Was tender/sore after last session. No real difference in pain noted with estim. Exercises: Exercise 1: HEP: MET, Hip/Posterior chain stretching Exercise 4: bridges, PPT, SLR L LE x10 Exercise 5: piriformis stretch 10x5 Exercise 7: Scifit x8min L1.0 Exercise 8: Step stretches L HS and hip flexor [id number] Exercise 9: Supine L sciatic nerve glides 10x prox/distal Exercise 10: R sidelying L TFL stretch [id number] Exercise 11: MET to correct L innominate [...] pt required further clarification. Post Treatment Pain: 3/10 Plan Plan Frequency: 3x/week Plan weeks: 6 weeks Goals (Total # of Visits to Date: 3) Short Term Goals Time Frame for Short Term Goals: 3 weeks Short Term Goal 1: Pt to initate HEP-MET Short Term Goal 2: Pt to not exceed 7/10 pain to improve functional capacity for ADLs-progressing Retirement Goals Time Frame for Retirement Goals : 6 weeks Retirement Goal 1: Pt to be comfortable and complient with HEP Retirement Goal 2: Pt to not exceed 3/10 pain with activity to improve functional capacity. Retirement Goal 3: Pt to be able to sit for 8 hour shift without significant increase in pain to improve functional endurance. 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 Minutes Tracking: Time In: 1315 Time Out: 1408 Minutes: 53 Timed Code Treatment Minutes: 50 Minutes Mac Roper PT, DPT Date: 05/10/2022 documented in this encounter [facility] [employer] Work Phone: 05-09-2022 History of Presen t illness Narrative [facility] Inpatient/Observation/Outpatien t Rehabilitation Date: 05/09/2022 Patient Name: Alec Simpson [] Inpatient Acute/Observation [] Outpatient : 1975 [] Pt no showed for scheduled appointment [] Pt refused/declined therapy at this time due to: [] Pt cancelled due to: [] No Reason Given [x] Sick/ill [] Other: Patient was called into work. 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 Yanira Stallworth Date: 05/09/2022 documented in this encounter [employer] Phone: Evaluation note Diagnosis Thyromegaly Goiter, unspecified documented in this encounter [employer] Phone: evaluation note* Diagnosis Screening for malignant neoplasm of cervix Screening for malignant neoplasm of the cervix Acute vaginitis Vaginitis and vulvovaginitis, unspecified documented in this encounter [employer] Phone: evaluation note* Diagnosis Screening mammogram, encounter for documented in this encounter [employer] Phone: evaleiznqn note* Diagnosis Screening mammogram, encounter for documented in this encounter [facility] note* Diagnosis Metatarsalgia, right foot Encounter for cosmetic surgery Other plastic surgery for unacceptable cosmetic appearance documented in this encounter [facility] note* Diagnosis Pre-op testing Preoperative examination, unspecified Encounter for cosmetic surgery Other plastic surgery for unacceptable cosmetic appearance documented in this encounter [facility] note* Diagnosis Abnormal ECG Nonspecific abnormal electrocardiogram (ECG) (EKG) Encounter for cosmetic surgery Other plastic surgery for unacceptable cosmetic appearance documented in this encounter [facility] note* Diagnosis Pain following surgery or procedure- Primary Other acute postoperative pain documented in this encounter [facility] Diagnosis Acute vaginitis Vaginitis and vulvovaginitis, unspecified Diagnosis Screening for cervical cancer Screening for malignant neoplasm of the cervix Diagnosis Acute vaginitis Vaginitis and vulvovaginitis, unspecified Advance Directives No Advanced Directives Records FoundDocuments on File Type Date Recorded Patient Stunner Expl anation Advance Directives and Living Will Power of Sand Temperer Documents on File Type Date Recorded Patient Stunner Expl anation ACP-Advance Directive ACP-Power of Sand Temperer Healthcare Agents on File Name Relationship Healthcare Agent Relationshi p Communication [place] Other Primary Decision Maker Healthcare Agents on File Name Relationship Healthcare Agent Relationshi p Communication [place] Other Primary Decision Maker Healthcare Agents on File Name Relationship Healthcare Agent Relationshi p Communication José [place] Other Primary Decision Maker Healthcare Agents on File Name Relationship Healthcare Agent Relationshi p Communication [place] Other Primary Decision Maker Healthcare Agents on File Name Relationship Healthcare Agent Relationshi p Communication [place] Other Primary Decision Maker Healthcare Agents on File Name Relationship Healthcare Agent Relationshi p Communication José [place] Other Primary Decision Maker Healthcare Agents on File Name Relationship Healthcare Agent Relationshi p Communication [place] Other Primary Decision Maker Healthcare Agents on File Name Relationship Healthcare Agent Relationshi p Communication [place] Other Primary Decision Maker Healthcare Agents on File Name Relationship Healthcare Agent Relationshi p Communication José [place] Other Primary Decision Maker Healthcare Agents on File Name Relationship Healthcare Agent Relationshi p Communication [place] Other Primary Decision Maker Healthcare Agents on File Name Relationship Healthcare Agent Relationshi p Communication José [place] Other Primary Decision Maker Healthcare Agents on File Name Relationship Healthcare Agent Relationshi p Communication José Obinna Other Primary Decision Maker Healthcare Agents on File Name Relationship Healthcare Agent Relationshi p Communication José [place] Other Primary Decision Maker Healthcare Agents on File Name Relationship Healthcare Agent Relationshi p Communication José [place] Other Primary Decision Maker Healthcare Agents on File Name Relationship Healthcare Agent Relationshi p Communication José Obinna Other Primary Decision Maker Healthcare Agents on File Name Relationship Healthcare Agent Relationshi p Communication José Obinna Other Primary Decision Maker [phone] (Home) Healthcare Agents on File Name Relationship Healthcare Agent Relationshi p Communication José Obinna Other Primary Decision Maker Healthcare Agents on File Name Relationship Healthcare Agent Relationshi p Communication José [place] Other Primary Decision Maker Healthcare Agents on File Name Relationship Healthcare Agent Relationshi p Communication José Obinna Other Primary Decision Maker Healthcare Agents on File Name Relationship Healthcare Agent Relationshi p Communication José [place] Other Primary Decision Maker [phone] (Home) Reason for Referral Specialty Diagnoses / Procedures Referred By Praful t Referred To Contact Radiology Diagnoses Thyromegaly Procedures US THYROID Ana Paula Milligan, SENIOR LOGISTICS MANAGER - [employer] [address] [place] [address] Referral ID Status Reason Start Date Expiration Date Visits Re quested Visits Authorized [id number] Open 07/06/2022 07/06/2023 1 1 Specialty Diagnoses / Procedures Referred By Praful t Referred To Contact Radiology Diagnoses Metatarsalgia, right foot Procedures MRI FOOT RIGHT WO CONTRAST Judah Rios, [facility] [address] [place] [address] [place] [address] Referral ID Status Reason Start Date Expiration Date Visits Re quested Visits Authorized [id number] Closed 04/01/2024 09/28/2024 1 1 Specialty Diagnoses / Procedures Referred By Contac t Referred To Contact Cardiology Diagnoses Abnormal ECG Procedures EKG 12 lead José, Ana Paula Santizo, SENIOR LOGISTICS MANAGER - [employer] [address] [place] [address] Referral ID Status Reason Start Date Expiration Date Visits Re quested Visits Authorized [id number] Open 06/02/2024 06/02/2025 1 1 Summary Purpose Family History No Family History Records FoundNo Family History Records FoundNo Family History Records Found Additional Source Comments Care Teams (unrecognized sec tion and content) Residence Counselor Relationship Specialty Start Date End Date Might, Ana Paula Santizo APRN - [employer] [address] [facility] [address] PCP - General Family Nurse Practitioner 12/29/21 Residence Counselor Relationship Specialty Start Date End Date Might, Ana Paula Santizo SENIOR LOGISTICS MANAGER - [employer] [address] [facility] [address] PCP - General Family Nurse Practitioner 12/29/21 Residence Counselor Relationship Specialty Start Date End Date Might, Ana Paula Santizo SENIOR LOGISTICS MANAGER - [employer] [address] [place] [facility] [address] PCP - General Family Nurse Practitioner 12/29/21 Residence Counselor Relationship Specialty Start Date End Date Might, Ana Paula Santizo APRN [employer] [address] [place] [facility] [address] PCP - General Family Nurse Practitioner 12/29/21 Residence Counselor Relationship Specialty Start Date End Date Might, Ana Paula Santizo APRN [employer] [address] [place] [facility] [address] PCP - General Family Nurse Practitioner 12/29/21 Residence Counselor Relationship Specialty Start Date End Date Might, Ana Paula Santizo APRN [facility] [address] [place] [facility] [address] PCP - General Family Nurse Practitioner 12/29/21 Residence Counselor Relationship Specialty Start Date End Date Might, Ana Paula Santizo APRN [employer] [address] [place] [facility] [address] PCP - General Family Nurse Practitioner 12/29/21 Residence Counselor Relationship Specialty Start Date End Date Might, Ana Paula Santizo APRN [employer] [address] [place] [facility] [address] PCP - General Family Nurse Practitioner 12/29/21 Residence Counselor Relationship Specialty Start Date End Date Might, Ana Paula Santizo APRN [facility] [address] [place] [address] PCP - General Family Nurse Practitioner 12/29/21 Residence Counselor Relationship Specialty Start Date End Date MightAna Paula APRN [facility] [address] [place] [address] PCP - General Family Nurse Practitioner 12/29/21 Residence Counselor Relationship Specialty Start Date End Date Might, Ana Paula Santizo APRN [facility] [address] [facility] [place] [address] PCP - General Family Nurse Practitioner 12/29/21 Residence Counselor Relationship Specialty Start Date End Date Might, Ana Paula Santizo APRN [facility] [address] [facility] [place] [address] PCP - General Family Nurse Practitioner 12/29/21 Residence Counselor Relationship Specialty Start Date End Date MightAna Paula APRN [facility] [address] [place] [address] PCP - General Family Nurse Practitioner 12/29/21 Residence Counselor Relationship Specialty Start Date End Date MightAna Paula APRN [facility] [address] [place] [address] PCP - General Family Nurse Practitioner 12/29/21 Residence Counselor Relationship Specialty Start Date End Date Might, Ana Paula Santizo APRN [facility] [address] [place] [address] PCP - General Family Nurse Practitioner 12/29/21 Residence Counselor Relationship Specialty Start Date End Date Might, Ana Paula Santizo SENIOR LOGISTICS MANAGER [facility] [address] [facility] [place] [address] PCP - General Family Nurse Practitioner 12/29/21 Residence Counselor Relationship Specialty Start Date End Date JoséAna Paula APRN [facility] [address] [place] [address] PCP - General Family Nurse Practitioner 12/29/21 Residence Counselor Relationship Specialty Start Date End Date JoséAna Paula SENIOR LOGISTICS MANAGER [facility] [address] [place] [address] PCP - General Family Nurse Practitioner 12/29/21 Residence Counselor Relationship Specialty Start Date End Date JoséAna Paula SENIOR LOGISTICS MANAGER [facility] [address] [place] [address] PCP - General Family Nurse Practitioner 12/29/21 Residence Counselor Relationship Specialty Start Date End Date JoséAna Paula SENIOR LOGISTICS MANAGER [facility] [address] [place] [address] PCP - General Family Nurse Practitioner 12/29/21 Reason for Visit (unrecogniz ed section and content) Specialty Diagnoses / Procedures Referred By Contac t Referred To Contact Radiology Diagnoses Thyromegaly Procedures US THYROID José, Ana Paula Santizo, SENIOR LOGISTICS MANAGER - [facility] [address] [place] [address] Referral ID Status Reason Start Date Expiration Date Visits Re quested Visits Authorized [id number] Open 07/06/2022 07/06/2023 1 1 Specialty Diagnoses / Procedures Referred By Contac t Referred To Contact Radiology Diagnoses Screening mammogram, encounter for Procedures SHAUNNA RENNY DIGITAL SCREEN AUGMENTED BILATERAL SHAUNNA RENNY DIGITAL SCREEN BILATERAL Jazzmine Palmer, SENIOR LOGISTICS MANAGER - [facility] [address] [facility] [address] [address] Referral ID Status Reason Start Date Expiration Date Visits Re quested Visits Authorized [id number] Closed 09/12/2022 09/12/2023 1 1 Referral ID Status Reason Start Date Expiration Date Visits Re quested Visits Authorized [id number] Closed 10/08/2023 10/07/2024 1 1 Specialty Diagnoses / Procedures Referred By Praful brower Referred To Contact Radiology Diagnoses Metatarsalgia, right foot Procedures MRI FOOT RIGHT WO CONTRAST Judah Rios, [facility] [address] [place] [address] [place] [address] Referral ID Status Reason Start Date Expiration Date Visits Re quested Visits Authorized [id number] Closed 04/01/2024 09/28/2024 1 1 Ordered Prescriptions [...] of surgery) 0844 (Given - Provid er: J Luis Au APRN - UNDERWEAR CUTTER) oxyCODONE-acetaminophen (PERCOCET) 5-325 MG per tablet 1 [...] Care 0751 (Patch Applied - Provider: Kassidy Layton RN - Comment: behind right ear) sodium [...] 0747 (New Bag - Prov ider: Kassidy Layton RN)0834 (NoRateChange - Provider: BRITTANY Berkowitz CRNA)1141 (Paused - Provider: BRITTANY Berkowitz CRNA - Comment: Switch to gravity)1142 (Restarted - Provider: BRITTANY Berkowitz CRNA) PRN Medication Order 06/06/2024 06/07/2024 06/08/2024 0.9 [...] Pre-op (day of surgery) BUPivacaine-EPINEPHrine (MARCAINE-w/EPINEPHrine) 0.25% -1:538403 injection (CANCELED) PRN, Starting on Sat06/08/24 at 0956, Until Sat06/08/24 at 1143, Intra-op 0956 (Given - Provid er: Sujata Adrian MD)1010 (Given - Provider: Sujata Adrian MD) gentian shagufta 1 % topical solution (CANCELED) PRN, Starting on Sat06/08/24 at 0855, Intra-op 0855 (Given - Provid er: Sujata Adrian MD - Comment: to the sterile field) [...] 06/06/2024 06/07/2024 06/08/2024 BUPivacaine-EPINEPHrine PF (MARCAINE-w/EPINEPHrine) 0.25% -1:130027 injection 1 dose, Starting on Sat06/08/24 at 0806, Until Sat06/08/24 at 2014, Blaine Shirley: cabinet override, Blaine Shirley: cabinet override 0815 (Due) dexmedeTOMIDine HCl in NaCl (PRECEDEX) 400 MCG/100ML premix infusion 1 dose, Starting on Sat06/08/24 at 0800, Until Sat06/08/24 at 2013, KarlcoreyJ Luis: cabinet override, DudleysantosJ Luis: cabinet override 0815 (Due) gentian shagufta 1 % topical solution Starting on Sat06/08/24 at 0805, For 1 dose, Blaine Shirley: cabinet override 0815 (Due) INFORMATION SOURCE (unrecogn ized section and content) DATE CREATED AUTHOR 06/13/2024 [facility] DATE CREATED AUTHOR AUTHOR'S ORGANIZ ATION 08/19/2024 [facility] DATE CREATED AUTHOR AUTHOR'S ORGANIZ ATION 08/23/2024 [facility] FOR RECORDS PERTAINING TO PATIENTS WHO ARE [...] BE BASED ON THE PRIMARY CLINICAL RECORDS. [facility]. provides no warranty or guarantee of the accuracy or completeness of information in this document.
--- NOTE | 2024-09-09 14:51 | XR_ITS ---
The [address] [address] Patient Name: ALEC LAM MRN: [id number] date: 1975 Sex: F Assigned Patient Location: [facility] Current Patient Location: Accession/Order Number: [id number] Exam Date: 09/09/2024 14:52 Report Date: 09/10/2024 07:38 At the request of: MIGUEL SAAVEDRA Procedure: XR foot KAILASH min 3V EXAMINATION: XR foot KAILASH min 3V HISTORY: Bilateral Foot Pain COMPARISON: No relevant comparison available. FINDINGS: RIGHT FINDINGS: BONES: No acute fracture or dislocation. Fusion of the first metatarsal-phalangeal joint with dorsal plate and screws. Partial bony bridging SOFT TISSUES: Negative. No visible soft tissue swelling. OTHER: Negative. LEFT FINDINGS: BONES: No acute fracture or dislocation. Moderate osteoarthropathy of the first metatarsal-phalangeal joint SOFT TISSUES: Negative. No visible soft tissue swelling. OTHER: Negative. XR/XR foot KAILASH min 3V IMPRESSION: RIGHT CONCLUSION: Stable first metatarsal-phalangeal joint fusion LEFT CONCLUSION: Moderate first metatarsal-phalangeal joint osteoarthritis Electronically authenticated by: NAHOMY KENNY Date: 09/10/2024 07:38
== END 2024-09-09 14:47 | disposition home or self-care (01) ==
LOC: RAD 14:46
PROVIDERS: Visit Provider Podiatrist Foot & Ankle Surgery
DX: M79.672 Pain in left foot (principal); M79.671 Pain in right foot; M24.674 Ankylosis, right foot; M19.072 Primary osteoarthritis, left ankle and foot
CPT/HCPCS: 73630

== ENCOUNTER 2024-10-07 15:04 | Outpatient (OUT) | payer BC, SELFPAY ==
--- NOTE | 2024-10-07 15:08 | XR_ITS ---
The [place] [id number] Patient Name: ALEC LAM MRN: [id number] date: 1975 Sex: F Assigned Patient Location: [facility] Current Patient Location: [facility] Accession/Order Number: [id number] Exam Date: 10/07/2024 23:39 Report Date: 10/07/2024 23:40 At the request of: MIGUEL SAAVEDRA DPLukas Procedure: XR foot RT min 3V RIGHT FOOT - 3 views CLINICAL HISTORY: Follow-up postop right foot. COMPARISON: Right foot 09/09/2024 FINDINGS: MTP joint fusion of the first digit without evidence of hardware complication or change in alignment. No acute bony process is seen. Plantar spurring. XR/XR foot RT min 3V IMPRESSION: NO HARDWARE COMPLICATION. Impression dictated by: Marcio Artis Jr. DEdiOEdi10/07/2024 11:40 PM [facility]ation [facility] Electronically authenticated by: [id number] Y Date: 10/07/2024 23:40
== END 2024-10-07 15:05 | disposition home or self-care (01) ==
LOC: RAD 15:04
PROVIDERS: Visit Provider Podiatrist Foot & Ankle Surgery
DX: M79.671 Pain in right foot (principal); M24.674 Ankylosis, right foot
CPT/HCPCS: 73630

== ENCOUNTER 2024-12-18 09:26 | Outpatient (OUT) | payer BC, SELFPAY ==
--- NOTE | 2024-12-18 09:34 | XR_ITS ---
The [address] [address] Patient Name: ALEC LAM MRN: [id number] date: 1975 Sex: F Assigned Patient Location: [facility] Current Patient Location: [facility] Accession/Order Number: [id number] Exam Date: 12/18/2024 10:40 Report Date: 12/18/2024 10:42 At the request of: MIGUEL SAAVEDRA DPLukas Procedure: XR foot RT min 3V XR foot RT min 3V 12/18/2024 9:45 AM SIGNS AND SYMPTOMS: ^Right Foot Pain PROTOCOL: Frontal, lateral, and oblique radiographs of the right foot COMPARISON: 10/07/2024 FINDINGS: There is similar fusion across the first metatarsophalangeal joint. Degenerative changes are noted in the proximal interphalangeal joint of the second digit 2 similar extent. No fracture or dislocation. No hardware complication or change in alignment. There is Achilles surface calcaneal spurring. XR/XR foot RT min 3V IMPRESSION: Significant degenerative changes are noted in the second proximal phalangeal joint. Unchanged fusion hardware in the first metatarsophalangeal joint. No acute bony injury. Impression dictated by: Devin Archer M.D. 12/18/2024 10:42 AM Dictation Location: [employer] [place] Electronically authenticated by: [id number] Y Date: 12/18/2024 10:42
== END 2024-12-18 09:27 | disposition home or self-care (01) ==
PROVIDERS: Visit Provider Podiatrist Foot & Ankle Surgery
DX: M79.671 Pain in right foot (principal); M24.674 Ankylosis, right foot
CPT/HCPCS: 73630